=== PATIENT | female | born 1965 | race Caucasian/White ===

== ENCOUNTER → 2020-07-31 13:30 | Outpatient (BNVA) | payer OTHER, SELFPAY | PROVIDERS: Visit Provider Orthopaedic Surgery | DX: M65.4 Radial styloid tenosynovitis [de Quervain] (principal) | CPT/HCPCS: 99212 ==

== ENCOUNTER 2021-01-10 09:09 | Outpatient (REF) | payer OTHER, SELFPAY ==
[2021-01-10 11:19] LABS: MANUAL DIFF FLAG NO
[2021-01-10 11:22] LABS: Basophils Percent Auto 0.3 % (0-2); Eosinophils Absolute Auto 0.2 X10*3/uL (0.0-0.4); Hematocrit 36.7 % (37-47); Hemoglobin 11.3 g/dl (12.0-16.0); Imm Gran Abs Auto 0.02 X10*3/uL (0.00-0.03); Imm Gran Pct Auto 0.3 % (0.0-0.4); Lymphocytes Absolute Auto 1.8 X10*3/uL (1.2-4.9); Lymphocytes Percent Auto 27.5 % (20-40); Mean Corpuscular HGB Conc 30.8 g/dl (31.0-35.0); Mean Corpuscular Hemoglobin 27.9 pg (27.0-33.0); Mean Corpuscular Volume 90.6 fL (80-98); Mean Platelet Volume 10.9 fL (9.4-12.3); Monocytes Absolute Auto 0.6 X10*3/uL (0.1-1.2); Monocytes Percent Auto 8.6 % (2-11); Neutrophils Absolute Auto 3.9 X10*3/uL (2.0-8.3); Neutrophils Percent Auto 60.3 % (45-73); Platelet Count 315 X10*3/uL (160-400); Red Blood Count 4.05 X10*6/uL (4.20-5.50); Red Cell Distribution Width 13.9 % (11.0-16.0); White Blood Count 6.4 X10*3/uL (4.8-10.8)
[2021-01-10 12:25] LABS: Alanine Aminotransferase 15 U/L (0-31); Albumin Level 4.2 g/dL (3.5-5.0); Alkaline Phosphatase 114 U/L (39-117); Anion Gap 13 (12-20); Aspartate Amino Transferase 16 U/L (5-31); Bilirubin Total 0.4 mg/dL (0.0-1.0); Blood Urea Nitrogen 20 mg/dL (9-16); Calcium 9.7 mg/dL (8.4-10.2); Carbon Dioxide 29 mmol/L (22-29); Chloride 105 mmol/L (96-108); Cholesterol 183 mg/dL; Estimated Glomerular Filt Rate > 60; Glucose Fasting 111 mg/dL (60-99); HDL Cholesterol 46 mg/dL; LDL Cholesterol Calculated 78 mg/dl; Potassium 4.7 mmol/L (3.3-5.1); Sodium 142 mmol/L (135-145); Total Protein 7.3 g/dL (6.5-8.0); Triglycerides 299 mg/dL
== END 2021-01-10 09:10 | disposition home or self-care (01) ==
LOC: HO.LAB 09:09
PROVIDERS: Absent Provider Nurse Practitioner Family; PCP Nurse Practitioner Family; Visit Provider Physician Assistant
DX: K52.9 Noninfective gastroenteritis and colitis, unspecified (principal); K21.9 Gastro-esophageal reflux disease without esophagitis; Z87.19 Personal history of other diseases of the digestive system
CPT/HCPCS: 36415; 80053; 80061; 85025; Q3014

== ENCOUNTER → 2021-05-29 13:37 | Outpatient (BNVA) | payer OTHER, SELFPAY | PROVIDERS: PCP Internal Medicine; Referring Provider Internal Medicine; Visit Provider Physician Assistant ==

== ENCOUNTER → 2021-05-30 07:10 | Outpatient (BNVA) | payer OTHER, SELFPAY | PROVIDERS: PCP Internal Medicine; Visit Provider Surgery ==

== ENCOUNTER → 2021-06-04 09:16 | Outpatient (BNVA) | payer OTHER, SELFPAY | PROVIDERS: PCP Internal Medicine; Visit Provider Surgery | DX: Z13.89 Encounter for screening for other disorder (principal) | CPT/HCPCS: Q3014 ==

== ENCOUNTER 2021-06-18 11:29 | Outpatient (REF) | payer OTHER, SELFPAY ==
--- NOTE | ~2021-06-18 | XR_ITS ---
EXAMINATION: XR CHEST CLINICAL INFORMATION: Obesity COMPARISON: None TECHNIQUE: 2 views of the chest were obtained. FINDINGS: The cardiac and mediastinal contours are normal. The lungs are clear. There is no pleural effusion or pneumothorax. There are degenerative changes of the spine. XR/XR chest 2V IMPRESSION: No evidence for acute disease in the chest.
--- NOTE | 2021-06-18 12:09 | ECG_ITS ---
Test Reason : sob Blood Pressure : / mmHG Vent. Rate : 056 BPM Atrial Rate : 056 BPM P-R Int : 188 ms QRS Dur : 094 ms QT Int : 424 ms P-R-T Axes : 048 018 049 degrees QTc Int : 409 ms Sinus bradycardia Otherwise normal ECG No previous ECGs available Referred By: Vipul Boyce Electronically Signed By:MARIS BAUTISTA
[2021-06-18 12:17] LABS: MANUAL DIFF FLAG NO
[2021-06-18 12:27] LABS: Basophils Percent Auto 0.5 % (0-2); Eosinophils Absolute Auto 0.2 X10*3/uL (0.0-0.4); Eosinophils Percent Auto 4.2 % (0-4); Hematocrit 37.7 % (37-47); Hemoglobin 11.7 g/dl (12.0-16.0); Imm Gran Abs Auto 0.01 X10*3/uL (0.00-0.03); Imm Gran Pct Auto 0.2 % (0.0-0.4); Lymphocytes Absolute Auto 1.4 X10*3/uL (1.2-4.9); Lymphocytes Percent Auto 31.5 % (20-40); Mean Corpuscular Hemoglobin 27.8 pg (27.0-33.0); Mean Corpuscular Volume 89.5 fL (80-98); Mean Platelet Volume 11.1 fL (9.4-12.3); Monocytes Absolute Auto 0.3 X10*3/uL (0.1-1.2); Monocytes Percent Auto 7.2 % (2-11); Neutrophils Absolute Auto 2.4 X10*3/uL (2.0-8.3); Neutrophils Percent Auto 56.4 % (45-73); Platelet Count 317 X10*3/uL (160-400); Red Blood Count 4.21 X10*6/uL (4.20-5.50); Red Cell Distribution Width 13.8 % (11.0-16.0); White Blood Count 4.3 X10*3/uL (4.8-10.8)
[2021-06-18 13:04] LABS: Estimated Average Glucose 134 mg/dL; Hemoglobin A1c % 6.3 %
[2021-06-18 13:44] LABS: Vitamin B12 768 pg/mL (200-900)
[2021-06-18 15:08] LABS: Ferritin 21 ng/mL (10-250); TSH reflex Free T4 1.14 uIU/mL (0.32-4.0); Vitamin D 25-OH Total 44.2 ng/mL (>30)
[2021-06-18 15:16] LABS: Alanine Aminotransferase 16 U/L (0-31); Albumin Level 4.1 g/dL (3.5-5.0); Alkaline Phosphatase 94 U/L (39-117); Anion Gap 13 (12-20); Aspartate Amino Transferase 19 U/L (5-31); Bilirubin Total 0.3 mg/dL (0.0-1.0); Blood Urea Nitrogen 12 mg/dL (9-16); C Reactive Protein 0.22 mg/dL (< or = 0.50); Calcium 9.5 mg/dL (8.4-10.2); Carbon Dioxide 27 mmol/L (22-29); Chloride 108 mmol/L (96-108); Cholesterol 140 mg/dL; Estimated Glomerular Filt Rate > 60; Glucose Random 113 mg/dL (60-115); HDL Cholesterol 47 mg/dL; Iron 52 mcg/dL (30-160); LDL Cholesterol Calculated 70 mg/dl; Percent Iron Saturation 15 % (15-50); Potassium 4.5 mmol/L (3.3-5.1); Sodium 143 mmol/L (135-145); Total Iron Binding Capacity 338 mcg/dL (228-428); Total Protein 6.9 g/dL (6.5-8.0); Triglycerides 119 mg/dL; Unsaturated Iron Binding 286 ug/dL
[2021-06-19 18:17] LABS: Insulin Level Total 6.7 uIU/mL
[2021-06-19 18:27] LABS: Calcium (PTHI) 9.6 mg/dL (8.6-10.4); PTHI 34 pg/mL (14-64)
[2021-06-21 06:28] LABS: Zinc 74 mcg/dL (60-130)
[2021-06-22 12:16] LABS: Vitamin B1 16 nmol/L (8-30)
[2021-06-24 00:26] LABS: Vitamin A 74 mcg/dL (38-98)
== END 2021-06-18 11:30 | disposition home or self-care (01) ==
LOC: HO.LAB 11:29
PROVIDERS: PCP Internal Medicine; Visit Provider Surgery
DX: K21.9 Gastro-esophageal reflux disease without esophagitis (principal); E66.01 Morbid (severe) obesity due to excess calories; E11.9 Type 2 diabetes mellitus without complications; E78.5 Hyperlipidemia, unspecified; G47.30 Sleep apnea, unspecified
CPT/HCPCS: 36415; 71046; 80053; 80061; 82306; 82607; 82728; 82746; 83036; 83525; 83540; 83970; 84425; 84443; 84590; 84630; 85025; 86140; 93005

== ENCOUNTER 2021-06-28 14:31 | Outpatient (REF) | payer OTHER, SELFPAY ==
[2021-06-29 12:09] LABS: H Pylori Breath Test Negative (Negative)
== END 2021-06-28 14:32 | disposition home or self-care (01) ==
LOC: CF 14:31
PROVIDERS: Surgery; Visit Provider Physician Assistant
DX: Z11.0 Encounter for screening for intestinal infectious diseases (principal); K25.9 Gastric ulcer, unspecified as acute or chronic, without hemorrhage or perforation
CPT/HCPCS: 36415; 83013; 99211

== ENCOUNTER → 2021-06-29 11:14 | Outpatient (BNVA) | payer OTHER, SELFPAY | PROVIDERS: PCP Internal Medicine; Visit Provider Surgery | CPT/HCPCS: Q3014 ==

== ENCOUNTER → 2021-07-12 10:15 | Outpatient (BNVA) | payer OTHER, SELFPAY | PROVIDERS: PCP Internal Medicine; Referring Provider Internal Medicine; Visit Provider Dietitian, Registered | DX: E66.9 Obesity, unspecified (principal); Z68.39 Body mass index [BMI] 39.0-39.9, adult | CPT/HCPCS: 97802 ==

== ENCOUNTER 2021-07-25 08:07 | Outpatient (REF) | payer OTHER, SELFPAY ==
--- NOTE | ~2021-07-25 | FL_ITS ---
EXAMINATION: XR GI SERIES CLINICAL INFORMATION: Obesity. Preop. COMPARISON: None TECHNIQUE: Upper GI was performed using thin and thick barium and effervescent granules. FINDINGS: Esophageal motility is normal. There is a small sliding-type hiatal hernia and mild gastroesophageal reflux. The stomach and duodenum are normal-appearing. No fold thickening, mass, ulcer or stricture is seen. FLUOROSCOPY TIME: 1 minute DOSE AREA PRODUCT: 11 christensen per centimeter squared. 24 saved fluoroscopic images. FL/FL upper GI series IMPRESSION: Small sliding-type hiatal hernia and mild gastroesophageal reflux. Otherwise unremarkable exam.
--- NOTE | ~2021-07-25 | US_ITS ---
EXAMINATION: US COMPLETE ABDOMEN WITH LIVER ELASTOGRAPHY CLINICAL INFORMATION: Obesity COMPARISON: None. TECHNIQUE: Real-time imaging of the abdominal viscera. Noninvasive ultrasound liver fibrosis assessment is performed using Xochilt ElastPQ point quantification shear wave elastography (pSWE) with a C5-2 MHz transducer. Multiple elastography samples are obtained. FINDINGS: PANCREAS: The visualized pancreatic head and body are normal in appearance. The remainder of the pancreas is obscured from visualization by the overlying bowel gas. ABDOMINAL AORTA: The proximal and middle aortic segments are normal in caliber. The distal abdominal aorta is not well visualized due to bowel gas. INFERIOR VENA CAVA: Visualized portions are normal. LIVER: Liver echotexture is slightly increased suggestive of fatty infiltration. There is a hypoechoic area adjacent to the gallbladder suggestive of focal fatty sparing. There is a 1.4 x 0.8 x 1.5 cm hypoechoic lesion in the peripheral left lobe of the liver suggestive of a cyst. No other focal liver lesion. No biliary duct dilatation. The right lobe measures 17 cm in length. The left lobe measures 11 cm in length. Portal flow is normal/hepatopedal Shear wave liver elastography median stiffness is 1.2 m/s (reference: normal median stiffness is 1.3 m/s or less). IQR/median stiffness to assess sampling precision is 0.16 (reference: good quality data set is IQR/median stiffness of 0.15 or less). GALLBLADDER: Normal. The gallbladder is physiologically distended without evidence of stones, sludge, polyps, wall thickening or pericholecystic fluid. COMMON BILE DUCT: Normal in caliber measuring 0.3 cm in diameter. RIGHT KIDNEY: Normal. No hydronephrosis. No renal calculi or focal parenchymal lesions. The kidney measures 11 cm in maximum dimension. LEFT KIDNEY: Normal. No hydronephrosis. No renal calculi or focal parenchymal lesions. The kidney measures 11.5 cm in maximum dimension. SPLEEN: Normal. The spleen measures 10 cm in maximum dimension. FREE FLUID: None. US/US abdomen comp w elastography IMPRESSION: 1. Impression: Echogenic liver suggestive of fatty infiltration. Small cyst in the left lobe of the liver. Limited visualization of the pancreas and distal abdominal aorta. 2. Liver elastography: Adequate liver sampling. Normal liver stiffness. REFERENCE: Society of Radiologists in Ultrasound Liver Stiffness Thresholds (2019): LIVER STIFFNESS THRESHOLDS: *Liver Stiffness equal or less than 1.3 m/s: High probability of being normal. *Liver Stiffness less than 1.7 m/s: In the absence of other known clinical signs, rules out compensated advanced chronic liver disease. *Liver Stiffness 1.7-2.1 m/s: Suggestive of compensated advanced chronic liver disease but need further test for confirmation. *Liver Stiffness over 2.1 m/s: Rules in compensated advanced chronic liver disease. *Liver Stiffness over 2.4 m/s: Suggestive of clinically significant portal hypertension. QUALITY OF DATA SET: *IQR/Median value equal or less than 0.15 implies a quality data set. *IQR/Median value over 0.15 implies a poor quality data set. SIGNIFICANT CHANGE FROM PRIOR EXAM: Significant change if liver stiffness measurement is 10% or greater from prior exam. OTHER CONSIDERATIONS: The stage of liver fibrosis may be overestimated in the setting of acute hepatitis, liver inflammation, elevated liver function tests, hepatic vascular congestion, obstructive cholestasis, non-fasting state, and infiltrative diseases such as amyloidosis and lymphoma. In some patients with NAFLD, the liver stiffness thresholds for compensated advanced chronic liver disease may be lower. In causes other than viral hepatitis and NAFLD, liver stiffness thresholds are not well established.
== END 2021-07-25 08:08 | disposition home or self-care (01) ==
LOC: HO.US 08:07
PROVIDERS: PCP Internal Medicine; Visit Provider Surgery
DX: Z01.818 Encounter for other preprocedural examination (principal); K21.9 Gastro-esophageal reflux disease without esophagitis; E66.01 Morbid (severe) obesity due to excess calories; E11.9 Type 2 diabetes mellitus without complications; E78.5 Hyperlipidemia, unspecified; G47.30 Sleep apnea, unspecified
CPT/HCPCS: 74240; 76705; 76981

== ENCOUNTER → 2021-07-27 08:23 | Outpatient (BNVA) | payer OTHER, SELFPAY | PROVIDERS: PCP Internal Medicine; Referring Provider Surgery; Visit Provider Dietitian, Registered | DX: E66.9 Obesity, unspecified (principal); Z68.38 Body mass index [BMI] 38.0-38.9, adult | CPT/HCPCS: 97803 ==

== ENCOUNTER → 2021-08-01 08:07 | Outpatient (BNVA) | payer OTHER, SELFPAY | PROVIDERS: PCP Internal Medicine; Visit Provider Surgery | DX: E66.9 Obesity, unspecified (principal); Z68.39 Body mass index [BMI] 39.0-39.9, adult | CPT/HCPCS: Q3014 ==

== ENCOUNTER → 2021-08-29 08:00 | Outpatient (BNVA) | payer OTHER, SELFPAY | PROVIDERS: PCP Internal Medicine; Visit Provider Surgery | DX: E11.9 Type 2 diabetes mellitus without complications (principal); E78.00 Pure hypercholesterolemia, unspecified; E78.5 Hyperlipidemia, unspecified; E66.9 Obesity, unspecified; K21.9 Gastro-esophageal reflux disease without esophagitis | CPT/HCPCS: Q3014 ==

== ENCOUNTER → 2021-08-31 10:08 | Outpatient (BNVA) | payer OTHER, SELFPAY | PROVIDERS: PCP Internal Medicine; Referring Provider Internal Medicine; Visit Provider Physician Assistant ==

== ENCOUNTER 2021-09-06 14:00 | Inpatient (IN) | payer OTHER, SELFPAY ==
[2021-08-31 12:56] LABS: MANUAL DIFF FLAG NO
[2021-08-31 13:31] LABS: Basophils Percent Auto 0.5 % (0-2); Eosinophils Absolute Auto 0.1 X10*3/uL (0.0-0.4); Eosinophils Percent Auto 2.4 % (0-4); Hematocrit 39.5 % (37.0-47.0); Hemoglobin 12.3 g/dl (12.0-16.0); Lymphocytes Absolute Auto 1.7 X10*3/uL (1.2-4.9); Lymphocytes Percent Auto 31.3 % (20-40); Mean Corpuscular HGB Conc 31.1 g/dl (31.0-35.0); Mean Corpuscular Hemoglobin 27.6 pg (27.0-33.0); Mean Corpuscular Volume 88.8 fL (80.0-98.0); Mean Platelet Volume 10.8 fL (9.4-12.3); Monocytes Absolute Auto 0.4 X10*3/uL (0.1-1.2); Neutrophils Absolute Auto 3.2 x10*3/uL (2.0-8.3); Neutrophils Percent Auto 57.8 % (45-73); Platelet Count 365 X10*3/uL (160-400); Red Blood Count 4.45 X10*6/uL (4.20-5.50); White Blood Count 5.5 X10*3/uL (4.8-10.8)
[2021-08-31 13:35] LABS: INTERNATIONAL NORM RATIO 1.2 (0.9-1.1); Prothrombin Time 13.7 SEC (9.9-13.0)
[2021-08-31 13:38] LABS: Partial Thromboplastin Time 44.9 SEC (24.1-38.0)
[2021-08-31 14:00] LABS: Alanine Aminotransferase 12 U/L (0-31); Albumin Level 4.5 g/dL (3.5-5.0); Alkaline Phosphatase 92 U/L (39-117); Anion Gap 14 (12-20); Aspartate Amino Transferase 17 U/L (5-31); Bilirubin Total 0.5 mg/dL (0.0-1.0); Blood Urea Nitrogen 24 mg/dL (9-16); C Reactive Protein 0.37 mg/dL (< or = 0.50); Calcium 10.2 mg/dL (8.4-10.2); Carbon Dioxide 28 mmol/L (22-29); Chloride 107 mmol/L (96-108); Cholesterol 176 mg/dL; Estimated Glomerular Filt Rate > 60; Glucose Random 103 mg/dL (60-115); HDL Cholesterol 50 mg/dL; LDL Cholesterol Calculated 109 mg/dl; Potassium 4.6 mmol/L (3.3-5.1); Sodium 144 mmol/L (135-145); Total Protein 7.8 g/dL (6.5-8.0); Triglycerides 85 mg/dL
[2021-08-31 14:01] LABS: Estimated Average Glucose 131 mg/dL; Hemoglobin A1c % 6.2 %
[2021-08-31 14:23] LABS: Insulin 10 uU/mL (2-29); TSH reflex Free T4 0.74 uIU/mL (0.32-4.0)
--- NOTE | 2021-09-01 19:05 | MHC.SHP ---
Pre-Procedural Eval Section A Date of Service: 09/01/21 The patient is an INPATIENT: Yes The History & Physical has been completed within 30 days and I have reviewed it.: No Section B Chief Complaint: Obesity Relevant Family History (Specify if Yes): Yes Relevant Social History: None Present Medications: None Medical History: No relevant PMH History of Previous Operations: No relevant previous surgery Allergies: Allergies Allergy/AdvReac Type Severity Reaction Status Date / Time penicillin V Allergy Intermediate Hives Verified 08/29/21 12:58 Review of Systems Sugical H&P ROS: Negative: Constitution, Cardiovascular, Respiratory, Neurological, Psychiatric, Hem-Onc, Allergic/Immunologic, Gastrointestinal, Genitourinary, Musculoskeletal, Integumentary, Endocrine and Eyes/Ears/Nose/Throat Exam Surgical H&P Exam: Normal: HEENT, Normal: Heart, Normal: Lungs, Normal: Extremities, Normal: Abdomen, Normal: Skin and Normal: Neurological Plan Diagnosis/Plan: Unchanged I have reviewed the history and physical and performed a pertinent physical examination on my patient. No changes have occurred unless specified.
[2021-09-03 12:53] VITALS: BMI 37.6
--- NOTE | 2021-09-05 09:11 | HO.ANESPROP2 ---
Documented by User: Damaris Hernandez NP 09/05/21 09:13 HPI - Anesthesia Eval Consult details Narrative: 55yo F for Gastrectomy Sleeve, EGD, Poss Diaphragmatic Hernia, Poss Ventral Hernia, Poss open No blood products d/t worship [facility] Active Problems Active Problems: All Active Problems (Updated 09/03/21 @ 13:00 by Charlene Tapia, DANIEL) Change in bowel habit (Acute) Acid reflux (Acute) Obesity (Acute) BMI 39.0-39.9,adult (Acute) BMI 38.0-38.9,adult (Acute) Insomnia (Acute) Bipolar 1 disorder (Acute) Asthma (Acute) Hyperlipidemia (Acute) Sleep apnea with use of continuous positive airway pressure (CPAP) (Acute) Plantar fasciitis of right foot (Acute) Hypovitaminosis D (Acute) Pure hypercholesterolemia (Acute) Moderately severe recurrent major depression (Acute) Morbid obesity (Acute) Type 2 diabetes mellitus (Acute) All medications reviewed (Acute) Anxiety and depression (Acute) High cholesterol (Acute) Gastric ulcer (Acute) Carpal tunnel syndrome (Acute) De Quervain's disease (radial styloid tenosynovitis) (Acute) Past Medical History Medical History All medications reviewed Anxiety and depression Asthma Bipolar 1 disorder Carpal tunnel syndrome De Quervain's disease (radial styloid tenosynovitis) Gastric ulcer High cholesterol Hx of cardiac murmur Hx of head injury Hyperlipidemia Hypovitaminosis D Insomnia Migraines Moderately severe recurrent major depression Morbid obesity Patient is Taoism Plantar fasciitis of right foot Presence of dental bridge PTSD (post-traumatic stress disorder) Pure hypercholesterolemia Sleep apnea with use of continuous positive airway pressure (CPAP) Type 2 diabetes mellitus Family History Family History (Updated 05/16/21 @ 10:05 by INDY Mandel) Mother No problems noted. Father Alzheimers disease Diabetes Mother Alzheimers disease Osteoarthritis Rheumatoid arthritis Sister Mental disability Sister Cirrhosis Surgical History Surgical History History of appendectomy (~2013) Hx of tubal ligation Social History Social History (Updated 05/29/21 @ 13:06 by INDY Cr) Housing: House Are you a primary home care scheduler to a significant other at home: No Do you presently have visiting nurse or other home services: No Alcohol intake: never Patient Tobacco Use Status: Never used Tobacco e-Cigarette/Vaping Use: Never Used Second Hand Smoke Exposure: No service: No Current occupational status: unemployed Current occupation: right handed Meds Allergies Allergy/AdvReac Type Severity Reaction Status Date / Time penicillin V Allergy Intermediate Hives Verified 09/06/21 08:38 Home Medications Medication Instructions Recorded Confirmed Last Taken Type biotin 10,000 mcg-keratin 100 mg tab PO 07/31/20 08/29/21 Unknown History tablet (Biotin Plus Keratin) cholecalciferol (vitamin D3) 125 125 mcg PO DAILY 07/31/20 08/29/21 Unknown History mcg (5,000 unit) tablet (Vitamin D3) clonazepam 1 mg tablet 1 mg PO BID 07/31/20 09/03/21 Unknown History eszopiclone 3 mg tablet 3 mg PO BEDTIME 07/31/20 09/03/21 Unknown History hydroxyzine HCl 50 mg tablet 25 mg PO BEDTIME 07/31/20 09/03/21 Unknown History multivitamin-ferrous 1 tab PO DAILY 07/31/20 08/29/21 Unknown History fumarate-folic acid 18 mg-400 mcg tablet albuterol sulfate 90 mcg/actuation 2 puff INHALATION Q6H PRN 06/04/21 09/03/21 Unknown History aerosol inhaler cyclobenzaprine 5 mg tablet 5 mg PO TID PRN 06/04/21 08/29/21 Unknown History Exam Exam Date and Time: September 05, 2021 0911 Height,Weight and Vital Signs: Height 5 ft 2 in Weight 93.44 kg Pertinent Lab Results Pertinent Lab Results: Laboratory Tests 08/31/21 08/31/21 08/31/21 12:54 12:54 12:54 WBC 5.5 RBC 4.45 Hgb 12.3 Hct 39.5 MCV 88.8 MCH 27.6 MCHC 31.1 RDW 14.0 Plt Count 365 MPV 10.8 Immature Gran % (Auto) 0.0 Neut % (Auto) 57.8 Lymph % (Auto) 31.3 [place] % (Auto) 8.0 Eos % (Auto) 2.4 Baso % (Auto) 0.5 Lymph # (Auto) 1.7 [place] # (Auto) 0.4 Eos # (Auto) 0.1 Baso # (Auto) 0.0 Abs Immat Gran (auto) 0.00 Absolute Neuts (auto) 3.2 Absolute Nucleated RBC 0.000 Nucleated RBC % (auto) 0.0 PT 13.7 H INR 1.2 H APTT 44.9 H Sodium 144 Potassium 4.6 Chloride 107 Carbon Dioxide 28 Anion Gap 14 BUN 24 H Creatinine 0.90 Estim Creat Clear Calc TNP Estimated GFR > 60 Random Glucose 103 Estimat Average Glucose Hemoglobin A1c % Insulin Level 10 Calcium 10.2 D Total Bilirubin 0.5 AST 17 ALT 12 Alkaline Phosphatase 92 C-Reactive Protein 0.37 Total Protein 7.8 Albumin 4.5 Triglycerides 85 Cholesterol 176 D LDL Cholesterol, Calc 109 HDL Cholesterol 50 TSH 0.74 Blood Type Antibody Screen 08/31/21 08/31/21 12:54 12:55 WBC RBC Hgb Hct MCV MCH MCHC RDW Plt Count MPV Immature Gran % (Auto) Neut % (Auto) Lymph % (Auto) [place] % (Auto) Eos % (Auto) Baso % (Auto) Lymph # (Auto) [place] # (Auto) Eos # (Auto) Baso # (Auto) Abs Immat Gran (auto) Absolute Neuts (auto) Absolute Nucleated RBC Nucleated RBC % (auto) PT INR APTT Sodium Potassium Chloride Carbon Dioxide Anion Gap BUN Creatinine Estim Creat Clear Calc Estimated GFR Random Glucose Estimat Average Glucose 131 Hemoglobin A1c % 6.2 Insulin Level Calcium Total Bilirubin AST ALT Alkaline Phosphatase C-Reactive Protein Total Protein Albumin Triglycerides Cholesterol LDL Cholesterol, Calc HDL Cholesterol TSH Blood Type O Positive Antibody Screen NEGATIVE Narrative Narrative: EKG 05/2021 Vent. Rate : 056 BPM ? ? Atrial Rate : 056 BPM ?? P-R Int : 188 ms? QRS Dur : 094 ms ? ? QT Int : 424 ms ? ? ? P-R-T Axes : 048 018 049 degrees ?? QTc Int : 409 ms ? Sinus bradycardia Otherwise normal ECG No previous ECGs available Assessment and Plan Assessment Anesthesia Assessment: Chart Reviewed Documented by User: Pardeep Erazo 09/06/21 09:14 [facility] Past Medical History Medical History All medications reviewed Anxiety and depression Asthma Bipolar 1 disorder Carpal tunnel syndrome De Quervain's disease (radial styloid tenosynovitis) Gastric ulcer High cholesterol Hx of cardiac murmur Hx of head injury Hyperlipidemia Hypovitaminosis D Insomnia Migraines Moderately severe recurrent major depression Morbid obesity Patient is Taoism Plantar fasciitis of right foot Presence of dental bridge PTSD (post-traumatic stress disorder) Pure hypercholesterolemia Sleep apnea with use of continuous positive airway pressure (CPAP) Type 2 diabetes mellitus Functional capacity: independent ambulation (Greater than 4 mets . Excercises for about an hour. ) Family History Family History (Updated 05/16/21 @ 10:05 by INDY Mandel) Mother No problems noted. Father Alzheimers disease Diabetes Mother Alzheimers disease Osteoarthritis Rheumatoid arthritis Sister Mental disability Sister Cirrhosis Family history of problems with anesthesia: No Surgical History Surgical History History of appendectomy (~2013) Hx of tubal ligation History of Problems with Anesthesia: No Social History Social History (Updated 05/29/21 @ 13:06 by Mark Merchant Mary) Housing: House Are you a primary home care scheduler to a significant other at home: No Do you presently have visiting nurse or other home services: No Alcohol intake: never Patient Tobacco Use Status: Never used Tobacco e-Cigarette/Vaping Use: Never Used Second Hand Smoke Exposure: No service: No Current occupational status: unemployed Current occupation: right handed Meds Allergies Allergy/AdvReac Type Severity Reaction Status Date / Time penicillin V Allergy Intermediate Hives Verified 09/06/21 08:38 Home Medications Medication Instructions Recorded Confirmed Last Taken Type biotin 10,000 mcg-keratin 100 mg tab PO 07/31/20 08/29/21 Unknown History tablet (Biotin Plus Keratin) cholecalciferol (vitamin D3) 125 125 mcg PO DAILY 07/31/20 08/29/21 Unknown History mcg (5,000 unit) tablet (Vitamin D3) clonazepam 1 mg tablet 1 mg PO BID 07/31/20 09/03/21 Unknown History eszopiclone 3 mg tablet 3 mg PO BEDTIME 07/31/20 09/03/21 Unknown History hydroxyzine HCl 50 mg tablet 25 mg PO BEDTIME 07/31/20 09/03/21 Unknown History multivitamin-ferrous 1 tab PO DAILY 07/31/20 08/29/21 Unknown History fumarate-folic acid 18 mg-400 mcg tablet albuterol sulfate 90 mcg/actuation 2 puff INHALATION Q6H PRN 06/04/21 09/03/21 Unknown History aerosol inhaler cyclobenzaprine 5 mg tablet 5 mg PO TID PRN 06/04/21 08/29/21 Unknown History Exam Airway Mallampati Class: II TM Dist: >3cm Neck ROM: Full Partial: Lower Loose/Missing/Broken Teeth: Yes Heart: rrr Lungs: bl breath sounds Assessment and Plan Assessment Anesthesia Assessment: Anesthesia Plan Discussed Final Anesthetic Review Family History of Problems with Anesthesia: No History of Problems with Anesthesia: No NPO: Yes ASA Class: III Final Preanesthetic Review: Meds/Allgs Chart Reviewed Patient Risk: Intermediate Procedure Risk: Intermediate Anesthetic Plan Anesthetic Plan: GA Disposition: Standard PACU
[2021-09-06] VITALS (21 sets, daily range): BP systolic 126–158; BP diastolic 72–85; PULSE 69–81; RESP 12–24; TEMP 36–36.9; O2SAT 96–100
[2021-09-06 09:03] LABS: COVID-19 Test Negative (Negative)
[2021-09-06] MEDS: Lactated Ringers 1,000 ML 100 ML IVCONT ×2 (09:24→15:02)
[2021-09-06] MEDS: Lactated Ringers 1,000 ML 999 ML IV (09:26)
[2021-09-06 09:36] LABS: Glucose, Whole Blood 78 mg/dL (60-115)
--- NOTE | 2021-09-06 13:58 | P.BOP_ITS ---
Brief Operative Note Date of Service: 09/06/21 Pre-op diagnosis: Severe obesity with comorbidities (see below) Post-op diagnosis: same (& diaphragmatic hernia and abdominal adhesions and gastric polyps) Procedure: INITIAL PATIENT BMI ON PRESENTATION AT OUR OFFICE: 42 kg/m2 LAST BMI BEFORE SURGERY: 38.1 kg/m2 COMORBIDITIES: non-insulin dependent diabetes melitus, sleep apnea on CPAP, GERD, bipolar disorder, asthma, knee pain, diaphragmatic hernia, depression, anxiety, liver steatosis, insomnia The patient participated in an intensive weekly lifestyle ?intervention and exercise program during which the patient ?has lost between the initial office visit and the last preoperative visit 22.6lbs, or 9.84% of initial actual body weight. The patient met the BMI-criteria for bariatric surgery based on the BMI on initial presentation. The patient should not be penalized for achieving such weight loss because ?it is not sustainable long-term without surgical intervention and it was achieved in preparation for bariatric surgery ?under my direction and based on my published research ([email or web address] and? [email or web address]/[email or web address]/pdf ) ?that a 10% preoperative weight loss improves long-term weight loss after surgery and reduces perioperative complications.? Insurance carriers such as [facility] have endorsed my recommendations ?and have included in their policies criteria to include a 10% preoperative weight loss requirement. PROCEDURE: Esophago-gastroscopy with biopsies, laparoscopic repair of incarcerated diaphragmatic hernia, laparoscopic lysis of adhesions, laparoscopic sleeve gastrectomy and laparoscopic gastropexy INDICATIONS: This is a 55 year-old female who was electively scheduled for laparoscopic, possibly open sleeve gastrectomy. The risks and complications of the procedure were discussed with the patient in advance, particularly the possibility of ; pulmonary embolism; staple line leak; bleeding; GERD; cardiac, pulmonary, or renal complications; as well as long-term problems such as insufficient weight loss, vitamin deficiency, strictures, or ulcers. The patient understood all the risks, and was in agreement to proceed with surgery. DESCRIPTION OF PROCEDURE: After informed consent was obtained from the patient, the patient was given preoperative antibiotics, and was transferred to the operating room. After successful induction of general anesthesia, a Gonzáles catheter and pneumatic compressive devices were placed on both lower extremities. An upper endoscopy was performed next. The oropharynx and esophagus appeared to be within normal limits. There was a diaphragmatic hernia present of moderate size consistent with the findings of the preoperative upper GI. The stomach was entered. There were some polyps in mid-stomach. Those were biopsied and one fo them was sent fresh to Pathology department and the other on formalin. I spoke to Dr. Luna intraoperatively and the tissue sent appeared to be a hyperplastic gastric polyp. Then after all fluid and air were suctioned and the stomach was fully decompressed, the scope was withdrawn and secured in the mid esophagus. The patient was then prepped and draped in the usual sterile manner, and abdominal access was established at the right upper quadrant with the Mohini technique. A 12 mm blunt port was inserted, and the abdomen was insufflated with CO2 to a pressure of 15 mmHg. Under direct visualization, additional ports were placed, specifically two 5 mm Versi-step ports to the left upper quadrant, and a 5 mm Versi-Step port to the right upper quadrant. 1% lidocaine plain was used to infiltrate all port sites as well as all fascia defects. There were adhesions in the abdomen from previous open appendectomy involving the omentum and the anterior left abdominal wall. Those were lysed completely with the ultrasonic device. Following that, the patient was placed in a steep reverse Trendelenburg position. An additional 5 mm port was placed to the right flank for the Mediflex retractor that was used to retract the left lobe of the liver. The gastro-esophageal fat pad was opened with the ultrasonic device (Thunderbeat, Olympus) and the anterior esophagus and hiatus were exposed. The angle of His was opened with the ultrasonic device the fundus of the stomach from any diaphragmatic and splenic attachments. I then opened the gastrocolic ligament between the transverse colon and the greater curvature of the stomach with the ultrasonic device to enter the lesser sac and facilitate the ligation of the short gastric vessels. I started at a mid-point along the greater curvature and using the Thunderbeat, all short gastric vessels were divided all the way to the angle of His until the left sy was completely dissected at its entirety. I then divided the gastro-colic ligament distally to a distance of about 3-4 cm proximal to the esophagus. There was an obvious significant-sized hiatal hernia with part of the stomach incarcerated into the mediastinum (pictures were obtained). I continued dissecting along the hiatus toward the left sy and the angle of His. I fully mobilized the fat pad that was incarcerated in the hernia. I then continued by dissecting even further into the posterior retro-esophageal space all the way to the angle of His. I continued to mobilize the esophagus into the mediastinum circumferentially. Both vagal nerves were seen and preserved. At that point, I was able to have at least 3 to 5 cm of esophagus into the abdomen.? After I completely mobilized the esophagus from both the left and right sy and I had a good mobilization of the esophagus circumferentially, I closed the hernia defect with four interrupted #0 Surgidac sutures using the Endo Stitch device, two of which were placed posterior and two anterior to the esophagus. ? The stomach was then divided transversely with one Endo TEX-45 purple, one TEX- 60 purple, 2 TEX-45 orange and three TEX-60 articulating orange loads using the AEON stapler and loads. Every effort was made that the gastric sleeve had a tubular shape and an even caliber throughout. Once the sleeve resection was completed, the staple line of the gastric sleeve was reinforced with Hemoclips. The resected stomach was retrieved without difficulty from the Mohini port. A gastropexy was then performed in order to prevent postoperative GERD and partial gastric volvulus. Several interrupted 2.0 Surgidac sutures were placed between the sleeve's staple line and the previously divided greater omentum and gastro-colic ligament using the Endo-Stitch device. ?An upper endoscopy was performed. There was no narrowing at the GE junction. The scope was easily advanced all the way to the pylorus which was clearly visualized. There was no narrowing anywhere and the sleeve's caliber was even throughout. The sleeve's staple line was inspected and there was no evidence of ischemia, bleeding or dehiscence. At that point the gastroscope was withdrawn from the patient?s mouth while we were decompressing the bowel and the stomach from any remaining air. I looked into the lesser sac to see how the sleeve was situating and it was situating well. There was no bleeding from the staple line, spleen, or short gastric vessels. The Mediflex retractor was removed, and the undersurface of the liver was inspected and there was no bleeding. The patient was placed in supine position. I closed the fascial defect of the 12 mm port site with a figure of eight #1 Polysorb suture. Then 100 cc 0.25 % Marcaine plain with 10 mg of Dexamethasone were used to infiltrate the fascial closure as well as all skin incisions. At this point, the abdomen was deflated, all ports were removed under direct vision, and no bleeding was noted from any of the port sites. The skin incisions were irrigated with saline and were closed with 4-0 absorbable monofilament sutures. Steri-Strips and OpSites were used to cover all incisions. The patient was extubated and was transferred in stable condition to the recovery room for further care. I was present and performed all gunn parts of the procedure. Ms. Mott was the after school program assistant. There were no residents to assist with this case. Juan Luis Boyce MD, PhD, FACS Surgeon: Vipul Boyce MD Anesthesia: GETA, local and other (TAP block) Was an Income Auditor used for this Procedure?: Yes Income Auditor: Nabila Mott Estimated blood loss (mL): 10 IV fluids (mL): 3,000 Urine output (mL): 0 (No Gonzáles to record) Pathology: other (1) gastric biopsy, 2) stomach) Condition: stable Disposition: PACU
--- NOTE | 2021-09-06 14:07 | P.PNGS_ITS ---
Subjective Subjective Date of Service: 09/07/21 Interval history: Patient has mild incisional pain, but was able to ambulate and use the incentive spirometer. She is tolerating phase 1 bariatric diet Physical Exam Vital Signs: Vital Signs: Last Vital Signs Temp 98.5 F 09/06/21 13:56 Pulse 71 09/06/21 14:01 Resp 12 09/06/21 14:01 BP 135/79 09/06/21 14:01 Pulse Ox 100 09/06/21 14:01 BMI result Body Mass Index 37.6 GI: Inspection: Yes normal to inspection, Yes incision (clean, dry and intact) and Yes obesity Extrem: Right lower extremity: normal to inspection (no calf tenderness) Left lower extremity: normal to inspection (no calf tenderness) Objective Data Active Medications Albuterol Sulfate (Albuterol Sulfate (0.083%) 2.5 Mg/3 Ml Vial.Neb) 2.5 mg INHALE ONCE PRN PRN Reason: Shortness of Breath/Wheezing Albuterol Sulfate (Albuterol Sulfate (0.083%) 2.5 Mg/3 Ml Vial.Neb) 2.5 mg INHALE ONCE PRN PRN Reason: Wheezing Hydromorphone HCl (Hydromorphone Hcl 0.5 Mg/0.5 Ml Syringe) 0.25 mg IVPUSH Q5M PRN; Protocol PRN Reason: Pain, Severe (Pain Scale 7-10) Lactated Ringer's (Lr) 1,000 mls @ 100 mls/hr IVCONT .Q10H ANIYAH Last Admin: 09/06/21 09:24 Dose: 100 mls/hr Documented by: ISA Ondansetron HCl (Ondansetron Hcl 4 Mg/2 Ml Vial) 4 mg IVPUSH ONCE PRN PRN Reason: Nausea and Vomiting Labs CBC & Chem 7: 09/07/21 05:34 09/07/21 05:34 Labs: Laboratory Results - last 24 hr 09/06/21 09/06/21 08:40 09:03 POC Glucose 78 COVID-19 (FILOMENA) Negative COVID-19 Clin Com See Note Procedures Date of Service Date of Service: 09/07/21 Progress Note: A&P Assessment and plan (1) S/P laparoscopic sleeve gastrectomy: Status: Acute Assessment and Plan: s/p laparoscopic sleeve gastrectomy, lysis of adhesions repair of diaphragmatic hernia, and gastropexy Doing well Check am labs. If OK, will discharge home? (2) S/P repair of paraesophageal hernia: Status: Acute (3) Paraesophageal hernia: Status: Acute (4) Gastric polyps: Status: Acute (5) Intra-abdominal adhesions: Status: Acute (6) Obesity: Status: Acute (7) BMI 38.0-38.9,adult: Status: Acute (8) Acid reflux: Status: Acute (9) Insomnia: Status: Acute (10) Bipolar 1 disorder: Status: Acute (11) Asthma: Status: Acute (12) Hyperlipidemia: Status: Acute (13) Sleep apnea with use of continuous positive airway pressure (CPAP): Status: Acute (14) Type 2 diabetes mellitus: Status: Acute (15) Steatosis, liver: Status: Acute Fall Risk Details Current Medications: Current Medications Albuterol Sulfate (Albuterol Sulfate (0.083%) 2.5 Mg/3 Ml Vial.Neb) 2.5 mg INHALE ONCE PRN PRN Reason: Shortness of Breath/Wheezing Albuterol Sulfate (Albuterol Sulfate (0.083%) 2.5 Mg/3 Ml Vial.Neb) 2.5 mg INHA LE ONCE PRN PRN Reason: Wheezing Hydromorphone HCl (Hydromorphone Hcl 0.5 Mg/0.5 Ml Syringe) 0.25 mg IVPUSH Q5M PRN; Protocol PRN Reason: Pain, Severe (Pain Scale 7-10) Lactated Ringer's (Lr) 1,000 mls @ 100 mls/hr IVCONT .Q10H ANIYAH Last Admin: 09/06/21 09:24 Dose: 100 mls/hr Documented by: Ondansetron HCl (Ondansetron Hcl 4 Mg/2 Ml Vial) 4 mg IVPUSH ONCE PRN PRN Reason: Nausea and Vomiting Time Spent With Patient Time: Total time spent is greater than 50% in coordination of care (as documented) at patient's floor/unit and/or counseling patient: Time with patient: less than 15 minutes Quality Stroke Does the patient have a stroke diagnosis?: No VTE Prior VTE?: No VTE Risk Level:: Surgical - moderate VTE Device Contraindication: N/A - Device Ordered VTE Drug Contraindication: Treatment Not Indicated
--- NOTE | 2021-09-06 14:08 | P.DS_ITS ---
DS: Providers Provider Date of Service: 09/07/21 Primary care physician: Aniya Hillman MD DS: Summary Hospital Course Hospital Course: ADMITTING DIAGNOSIS: morbid obesity, DM, hyperlipidemia, [place] on CPAP, inspmnia, anxiety , depresseion, GERD, paraesophageal hernia DISCHARGE DIAGNOSIS: same, s/p laparoscopic sleeve gastrectomy and repair diaphragmatic hernia PAST SURGICAL HISTORY: appendectomy, BTL PROCEDURE: upper endoscopy, laparoscopic sleeve gastrectomy and repair of diaphragmatic hernia hernia, EGD with gastric biopsies DISCHARGE SUMMARY: History of Present Illness: The patient is a 55 year-old woman with a BMI of 41.9 kg/m2 and associated co- morbidities as described above. The patient had extensive work-up,lost 21.6 lbs preoperatively and was electively scheduled for laparoscopic, possible open sleeve gastrectomy and gastropexy. Risks and complications of the surgery were discussed with the patient in advance, particularly the possibility of , pulmonary embolism, anastomotic leak, bleeding, bowel injury, GERD, cardiac, renal or pulmonary complications. The patient understood all the risks and was in agreement with the surgical plan. Hospital Course: The patient underwent an uneventful laparoscopic sleeve gastrectomy with gastropexy and repair of diaphragmatic hernia on the day of admission. Postoperatively, the patient was transferred to the surgical floor. The patient received IV Acetaminophen and IV dilaudid for pain control. Patient was started on bariatric phase 1 diet POD #0. On postoperative day one, the patient was feeling well without nausea, vomiting, fevers, or tachycardia. The patient had some mild incisional pain and the abdomen was soft. On the morning of postoperative day one, the patient was continued on 1 ounce of water or ice every half hour. During the day, the patient did fairly well, having some incisional pain, but able to ambulate adequately and to tolerate liquids well. Since the patient is doing well, we decided that the patient was ready to be discharged. The patient was given instructions to follow-up with me next week and to call my office for any fever over 101, persistent abdominal pain, nausea, vomiting, GERD, symptoms of DVT such as calf tenderness, or leg swelling, or pulmonary embolism such as chest pain or shortness of breath. The patient was also instructed to drink 40-60 ounces of liquids per day using the 1-ounce cups. The patient had been given prescriptions for Tylenol for pain, Zofran prn for nausea, and pantoprazole and carafate previously. The patient was encouraged to ambulate and use the incentive spirometer. The patient was allowed to shower, but no baths, and encouraged to stay active at home. All of these instructions were given to the patient personally. All questions were answered and the patient understood all instructions, the instructions were also given to the patient in print. Time Spent with Patient Time attestation: Total time spent providing and/or coordinating discharge services: Discharge coordination time: Less than 30 minutes Quality: Stroke Does the patient have a stroke diagnosis?: No Physical Exam Vital Signs: Vital Signs: Last Vital Signs Temp 98.5 F 09/06/21 13:56 Pulse 69 09/06/21 14:06 Resp 16 09/06/21 14:06 BP 143/75 H 09/06/21 14:06 Pulse Ox 100 09/06/21 14:06 BMI result Body Mass Index 37.6 DS: Data Data Completed and Pending Pending studies at discharge: Pending at discharge 09/06/21 11:26 Surgical [PTH] Routine 09/06/21 13:12 Surgical [PTH] Routine Labs on day of discharge: Laboratory Results - last 24 hr 09/06/21 09/06/21 08:40 09:03 POC Glucose 78 COVID-19 (FILOMENA) Negative COVID-19 Clin Com See Note Discharge Plan Discharge Patient Disposition: Home, Self-Care Discharge Diagnosis: s/p sleeve gastrectomy and hiatal hernia repair Referrals: Aniya Diop MD [Primary Care Provider] - 1 Week Discharge Medications: Continued simvastatin 40 mg tablet 40 mg PO BEDTIME Qty: 90 RF: 0 pantoprazole 40 mg tablet,delayed release (DR/EC) 40 mg PO DAILY Qty: 90 RF: 0 (DME) FreeStyle Test Strip See Rx Instructions .Route Qty: 50 RF: 11 (DME) lancets [FreeStyle Lancets] 28 gauge misc See Rx Instructions .Route Qty: 100 RF: 11 albuterol sulfate 90 mcg/actuation HFA aerosol inhaler 2 puff inhalation Q6H PRN (Reason: Shortness Of Breath Or Wheezing) RF: 0 clonazepam 1 mg tablet 1 mg PO BID RF: 0 eszopiclone 3 mg tablet 3 mg PO BEDTIME RF: 0 sucralfate 100 mg/mL suspension 10 ml PO BID Qty: 400 RF: 2 ondansetron HCl [Zofran] 4 mg tablet 4 mg PO Q12H Qty: 20 RF: 0 Held hydroxyzine HCl 50 mg tablet 25 mg PO BEDTIME RF: 0 Hold Instructions: Resume on 09/10/21. Discontinued metformin 500 mg tablet 500 mg PO DAILY 90 Days Qty: 90 RF: 1 cyclobenzaprine 5 mg tablet 5 mg PO TID PRNRF: 0 Discharge Orders: Discharge Order (Routine); Ordered 09/07/21 Ordered By: Vipul Boyce Diet: other Activity on Discharge: No heavy lifting Stand Alone Forms: Patient Portal Discharge page Care Plan Goals: weight loss Health Concerns: morbid obesity Plan of Treatment: No tub baths, sex or returning to work until discussed at first post op appointment. No exercise, alcohol, tobacco or illegal drug use. Continue to use incentive spirometer hourly while awake. Walk in home for 5- 10 minutes every 2 hours during the first week. Continue phase 1 diet today and start phase 2 diet tomorrow morning. Follow all instructions in the bariatric handbook and call with any questions. 1. Please call your doctor or come back to the emergency room should any new symptoms arise. 2. You will receive a courtesy call from [facility] 24-48 hours after discharge. 3. Activity: abstain from alcohol, practice limited stair climbing, no bending, no driving, no exercise, no illicit substances, no lifting, no sex, no tub bath, no work. 4. Diet: continue as discussed with Dr. Boyce. 5. Dressing Change/Wound Care: Do not change or remove surgical dressings unless they are wet or soiled. 6. Call your doctor if: - Your temperature exceeds 101.5 F - You experience excessive pain or swelling - You have an unexpected reaction to medication - You have excessive bleeding - You experience continued vomiting/nausea - Your incision begins to separate - Your incision shows signs of infection such as increased redness, swelling, excessive pain, heat, or drainage (light blood or clear fluid is normal) 7. General instructions: No lifting greater than 5 lbs for the next 4 weeks[address] driving within 24 hours of taking narcotic pain medications. If you do not move your bowels in the next 2 days, please take milk of magnesia over the counter. Please follow the post op diet and do not advance your diet until you are seen in the office in about 2 weeks. Please walk around your home every hour or two to prevent blood clots from forming in your legs. You do not need to wake from sleeping to walk. Please sleep in a bed or couch to prevent kinking at the hips and knees. Please take your incentive spirometer (your lung histology aide) home with you and use it for the next few days to prevent pneumonias. You may shower, no hot tubs, baths or swimming pools. Please call the office with any questions or concerns such as increasing abdominal pain, fever, chills, shortness of breath, chest pain, leg pain or swelling, or redness or drainage from your incisions. Do not hesitate to contact the office with any questions at . The patient's medical history has been reviewed and they are considered low risk for post op DVT and therefore DVT prophylaxis is not considered necessary. Travel after surgery was reviewed. The patient has not disclosed any travel plans during the first 30 days after surgery and they have been advised that within the first 30 days after surgery any bus, plane, train or car travel over 2 hours in duration is contraindicated due to the possibility of developing blood clots from immobility. Any travel, needs to include periods of ambulation of 10 minutes in duration every 2 hours. The patient was instructed to discuss any plans for travel during this period with their bariatric surgeon. Assessment: stable, s/p sleeve gastrectomy
[2021-09-06] MEDS: HYDROmorphone HCl 0.5 MG/0.5 ML SYRINGE 0.25 MG IVPUSH ×4 (14:23→14:59)
[2021-09-06 14:30] LABS: Hematocrit 35.2 % (37.0-47.0); Hemoglobin 10.9 g/dl (12.0-16.0)
[2021-09-06] MEDS: Famotidine/PF 20 MG/2 ML VIAL IVPUSH ×2 (14:50→20:42)
[2021-09-06 14:51] LABS: Anion Gap 16 (12-20); Blood Urea Nitrogen 14 mg/dL (9-16); Carbon Dioxide 23 mmol/L (22-29); Chloride 106 mmol/L (96-108); Creatinine Clr Calc Pharmacy 76.8; Estimated Glomerular Filt Rate > 60; Glucose Random 123 mg/dL (60-115); Potassium 4.3 mmol/L (3.3-5.1); Sodium 141 mmol/L (135-145)
[2021-09-06 16:25] LABS: Glucose, Whole Blood 130 mg/dL (60-115)
[2021-09-06] MEDS: 0.9 % Sodium Chloride Flush 3 ML SYRINGE IVFLUSH ×2 (19:16→20:42)
[2021-09-06] MEDS: ondansetron HCL 4 MG/2 ML VIAL IVPUSH (19:17)
[2021-09-06 20:22] LABS: Glucose, Whole Blood 143 mg/dL (60-115)
[2021-09-06] MEDS: clonazePAM 1 MG TABLET PO (20:42)
[2021-09-07] MEDS: Lactated Ringers 1,000 ML 100 ML IVCONT ×2 (00:28→10:43)
[2021-09-07] MEDS: ondansetron HCL 4 MG/2 ML VIAL IVPUSH ×2 (02:50→10:59)
[2021-09-07 03:47] VITALS: BP 136/69; PULSE 73; RESP 18; TEMP 36.2; O2SAT 96
[2021-09-07 05:50] LABS: Hematocrit 36.2 % (37.0-47.0); Hemoglobin 11.1 g/dl (12.0-16.0); Imm Gran Abs Auto 0.03 X10*3/uL (0.00-0.03); Imm Gran Pct Auto 0.4 % (0.0-0.4); Lymphocytes Absolute Auto 0.7 X10*3/uL (1.2-4.9); Lymphocytes Percent Auto 9.1 % (20-40); MANUAL DIFF FLAG NO; Mean Corpuscular HGB Conc 30.7 g/dl (31.0-35.0); Mean Corpuscular Hemoglobin 27.2 pg (27.0-33.0); Mean Corpuscular Volume 88.7 fL (80.0-98.0); Mean Platelet Volume 11.1 fL (9.4-12.3); Monocytes Absolute Auto 0.5 X10*3/uL (0.1-1.2); Neutrophils Absolute Auto 6.5 x10*3/uL (2.0-8.3); Neutrophils Percent Auto 84.5 % (45-73); Platelet Count 328 X10*3/uL (160-400); Red Blood Count 4.08 X10*6/uL (4.20-5.50); Red Cell Distribution Width 13.9 % (11.0-16.0); White Blood Count 7.7 X10*3/uL (4.8-10.8)
[2021-09-07] MEDS: HYDROmorphone HCl 0.5 MG/0.5 ML SYRINGE 0.25 MG IVPUSH (05:51)
[2021-09-07 06:42] LABS: Anion Gap 16 (12-20); Blood Urea Nitrogen 9 mg/dL (9-16); Calcium 9.5 mg/dL (8.4-10.2); Carbon Dioxide 23 mmol/L (22-29); Chloride 107 mmol/L (96-108); Creatinine Clr Calc Pharmacy 80.5; Estimated Glomerular Filt Rate > 60; Glucose Random 114 mg/dL (60-115); Potassium 4.6 mmol/L (3.3-5.1); Sodium 141 mmol/L (135-145)
[2021-09-07 07:00] VITALS: BP 132/64; PULSE 72; RESP 18; TEMP 36.1; O2SAT 98
[2021-09-07 07:18] LABS: Glucose, Whole Blood 97 mg/dL (60-115)
[2021-09-07] MEDS: clonazePAM 1 MG TABLET PO (08:33)
[2021-09-07] MEDS: Famotidine/PF 20 MG/2 ML VIAL IVPUSH (08:34)
[2021-09-07 11:00] VITALS: BP 134/69; PULSE 64; RESP 18; TEMP 36.3; O2SAT 97
[2021-09-07 11:32] LABS: Glucose, Whole Blood 91 mg/dL (60-115)
--- NOTE | 2021-09-07 12:04 | MHC.CM.PN ---
NURSE ACCOUNTANT TAX NOTE ELECTRONIC MEDICAL RECORD REVIEWED ALONG WITH CASE DISCUSSED WITH STAFF NURSE , MET WITH PATIENT [place] [facility] [place] [facility] S/P BARIATRIC SURGOICAL PATIENT , ON 09/06/21 . SHE WILL BE DISCHARGED HOME TYAMARILYSY , NO SERVICES. PATIENT IS DIABLED SEC, TO MENTAL HEALTH DIAGNOSIS , SHE IS FOLLOWED BY THERAPIST AND PSYCH THROUGH [facility], SHE DOES NOT WORK , SHE IS INDEPENDENT WIN ALL ADLS AND MOBILIY WITH OUT ANY DEVICES , SHE HAS A CPAP MACHINE DROM RELIABLE . SHE HAS NO SOFTLINES SUPERVISOR OR VNA SERVICES IN THE HOME DISCHARGE PLAN HOME NO SERVICES PCP DR DAVID FRAZIER TRANSPORT[facility] FAMILY EDUCATED ABOUT THE IMPORTANCE OF HAVING A HCP , DECLINED TO COMPLETE ONE AT THIS TIME
--- NOTE | 2021-09-07 15:38 | HO.POSTANES ---
Post Anesthesia Evaluation Post Anesthesia Evaluation Vital Signs: Vital Signs Temp Pulse Resp BP Pulse Ox 09/07/21 11:00 97.4 F 64 18 134/69 97 09/07/21 07:00 97.0 F 72 18 132/64 98 09/07/21 03:47 97.1 F 73 18 136/69 96 Anesthesia: General Endotracheal-GETA Mental Status: Awake Pain Control: Satisfactory Nausea/Vomiting: None Hydration: Adequate Anesthesia-Related Issues: No Anes. Related Issues
== END 2021-09-07 15:15 | disposition home or self-care (01) | DRG 620 ==
PROVIDERS: Physician Assistant; Admitting Provider Surgery; PCP Internal Medicine; Visit Provider Surgery
PROC: 0DB64Z3 Excision of Stomach, Percutaneous Endoscopic Approach, Vertical (ICD-10-PCS; CPT 43845; principal; 2021-09-06 10:10)
DX: E66.01 Morbid (severe) obesity due to excess calories (principal); K44.0 Diaphragmatic hernia with obstruction, without gangrene; Z20.822 Contact with and (suspected) exposure to COVID-19; Z88.0 Allergy status to penicillin; Z68.38 Body mass index [BMI] 38.0-38.9, adult; E11.9 Type 2 diabetes mellitus without complications; G47.30 Sleep apnea, unspecified; Z99.89 Dependence on other enabling machines and devices; K66.0 Peritoneal adhesions (postprocedural) (postinfection); K31.7 Polyp of stomach and duodenum; F31.9 Bipolar disorder, unspecified; J45.909 Unspecified asthma, uncomplicated; M25.569 Pain in unspecified knee; K76.0 Fatty (change of) liver, not elsewhere classified; G47.00 Insomnia, unspecified; Z79.899 Other long term (current) drug therapy
CPT/HCPCS: 36415; 80048; 80053; 80061; 82947; 83036; 83525; 84443; 85014; 85018; 85025; 85610; 85730; 86140; 86850; 86900; 86901; 87635; 88305; 88307; 88331; 88342; 99024; A4649; J0131; J1100; J1170; J1956; J2250; J2370; J2405; J3010

== ENCOUNTER → 2021-09-14 07:30 | Outpatient (BNVA) | payer OTHER, SELFPAY | PROVIDERS: PCP Internal Medicine; Referring Provider Internal Medicine; Visit Provider Surgery | DX: E66.9 Obesity, unspecified (principal); Z68.31 Body mass index [BMI] 31.0-31.9, adult; Z98.84 Bariatric surgery status | CPT/HCPCS: 99212 ==

== ENCOUNTER → 2021-10-19 07:58 | Outpatient (BNVA) | payer OTHER, SELFPAY | PROVIDERS: PCP Internal Medicine; Visit Provider Surgery | DX: E66.9 Obesity, unspecified (principal); Z68.32 Body mass index [BMI] 32.0-32.9, adult | CPT/HCPCS: 99212 ==

== ENCOUNTER → 2021-10-29 08:04 | Outpatient (BNVA) | payer OTHER, SELFPAY | PROVIDERS: PCP Internal Medicine; Visit Provider Physician Assistant | DX: K59.00 Constipation, unspecified (principal); Z98.84 Bariatric surgery status; Z98.890 Other specified postprocedural states; Z87.19 Personal history of other diseases of the digestive system | CPT/HCPCS: 99212 ==

== ENCOUNTER 2021-11-23 | Outpatient (REF) | payer OTHER, SELFPAY | END 2021-11-23 00:01 | LOC: CF | PROVIDERS: PCP Internal Medicine; Visit Provider Surgery | DX: E66.01 Morbid (severe) obesity due to excess calories (principal); E11.9 Type 2 diabetes mellitus without complications; R13.10 Dysphagia, unspecified; Z68.31 Body mass index [BMI] 31.0-31.9, adult; Z98.84 Bariatric surgery status; Z87.19 Personal history of other diseases of the digestive system; Z88.1 Allergy status to other antibiotic agents; Z88.0 Allergy status to penicillin; Z79.899 Other long term (current) drug therapy | CPT/HCPCS: 99212 ==

== ENCOUNTER 2022-01-30 10:15 | Outpatient (REF) | payer OTHER, SELFPAY ==
[2022-01-30 10:26] LABS: MANUAL DIFF FLAG NO
[2022-01-30 10:51] LABS: Basophils Percent Auto 0.6 % (0-2); Eosinophils Absolute Auto 0.2 X10*3/uL (0.0-0.4); Eosinophils Percent Auto 3.8 % (0-4); Hematocrit 35.7 % (37.0-47.0); Hemoglobin 11.2 g/dl (12.0-16.0); Imm Gran Abs Auto 0.01 X10*3/uL (0.00-0.03); Imm Gran Pct Auto 0.2 % (0.0-0.4); Lymphocytes Absolute Auto 1.8 X10*3/uL (1.2-4.9); Lymphocytes Percent Auto 33.6 % (20-40); Mean Corpuscular HGB Conc 31.4 g/dl (31.0-35.0); Mean Corpuscular Hemoglobin 28.6 pg (27.0-33.0); Mean Corpuscular Volume 91.1 fL (80.0-98.0); Mean Platelet Volume 10.8 fL (9.4-12.3); Monocytes Absolute Auto 0.4 X10*3/uL (0.1-1.2); Monocytes Percent Auto 8.4 % (2-11); Neutrophils Absolute Auto 2.8 x10*3/uL (2.0-8.3); Neutrophils Percent Auto 53.4 % (45-73); Platelet Count 310 X10*3/uL (160-400); Red Blood Count 3.92 X10*6/uL (4.20-5.50); Red Cell Distribution Width 13.9 % (11.0-16.0); White Blood Count 5.2 X10*3/uL (4.8-10.8)
[2022-01-30 11:14] LABS: Creatinine Urine 137.39 mg/dL; Microalbum/Creatinine Ratio Ur 11.6 ug/mg cr
[2022-01-30 11:16] LABS: Alanine Aminotransferase 14 U/L (0-31); Albumin Level 4.1 g/dL (3.5-5.0); Alkaline Phosphatase 96 U/L (39-117); Anion Gap 11 (12-20); Aspartate Amino Transferase 20 U/L (5-31); Bilirubin Total 0.6 mg/dL (0.0-1.0); Blood Urea Nitrogen 14 mg/dL (9-16); Calcium 9.8 mg/dL (8.4-10.2); Carbon Dioxide 30 mmol/L (22-29); Chloride 105 mmol/L (96-108); Cholesterol 151 mg/dL; Estimated Glomerular Filt Rate > 60; Glucose Fasting 101 mg/dL (60-99); HDL Cholesterol 55 mg/dL; LDL Cholesterol Calculated 82 mg/dl; Potassium 4.4 mmol/L (3.3-5.1); Sodium 142 mmol/L (135-145); Total Protein 6.9 g/dL (6.5-8.0); Triglycerides 72 mg/dL
[2022-02-05 15:12] LABS: Vitamin D 25-OH, D2 <4 ng/mL; Vitamin D 25-OH, D3 34 ng/mL; Vitamin D 25-OH, Total 34 ng/mL (30-100)
== END 2022-01-30 10:16 | disposition home or self-care (01) ==
LOC: HO.LAB 10:15
PROVIDERS: PCP Internal Medicine; Visit Provider Internal Medicine
DX: E55.9 Vitamin D deficiency, unspecified (principal); D64.9 Anemia, unspecified; E11.9 Type 2 diabetes mellitus without complications; E78.5 Hyperlipidemia, unspecified
CPT/HCPCS: 36415; 80053; 80061; 82043; 82306; 85025

== ENCOUNTER → 2022-01-31 08:16 | Outpatient (BNVA) | payer OTHER, SELFPAY | PROVIDERS: PCP Internal Medicine; Visit Provider Physician Assistant | DX: Z13.89 Encounter for screening for other disorder (principal) ==

== ENCOUNTER 2023-03-05 10:25 | Outpatient (REF) | payer OTHER, SELFPAY ==
[2023-03-05 12:10] LABS: Alanine Aminotransferase 22 U/L (0-31); Albumin Level 4.1 g/dL (3.5-5.0); Alkaline Phosphatase 94 U/L (39-117); Anion Gap 9 (12-20); Aspartate Amino Transferase 25 U/L (5-31); Bilirubin Total 0.8 mg/dL (0.0-1.0); Blood Urea Nitrogen 17 mg/dL (9-16); Calcium 9.7 mg/dL (8.4-10.2); Carbon Dioxide 29 mmol/L (22-29); Chloride 109 mmol/L (96-108); Cholesterol 158 mg/dL; Estimated Glomerular Filt Rate > 60; Glucose Fasting 98 mg/dL (60-99); HDL Cholesterol 62 mg/dL; LDL Cholesterol Calculated 84 mg/dl; Potassium 4.3 mmol/L (3.3-5.1); Sodium 143 mmol/L (135-145); Total Protein 6.8 g/dL (6.5-8.0); Triglycerides 61 mg/dL
[2023-03-05 12:20] LABS: Creatinine Urine 150.71 mg/dL; Microalbum/Creatinine Ratio Ur 17.2 ug/mg cr
[2023-03-05 12:26] LABS: Vitamin D 25-OH Total 31.2 ng/mL (>30)
== END 2023-03-05 10:26 | disposition home or self-care (01) ==
LOC: HO.LAB 10:25
PROVIDERS: PCP Internal Medicine; Visit Provider Internal Medicine
DX: E11.9 Type 2 diabetes mellitus without complications (principal); E55.9 Vitamin D deficiency, unspecified; E78.5 Hyperlipidemia, unspecified
CPT/HCPCS: 36415; 80053; 80061; 82043; 82306

== ENCOUNTER 2023-07-04 14:03 | Outpatient (REF) | payer OTHER, SELFPAY | END 2023-07-04 14:04 | disposition home or self-care (01) | LOC: HO.LAB 14:03 | PROVIDERS: PCP Internal Medicine; Visit Provider Internal Medicine | DX: E78.5 Hyperlipidemia, unspecified (principal); E55.9 Vitamin D deficiency, unspecified; E11.9 Type 2 diabetes mellitus without complications | CPT/HCPCS: 36415; 80053; 80061; 82043; 82306; 82570 ==

== ENCOUNTER 2023-07-14 12:54 | Outpatient (AMB) | payer OTHER, SELFPAY ==
--- NOTE | 2023-07-14 13:00 | MHC.PC.OV ---
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 Required: No Accompanied by: Self / Same As Patient Allergies penicillin V Allergy (Intermediate, Verified 07/14/23 13:14) Hives Medication List - Last Reconciled 07/14/23 by Aniya Hillman MD atorvastatin 40 mg PO BEDTIME 90 days blood sugar diagnostic (FreeStyle Test strips) Use 1 test strip once a day clonazepam 1 mg PO BID cyclobenzaprine 10 mg PO BID PRN eszopiclone 3 mg PO BEDTIME fluoxetine 20 mg PO DAILY fluoxetine 0 mg PO hydroxyzine HCl 25 mg PO BEDTIME lactulose 10 grams (15 mL) PO BEDTIME PRN 90 days lancets (FreeStyle Lancets) USE 1 LANCET TO TEST BLOOD SUGAR ONCE DAILY metformin 500 mg PO DAILY 90 days pantoprazole 40 mg PO DAILY polyethylene glycol 3350 17 grams PO DAILY PRN 30 days prazosin 5 mg PO BEDTIME simethicone (Gas Relief (simethicone)) 250 mg (2 x 125 mg) PO BID PRN 30 days [STOOL SOFTENER 100MG CAPSULES 1 cap PO DAILY] Ventolin HFA 90 mcg/actuation (albuterol sulfate) 2 puffs PO Q6H PRN NS Tobacco use date assessed: 11/11/22 Dental Screening Dental Screen Date: 07/14/23 Did you have a dental visit in the last 12 months?: Yes Did you have a dental problem in the last 6 months where you did not have access to dental care?: No Was dental information given to patient?: Patient has dentist HPI HPI Comments History of Present Illness Details This is a 57-year-old female with moderate recurrent major depression and diabetes mellitus type 2 that comes for her physical exam. Depression has been stable with fluoxetine and this is follow by Psychiatry. A1c within goal. Last mammogram was 2022 and was normal. Last colonoscopy was at 49 years all as per patient was normal. Last Pap smear was at [facility] at the beginning of 2022 and was normal as per patient. No chest pain or shortness of breath. [facility] Medical History (Updated 07/14/23 @ 13:47 by Aniya Hillman MD) Moderate recurrent major depression Macromastia History of gastrectomy Steatosis, liver Presence of dental bridge Hx of head injury Migraines Hx of cardiac murmur Patient is Rastafari PTSD (post-traumatic stress disorder) Insomnia Bipolar 1 disorder Hyperlipidemia Sleep apnea with use of continuous positive airway pressure (CPAP) Plantar fasciitis of right foot Hypovitaminosis D Pure hypercholesterolemia Moderately severe recurrent major depression Morbid obesity Change in bowel habit All medications reviewed Anxiety and depression High cholesterol Gastric ulcer Carpal tunnel syndrome De Quervain's disease (radial styloid tenosynovitis) Asthma Type 2 diabetes mellitus Surgical History History of weight loss surgery Hx of tubal ligation History of appendectomy (~2013) Family History Mother Alzheimers disease Father Alzheimers disease Diabetes Mother Alzheimers disease Osteoarthritis Rheumatoid arthritis Sister Mental disability Sister Cirrhosis Social History Household Members: Spouse Housing: House Are you a primary skin care consultant to a significant other at home: No Do you presently have visiting nurse or other home services: No Alcohol intake: never Patient Tobacco Use Status: Never used Tobacco e-Cigarette/Vaping Use: Never Used Second Hand Smoke Exposure: No service: No Current occupational status: disabled Current occupation: right handed Cognitive needs: No Hearing needs: No Vision needs: No Questionnaire Thrive Questionnaire Date Thrive assessed: 11/11/22 OCTAVIO-7 AMB Questionnaire OCTAVIO-7 Date OCTAVIO - 7 assessed: 11/11/22 Source: Developed by Drs. Maynor Grady, Catherine Ricci, Srinivasan Sam and colleagues, with an educational lavell from [employer]. Review of Systems Const All systems reviewed & are unremarkable except as noted in HPI and below Eyes Reports no additional complaints, Denies change in vision and Denies other visual disturbances Card Denies chest pain at rest, Denies chest pain with activity, Denies edema, Denies irregular heart rhythm, Denies claudication, Denies dyspnea, Denies dyspnea on exertion, Denies orthopnea, Denies paroxysmal nocturnal dyspnea and Denies slow heart rate Resp Denies cough, Denies dyspnea and Denies dyspnea on exertion GI Denies abdominal pain, Denies change in bowel habits, Denies excessive flatus, Denies nausea and Denies vomiting Denies urinary incontinence, Denies urinary hesitancy and Denies urinary urgency Musc Denies abnormal gait, Denies atrophy, Denies deformity and Denies limited range of motion Skin/Breast Denies bleeding lesions, Denies changing lesions and Denies rash Neuro Denies abnormal gait and Denies lack of coordination Physical exam (Primary Care) Vital Signs: Last Vital Signs Pulse 58 07/14/23 13:04 BP 136/80 07/14/23 13:04 Pulse Ox 97 07/14/23 13:04 Oxygen Delivery Method Room Air 07/14/23 13:04 BMI result Body Mass Index 32.9 Tobacco/Smoking Status: Tobacco use Status Tobacco use date assessed 11/11/22 07/14/23 13:02 Patient Tobacco Use Status Never used Tobacco 07/14/23 13:02 e-Cigarette/Vaping Use Never Used 07/14/23 13:02 Thrive Assessment: Date of Thrive Assessment Date Thrive assessed 11/11/22 07/14/23 13:02 Const Orientation/consciousness: patient oriented x3 HENMT Head: Yes normal to inspection, Yes normocephalic and Yes atraumatic Ears: external ears normal Eyes General: appearance normal, both eyes and all related structures Eyelids: Yes eyelids normal Conjunctivae: conjunctivae normal Neck Neck: Yes normal visual inspection and Yes supple Resp Effort & Inspection: normal respiratory effort Auscultation: clear to auscultation bilaterally Cardio Jugular venous distension: no JVD Rate: regular rate Rhythm: regular rhythm Heart sounds: S1 normal heart sound present and S2 normal heart sound present GI Inspection: Yes normal to inspection Palpation (GI): Soft to palpation and nontender Auscultation: normal bowel sounds Skin General skin exam: no rashes or lesions noted Neuro General: patient oriented x3 and no focal motor deficits Extrem General: Yes full ROM Psych Appearance: grossly normal Office Procedures Flu Questionnaire Does the patient have a severe egg allergy?: No Results AMB Hemoglobin A1c AMB Hemoglobin A1c 6.4 % Last Edit by INDY Mandel on 07/14/23 13:13 Immunizations flu vacc [id number] 6mos up(PF) 60 mcg(15 mcgx4)/0.5 mL IM syringe Performing Provider: Aniya Hillman MD [place] [facility] [facility] Documented (not given) by: INDY Mandel on 07/14/23 13:06 Reason Not Given: Patient Refused Results Reviewed Results Reviewed: Laboratory Last Values Hgb A1c (Clinic) 6.4 % (4.0-6.0) H 07/14/23 13:00 Assessment and Plan Assessment & Plan (1) Physical exam: Code(s): Z00.00 - Encounter for general adult medical examination without abnormal findings Plan: Repeat in a year. (2) Moderate recurrent major depression: Code(s): F33.1 - Major depressive disorder, recurrent, moderate Plan: Continue fluoxetine. Follow-up with psychiatry. (3) Type 2 diabetes mellitus: Code(s): E11.9 - Type 2 diabetes mellitus without complications Qualifiers: Diabetes mellitus retirement insulin use: without retirement use Diabetes mellitus complication status: without complication Qualified Code(s): E11.9 - Type 2 diabetes mellitus without complications Plan: Continue metformin. A1c goal is equal or less than 7%. Orders: Orders AMB Hemoglobin A1c Today E11.9 - Type 2 diabetes mellitus without complications Influenza [id number] Immunization Today Z23 - Encounter for immunization IRON PROFILE 4 Months D64.9 - Anemia, unspecified Lipid Panel 4 Months E78.5 - Hyperlipidemia, unspecified Vitamin D 25-OH Total 4 Months E55.9 - Vitamin D deficiency, unspecified Complete Blood Count Auto Diff 4 Months D64.9 - Anemia, unspecified Microalbumin, Random (w Creat) 4 Months E11.9 - Type 2 diabetes mellitus without complications Comprehensive [place]. Panel Fast 4 Months E11.9 - Type 2 diabetes mellitus without complications CA echo transthoracic complete Today R01.1 - Cardiac murmur, unspecified Coding Level of Care Code Est Pt Prev Care 40-64y(58296) Diagnoses Physical exam Z00.00 Moderate recurrent major depression F33.1 Type 2 diabetes mellitus without complication, without long-term current use of insulin E11.9 Diabetes mellitus retirement insulin use: without dedicated intermodal truck driver use Diabetes mellitus complication status: without complication Time Spent (min) 32
[2023-07-14 13:04] VITALS: BP 136/80; PULSE 58; O2SAT 97; BMI 32.9
== END 2023-07-14 13:24 | disposition home or self-care (01) ==
PROVIDERS: Visit Provider Internal Medicine
DX: Z00.00 Encounter for general adult medical examination without abnormal findings (principal); F33.1 Major depressive disorder, recurrent, moderate; E11.9 Type 2 diabetes mellitus without complications
CPT/HCPCS: 83036; 99396

== ENCOUNTER → 2023-09-01 13:35 | Outpatient (REF) | payer OTHER, SELFPAY ==
--- NOTE | 2023-09-01 13:38 | CA_ITS ---
Transthoracic Echocardiogram Patient (Last, First, Middle): Katlin Bonilla, Gender: Female Date of : 1965 Age: 57 Procedure Date: 09/01/2023 Procedure Type: Transthoracic Echocardiogram Location: OP Height: 157.48 cm Weight: 79.38 kg BSA: 1.81 m2 Heart Rate: 50 bpm BP: 145 / 85 mmHg Net[employer] Administrator: ANGELY Referring MD: Aniya Hilmlan MD Symptoms: R01.1 - Cardiac murmur, unspecified Study Quality: Good ECG Rhythm: Bradycardia Conclusions: - The left ventricular systolic function is normal. The calculated ejection fraction is 61% by biplane method. - The basal inferior segment is hypokinetic. - There is mild aortic valve regurgitation. - There is mild dilatation of the ascending aorta measuring 3.90 cm. Findings Left Ventricle Normal left ventricular cavity size. There is mildly increased left ventricular wall thickness. The left ventricular systolic function is normal. The calculated ejection fraction is 61% by biplane method. There is no evidence of regional wall motion abnormalities. Diastolic function is normal for age. LV peak GLS -19.2%. Wall Motion Rest Echo Findings The basal inferior segment is hypokinetic. Right Ventricle Mildly increased right ventricular cavity size. There is normal right ventricular systolic function. Atria Both atria are normal in size. Aortic Valve There is a normal trileaflet aortic valve. There is no aortic valve stenosis. There is mild aortic valve regurgitation. Mitral Valve The mitral valve appears normal. There is no mitral valve regurgitation. There is no mitral valve stenosis. Pulmonic Valve The pulmonic valve is likely normal. Tricuspid Valve Normal tricuspid valve structure. There is mild tricuspid valve regurgitation. There is no evidence of pulmonary hypertension. Great Vessels There is mild dilatation of the ascending aorta measuring 3.90 cm. Venous The inferior vena cava is normal in size and collapses greater than 50% with inspiration. Pericardium/Pleural There is no evidence of pericardial effusion. Prior Study Comparison No prior study available for comparison. Measurements 2D Linear Measurements IVSd: 1.12 0.6-0.9/0.6-1.0 cm LVIDd: 4.16 3.9-5.3/4.2-5.9 cm LVIDd Index: 2.30 2.4-3.2/2.2-3.1 cm/m2 LVIDs: 3.12 2.0-3.6 cm LVPWd: 1.08 0.7-1.1 cm LA Diam: 3.50 2.7-3.8/3.0-4.0 cm LAIDs Index: 1.93 1.5-2.3 cm/m2 LV Mass: 192.68 67-162/88-224 g LV Mass Index: 106.45 43-95/49-115 g/m2 LVOT Diam: 1.80 3.0+(-)1.3 cm 2D Systolic Function EF 4C: 64.70 >55% EF 2C: 58.50 >55% EF BiP: 61.40 >55% Mitral Valve MV Pk E: 0.87 MV PK A: 0.84 MV Decel Time: 198.00 E/A: 1.00 E'Lateral: 9.79 E'Medial: 6.64 E/E' Med: 13.10 E/E' Lat: 8.90 PHT: 58.00 MVA PHT: 3.79 Decel [place]: 4.39 Aortic Valve AoV Pk Dom: 1.59 AoV Mn Dom: 1.12 AoV VTI: 0.39 AoV Pk Grad: 10.00 Aov Mn Grad: 6.00 PAYAL Cont.VTI: 1.71 AI Pk Dom: 4.63 AI [place]: 1.84 LVOT LVOT Pk Dom: 1.04 LVOT Mn Dom: 0.71 LVOT VTI: 0.26 LVOT Pk Grad: 4.00 LVOT Mn Grad: 2.00 LVOT Diam: 1.80 LVOT Area: 2.54 Diastolic Function MV Pk E: 0.87 MV Pk A: 0.84 E/A: 1.00 E'Medial: 6.64 E/E' Med: 13.10 E' Laterial: 9.79 E/E' Lat: 8.90 Right Ventricle TAPSE (mm): 22.20 TVS' Dom: 9.90 Tricuspid Valve TR Pk Dom: 1.95 TR Pk Grad: 15.00 RA Press: 3.00 RVSP: 18.00 Great Vessels Aorta Sinus of Valsalva: 3.80 2.0-3.5 cm Ao Asc: 3.90 2.1-3.4 cm Pulmonary Valve PV Pk Dom: 0.87 Peak PV Grad: 3.00 Updated in Other Vendor System with Status of Final Osvaldo Dick MD electronically signed on 09/02/2023 11:17:55 AM with status of Final
== END ==
LOC: HO.CARD 13:35
PROVIDERS: PCP Internal Medicine; Visit Provider Internal Medicine
DX: R01.1 Cardiac murmur, unspecified (principal)
CPT/HCPCS: 93306; 93356

== ENCOUNTER → 2023-09-01 13:38 | Outpatient (BNV) | payer OTHER, SELFPAY | PROVIDERS: PCP Internal Medicine; Visit Provider Internal Medicine | DX: I35.1 Nonrheumatic aortic (valve) insufficiency (principal); I36.1 Nonrheumatic tricuspid (valve) insufficiency | CPT/HCPCS: 93306 ==

== ENCOUNTER 2023-10-21 17:19 | Outpatient (AMB) | payer OTHER, SELFPAY ==
[2023-10-21 17:28] VITALS: BP 134/86; BMI 33.3
--- NOTE | 2023-10-21 17:28 | A.OFFPC_ITS ---
Vital Signs 10/21/23 17:28 Height 5 ft 2 in Weight 182 lb BMI 33.3 BP 134/86 Blood Pressure Location Lt brachial Position Sitting Intake Visit Reasons: breast Reduction Surgery On 10/30/23 Intake Note: Patient here for breast reduction surgery 10/30/23 Manager It Training Required: No Accompanied by: Self / Same As Patient Allergies penicillin V Allergy (Intermediate, Verified 10/21/23 17:42) Hives Medication List - Last Reconciled 10/21/23 by Aniya Hillman MD atorvastatin 40 mg PO BEDTIME 90 days blood sugar diagnostic (FreeStyle Test strips) Use 1 test strip once a day clonazepam 1 mg PO BID cyclobenzaprine 10 mg PO BID PRN eszopiclone 3 mg PO BEDTIME fluoxetine 20 mg PO DAILY fluoxetine 0 mg PO hydroxyzine HCl 25 mg PO BEDTIME lactulose 10 grams (15 mL) PO BEDTIME PRN 90 days lancets (FreeStyle Lancets) USE 1 LANCET TO TEST BLOOD SUGAR ONCE DAILY metformin 500 mg PO DAILY 90 days pantoprazole 40 mg PO DAILY polyethylene glycol 3350 17 grams PO DAILY PRN 30 days prazosin 5 mg PO BEDTIME simethicone (Gas Relief (simethicone)) 250 mg (2 x 125 mg) PO BID PRN 30 days [STOOL SOFTENER 100MG CAPSULES 1 cap PO DAILY] Ventolin HFA 90 mcg/actuation (albuterol sulfate) 2 puffs PO Q6H PRN NS Tobacco use date assessed: 10/21/23 Dental Screening Dental Screen Date: 10/21/23 Did you have a dental visit in the last 12 months?: Yes Did you have a dental problem in the last 6 months where you did not have access to dental care?: No Was dental information given to patient?: Patient has dentist HPI HPI Comments History of Present Illness Details This is a 57-year-old female with diabetes mellitus type 2, mild asthma, hyperlipidemia and moderate recurrent major depression that comes for preop evaluation for breast reduction surgery scheduled for 10/30/2023. A1c within goal. She use rescue inhaler once a month. Lipid panel will be order. Depression stable with SSRIs and is follow by Psychiatry. She did complain of upper back pain and bra causing a dent in both shoulders due to macromastia. Has 5-7 Mets of ADLs. Denies any chest pain or shortness of breath. Last mammogram was January 2023. Labs and EKG pending for medical clearance. [facility] Medical History (Updated 10/21/23 @ 17:54 by Aniya Hillman MD) Moderate recurrent major depression Macromastia History of gastrectomy Steatosis, liver Presence of dental bridge Hx of head injury Migraines Hx of cardiac murmur Patient is Orthodox PTSD (post-traumatic stress disorder) Insomnia Bipolar 1 disorder Hyperlipidemia Sleep apnea with use of continuous positive airway pressure (CPAP) Plantar fasciitis of right foot Hypovitaminosis D Pure hypercholesterolemia Moderately severe recurrent major depression Morbid obesity Change in bowel habit All medications reviewed Anxiety and depression High cholesterol Gastric ulcer Carpal tunnel syndrome De Quervain's disease (radial styloid tenosynovitis) Asthma Type 2 diabetes mellitus Surgical History History of weight loss surgery Hx of tubal ligation History of appendectomy (~2013) Family History Mother Alzheimers disease Father Alzheimers disease Diabetes Mother Alzheimers disease Osteoarthritis Rheumatoid arthritis Sister Mental disability Sister Cirrhosis Social History Household Members: Spouse Housing: House Are you a primary health care / medical job titles to a significant other at home: No Do you presently have visiting nurse or other home services: No Alcohol intake: never Patient Tobacco Use Status: Never used Tobacco e-Cigarette/Vaping Use: Never Used Second Hand Smoke Exposure: No service: No Current occupational status: disabled Current occupation: right handed Cognitive needs: No Hearing needs: No Vision needs: No Questionnaire PHQ-9 Over the last 2 weeks, how often have you been bothered by any of the following problems? 1. Little interest or pleasure in doing things: several days 2. Feeling down, depressed, or hopeless: several days 3. Trouble falling or staying asleep, or sleeping too much: nearly every day 4. Feeling tired or having little energy: nearly every day 5. Poor appetite or overeating: not at all 6. Feeling bad about yourself - or that you are a failure or have let yourself or your family down: several days 7. Trouble concentrating on things, such as reading the newspaper or watching television: several days 8. Moving or speaking so slowly that other people could have noticed. Or the opposite - being so fidgety or restless that you have been moving around a lot more than usual: several days 9. Thoughts that you would be better off or of hurting yourself in some way: not at all Total score: 11 Depression Screening Interpretation: Positive Depression Screening Follow-up: Existing condition and In treatment Depression Screening Done: Yes 17116 - PHQ-9 Billing: Yes Source: Developed by Drs. Maynor Grady, Srinivasan Young and colleagues, with an educational lavell from [employer]. Thrive Questionnaire Date Thrive assessed: 11/11/22 AUDIT C Alcohol Use Questionnaire (AUDIT-C) 1. How often do you have a drink containing alcohol?: Never Total Score: 0 OCTAVIO-7 AMB Questionnaire OCTAVIO-7 Date OCTAVIO - 7 assessed: 10/21/23 Feeling nervous, anxious, or on edge: 1 = Several days Not being able to stop or control worryin = Several days Worrying too much about different things: 3 = Nearly every day Trouble relaxin = Several days Being so restless that it is hard to sit still: 1 = Several days Becoming easily annoyed or irritable: 1 = Several days Feeling afraid as if something awful might happen: 1 = Several days Total OCTAVIO-7 score (0-4 normal; 5-9 mild; 10-14 moderate; 15-21 severe): 9 Source: Developed by Drs. Maynor Grady, Srinivasan Young and colleagues, with an educational lavell from [employer]. OCTAVIO-7 Assessment Billing OCTAVIO-7 Assessment Tool: OCTAVIO-7 Assessment 53648 Review of Systems Const All systems reviewed & are unremarkable except as noted in HPI and below Eyes Reports no additional complaints, Denies change in vision and Denies other visual disturbances Card Denies chest pain at rest, Denies chest pain with activity, Denies edema, Denies irregular heart rhythm, Denies claudication, Denies dyspnea, Denies dyspnea on exertion, Denies orthopnea, Denies paroxysmal nocturnal dyspnea and Denies slow heart rate Resp Denies cough, Denies dyspnea and Denies dyspnea on exertion GI Denies abdominal pain, Denies change in bowel habits, Denies excessive flatus, Denies nausea and Denies vomiting Denies urinary incontinence, Denies urinary hesitancy and Denies urinary urgency Musc Denies abnormal gait, Denies atrophy, Denies deformity and Denies limited range of motion Skin/Breast Denies bleeding lesions, Denies changing lesions and Denies rash Neuro Denies abnormal gait, Denies behavioral changes and Denies lack of coordination Psych Denies behavioral changes Physical exam (Primary Care) Vital Signs: Last Vital Signs BP 134/86 10/21/23 17:28 BMI result Body Mass Index 33.3 Tobacco/Smoking Status: Tobacco use Status Tobacco use date assessed 10/21/23 10/21/23 17:38 Patient Tobacco Use Status Never used Tobacco 10/21/23 17:38 e-Cigarette/Vaping Use Never Used 10/21/23 17:38 PHQ-9: PHQ-9 Score PHQ-9: Total score 11 10/21/23 17:38 Depression Screening Interpretation: Positive Depression Screening Follow-up: Existing condition and In treatment Thrive Assessment: Date of Thrive Assessment Date Thrive assessed 11/11/22 10/21/23 17:38 Eyes General: appearance normal, both eyes and all related structures Eyelids: Yes eyelids normal Conjunctivae: conjunctivae normal Neck Neck: Yes normal visual inspection and Yes supple Resp Effort & Inspection: normal respiratory effort Auscultation: clear to auscultation bilaterally Cardio Jugular venous distension: no JVD Rate: regular rate Rhythm: regular rhythm Heart sounds: S1 normal heart sound present and S2 normal heart sound present Extrem General: Yes full ROM Psych Appearance: grossly normal Results AMB Hemoglobin A1c AMB Hemoglobin A1c 6.2 % Last Edit by INDY Mandel on 10/21/23 17:4 0 Results Reviewed Results Reviewed: Laboratory Last Values Hgb A1c (Clinic) 6.2 % (4.0-6.0) H 10/21/23 17:39 Assessment and Plan Assessment & Plan (1) Pre-op evaluation: Code(s): Z01.818 - Encounter for other preprocedural examination Plan: Labs and EKG pending for medical clearance. (2) Moderate recurrent major depression: Code(s): F33.1 - Major depressive disorder, recurrent, moderate Plan: Continue SSRIs. Follow-up with psychiatry. (3) Type 2 diabetes mellitus: Code(s): E11.9 - Type 2 diabetes mellitus without complications Qualifiers: Diabetes mellitus supervisor intermediates insulin use: without care home use Diabetes mellitus complication status: without complication Qualified Code(s): E11.9 - Type 2 diabetes mellitus without complications Plan: Continue metformin. A1c goal is equal or less than 7%. (4) Hyperlipidemia: Code(s): E78.5 - Hyperlipidemia, unspecified Plan: Continue statins. Repeat lipid panel. LDL goal is less than 70. (5) Mild asthma: Code(s): J45.909 - Unspecified asthma, uncomplicated Plan: Use rescue inhaler as needed. Orders: Orders MM screening mammo BI Today Z01.818 - Encounter for other preprocedural examination, Z12.31 - Encounter for screening mammogram for malignant neoplasm of breast AMB Hemoglobin A1c Today E11.9 - Type 2 diabetes mellitus without complications ECG 12 lead EKG Today Z01.818 - Encounter for other preprocedural examination Lipid Panel Today E78.5 - Hyperlipidemia, unspecified Microalbumin, Random (w Creat) Today E11.9 - Type 2 diabetes mellitus without complications Complete Blood Count Auto Diff Today D64.9 - Anemia, unspecified, Z01.818 - Encounter for other preprocedural examination Comprehensive [place]. Panel Fast Today Z01.818 - Encounter for other preprocedural examination Coding Level of Care Code Est Pt Level 4 (60562) Diagnoses Pre-op evaluation Z01.818 Moderate recurrent major depression F33.1 Type 2 diabetes mellitus without complication, without long-term current use of insulin E11.9 Diabetes mellitus supervisor intermediates insulin use: without supervisor intermediates use Diabetes mellitus complication status: without complication Hyperlipidemia E78.5 Mild asthma J45.909 Additional Codes OCTAVIO-7 Assessment Billing - OCTAVIO-7 Assessment Tool: OCTAVIO-7 Assessment [id number] ([id number]) Time Spent (min) 22
== END 2023-10-21 17:49 | disposition home or self-care (01) ==
LOC: HO.HMGH 17:19
PROVIDERS: PCP Internal Medicine; Visit Provider Internal Medicine
DX: E11.69 Type 2 diabetes mellitus with other specified complication (principal); F33.1 Major depressive disorder, recurrent, moderate; E78.5 Hyperlipidemia, unspecified; J45.909 Unspecified asthma, uncomplicated; Z01.818 Encounter for other preprocedural examination
CPT/HCPCS: 83036; 99214

== ENCOUNTER → 2023-10-22 10:12 | Outpatient (REF) | payer OTHER, SELFPAY ==
--- NOTE | 2023-10-22 10:17 | ECG_ITS ---
Test Reason : PREOP Blood Pressure : / mmHG Vent. Rate : 066 BPM Atrial Rate : 066 BPM P-R Int : 176 ms QRS Dur : 096 ms QT Int : 390 ms P-R-T Axes : 055 038 068 degrees QTc Int : 408 ms Normal sinus rhythm Normal ECG When compared with ECG of 18-JUN-2021 12:16, No significant change was found Referred By: Aniya Hillman Electronically Signed By:Fermin Oliveros
[2023-10-22 11:05] LABS: Hematocrit 35.3 % (37.0-47.0); Hemoglobin 11.3 g/dl (12.0-16.0); Mean Corpuscular Hemoglobin 28.7 pg (27.0-33.0); Mean Corpuscular Volume 89.6 fL (80.0-98.0); Mean Platelet Volume 10.7 fL (9.4-12.3); Platelet Count 254 X10*3/uL (160-400); Red Blood Count 3.94 X10*6/uL (4.20-5.50); Red Cell Distribution Width 13.6 % (11.0-16.0); White Blood Count 3.6 X10*3/uL (4.8-10.8)
[2023-10-22 12:07] LABS: Basophils Percent Manual 1 % (0-2); Eosinophils Absolute Manual 0.1 X10*3/uL (0.0-0.4); Eosinophils Percent Manual 3 % (0-4); Lymphocytes Absolute Manual 0.6 X10*3/uL (1.2-4.9); Lymphocytes Percent Manual 18 % (20-40); Monocytes Absolute Manual 0.5 X10*3/uL (0.1-1.2); Monocytes Percent Manual 15 % (2-11); Neutrophils Percent Manual 63 % (45-73)
[2023-10-22 12:14] LABS: Platelet Estimate NORMAL (NORMAL); Platelet Morphology Comment NORMAL; RBC Morphology NORMAL
[2023-10-22 12:22] LABS: Alanine Aminotransferase 27 U/L (0-31); Albumin Level 4.1 g/dL (3.5-5.0); Alkaline Phosphatase 94 U/L (39-117); Anion Gap 11 (12-20); Aspartate Amino Transferase 28 U/L (5-31); Bilirubin Total 0.5 mg/dL (0.0-1.0); Blood Urea Nitrogen 12 mg/dL (9-16); Carbon Dioxide 29 mmol/L (22-29); Chloride 107 mmol/L (96-108); Cholesterol 138 mg/dL (<200); Estimated Glomerular Filt Rate > 60; Glucose Fasting 96 mg/dL (60-99); HDL Cholesterol 59 mg/dL (>40); Iron 48 mcg/dL (30-160); LDL Cholesterol Calculated 53 mg/dL (<100); Percent Iron Saturation 16 % (15-50); Potassium 3.6 mmol/L (3.3-5.1); Sodium 143 mmol/L (135-145); Total Iron Binding Capacity 292 mcg/dL (228-428); Triglycerides 134 mg/dL (<150); Unsaturated Iron Binding 244 ug/dL
[2023-10-22 12:37] LABS: Creatinine Urine 198.02 mg/dL; Microalbum/Creatinine Ratio Ur 23.7 ug/mg cr (<30)
[2023-10-22 12:37] LABS: Vitamin D 25-OH Total 28.8 ng/mL (>30)
[2023-10-22 14:51] LABS: Band Neutrophils Percent 0 % (3-5); Neutrophils Absolute Manual 2.3 X10*3/uL (2.0-8.3)
== END ==
LOC: HO.CARD 10:12
PROVIDERS: PCP Internal Medicine; Visit Provider Internal Medicine
DX: Z01.818 Encounter for other preprocedural examination (principal); E11.9 Type 2 diabetes mellitus without complications; E55.9 Vitamin D deficiency, unspecified; D64.9 Anemia, unspecified; E78.5 Hyperlipidemia, unspecified
CPT/HCPCS: 36415; 80053; 80061; 82043; 82306; 82570; 83540; 85007; 85025; 85027; 93005

== ENCOUNTER → 2023-10-22 10:17 | Outpatient (BNV) | payer OTHER, SELFPAY | PROVIDERS: PCP Internal Medicine; Visit Provider Internal Medicine Cardiovascular Disease | DX: Z01.818 Encounter for other preprocedural examination (principal) | CPT/HCPCS: 93010 ==

== ENCOUNTER 2023-11-17 13:13 | Outpatient (AMB) | payer OTHER, SELFPAY ==
[2023-11-17 13:24] VITALS: BP 132/86; BMI 32.7
--- NOTE | 2023-11-17 13:24 | MHC.PC.OV ---
Vital Signs 11/17/23 13:24 Height 5 ft 2 in Weight 179 lb BMI 32.7 BP 132/86 Blood Pressure Location Lt brachial Position Sitting Intake Visit Reasons: dm Intake Note: Patient here for a follow up DM Manufacturers Representative Required: No Accompanied by: Self / Same As Patient Allergies penicillin V Allergy (Intermediate, Verified 11/17/23 13:53) Hives Medication List - Last Reconciled 11/17/23 by Aniya Hillman MD atorvastatin 40 mg PO BEDTIME 90 days blood sugar diagnostic (FreeStyle Test strips) Use 1 test strip once a day clonazepam 1 mg PO BID cyclobenzaprine 10 mg PO BID PRN eszopiclone 3 mg PO BEDTIME fluoxetine 20 mg PO DAILY fluoxetine 0 mg PO hydroxyzine HCl 25 mg PO BEDTIME lactulose 10 grams (15 mL) PO BEDTIME PRN 90 days lancets (FreeStyle Lancets) USE 1 LANCET TO TEST BLOOD SUGAR ONCE DAILY metformin 500 mg PO DAILY 90 days pantoprazole 40 mg PO DAILY polyethylene glycol 3350 17 grams PO DAILY PRN 30 days prazosin 5 mg PO BEDTIME simethicone (Gas Relief (simethicone)) 250 mg (2 x 125 mg) PO BID PRN 30 days Ventolin HFA 90 mcg/actuation (albuterol sulfate) 2 puffs PO Q6H PRN NS Tobacco use date assessed: 10/21/23 Dental Screening Dental Screen Date: 11/17/23 Did you have a dental visit in the last 12 months?: Yes Did you have a dental problem in the last 6 months where you did not have access to dental care?: No Was dental information given to patient?: Patient has dentist HPI HPI Comments History of Present Illness Details This is a 57-year-old female with diabetes mellitus type 2, mild asthma, hyperlipidemia and moderate recurrent major depression that comes today for follow-up on her conditions. Last A1c was within goal. Last LDL was within goal. She use rescue inhaler less than once a month. On fluoxetine for her depression and has been stable. No chest pain or shortness of breath. [facility] Medical History (Updated 11/17/23 @ 14:22 by Aniya Hillman MD) Moderate recurrent major depression Macromastia History of gastrectomy Steatosis, liver Presence of dental bridge Hx of head injury Migraines Hx of cardiac murmur Patient is Mandaen PTSD (post-traumatic stress disorder) Insomnia Bipolar 1 disorder Hyperlipidemia Sleep apnea with use of continuous positive airway pressure (CPAP) Plantar fasciitis of right foot Hypovitaminosis D Pure hypercholesterolemia Moderately severe recurrent major depression Morbid obesity Change in bowel habit All medications reviewed Anxiety and depression High cholesterol Gastric ulcer Carpal tunnel syndrome De Quervain's disease (radial styloid tenosynovitis) Asthma Type 2 diabetes mellitus Surgical History (Updated 11/17/23 @ 13:56 by Aniya Hillman MD) Hx of breast reduction, elective History of weight loss surgery Hx of tubal ligation History of appendectomy (~2013) Family History Mother Alzheimers disease Father Alzheimers disease Diabetes Mother Alzheimers disease Osteoarthritis Rheumatoid arthritis Sister Mental disability Sister Cirrhosis Social History Household Members: Spouse Housing: House Are you a primary urgent care nurse practitioner to a significant other at home: No Do you presently have visiting nurse or other home services: No Alcohol intake: never Patient Tobacco Use Status: Never used Tobacco e-Cigarette/Vaping Use: Never Used Second Hand Smoke Exposure: No service: No Current occupational status: disabled Current occupation: right handed Cognitive needs: No Hearing needs: No Vision needs: No Questionnaire Thrive Questionnaire Date Thrive assessed: 11/11/22 OCTAVIO-7 AMB Questionnaire OCTAVIO-7 Date OCTAVIO - 7 assessed: 10/21/23 Source: Developed by Drs. Maynor Grady, Catherine Ricci, Srinivasan Sam and colleagues, with an educational lavell from [email or web address]. Review of Systems Const All systems reviewed & are unremarkable except as noted in HPI and below Eyes Reports no additional complaints, Denies change in vision and Denies other visual disturbances Card Denies chest pain at rest, Denies chest pain with activity, Denies edema, Denies irregular heart rhythm, Denies claudication, Denies dyspnea, Denies dyspnea on exertion, Denies orthopnea, Denies paroxysmal nocturnal dyspnea and Denies slow heart rate Resp Denies cough, Denies dyspnea and Denies dyspnea on exertion GI Denies abdominal pain, Denies change in bowel habits, Denies excessive flatus, Denies nausea and Denies vomiting Denies urinary incontinence, Denies urinary hesitancy and Denies urinary urgency Musc Denies abnormal gait, Denies atrophy, Denies deformity and Denies limited range of motion Skin/Breast Denies bleeding lesions, Denies changing lesions and Denies rash Neuro Denies abnormal gait, Denies behavioral changes and Denies lack of coordination Psych Denies behavioral changes Physical exam (Primary Care) Vital Signs: Last Vital Signs BP 132/86 11/17/23 13:24 BMI result Body Mass Index 32.7 Tobacco/Smoking Status: Tobacco use Status Tobacco use date assessed 10/21/23 11/17/23 13:31 Patient Tobacco Use Status Never used Tobacco 11/17/23 13:31 e-Cigarette/Vaping Use Never Used 11/17/23 13:31 Thrive Assessment: Date of Thrive Assessment Date Thrive assessed 11/11/22 11/17/23 13:31 Eyes General: appearance normal, both eyes and all related structures Eyelids: Yes eyelids normal Conjunctivae: conjunctivae normal Neck Neck: Yes normal visual inspection and Yes supple Resp Effort & Inspection: normal respiratory effort Auscultation: clear to auscultation bilaterally Cardio Jugular venous distension: no JVD Rate: regular rate Rhythm: regular rhythm Heart sounds: S1 normal heart sound present and S2 normal heart sound present Extrem General: Yes full ROM Assessment and Plan Assessment & Plan (1) Moderate recurrent major depression: Code(s): F33.1 - Major depressive disorder, recurrent, moderate Plan: Continue fluoxetine. (2) Type 2 diabetes mellitus: Code(s): E11.9 - Type 2 diabetes mellitus without complications Qualifiers: Diabetes mellitus penitentiary insulin use: without terminal manager use Diabetes mellitus complication status: without complication Qualified Code(s): E11.9 - Type 2 diabetes mellitus without complications Plan: Continue metformin. A1c goal is equal or less than 7%. (3) Hyperlipidemia: Code(s): E78.5 - Hyperlipidemia, unspecified Plan: Continue statins. LDL goal is less than 70. (4) Mild asthma: Code(s): J45.909 - Unspecified asthma, uncomplicated Plan: Use rescue inhaler as needed Medications: Refilled pantoprazole 40 mg PO DAILY 90 tabs 2RF metformin 500 mg PO DAILY 90 tabs 1RF 90 days Coding Level of Care Code Est Pt Level 4 (06438) Diagnoses Moderate recurrent major depression F33.1 Type 2 diabetes mellitus without complication, without long-term current use of insulin E11.9 Diabetes mellitus penitentiary insulin use: without penitentiary use Diabetes mellitus complication status: without complication Hyperlipidemia E78.5 Mild asthma J45.909 Time Spent (min) 25
== END 2023-11-17 14:00 | disposition home or self-care (01) ==
PROVIDERS: PCP Internal Medicine; Visit Provider Internal Medicine
DX: F33.1 Major depressive disorder, recurrent, moderate (principal); E11.9 Type 2 diabetes mellitus without complications; E78.5 Hyperlipidemia, unspecified; J45.909 Unspecified asthma, uncomplicated
CPT/HCPCS: 99214

== ENCOUNTER 2024-03-15 16:32 | Outpatient (AMB) | payer OTHER, SELFPAY ==
--- NOTE | 2024-03-15 16:39 | MHC.PC.OV ---
Vital Signs 03/15/24 16:40 Height 5 ft 2 in Weight 183 lb BMI 33.5 BP 132/78 Blood Pressure Location Lt brachial Position Sitting Pulse 61 Pulse Source Pulse Oximeter Pulse Oximetry (%) 99 Oxygen Delivery Method Room Air Intake Visit Reasons: 4 month f/u Silver Service Waiter Required: No Accompanied by: Self / Same As Patient Allergies penicillin V Allergy (Intermediate, Verified 03/15/24 16:53) Hives Medication List - Last Reconciled 03/15/24 by Aniya Hillman MD atorvastatin 40 mg PO BEDTIME 90 days blood sugar diagnostic (FreeStyle Test strips) Use 1 test strip once a day clonazepam 1 mg PO BID cyclobenzaprine 10 mg PO BID PRN eszopiclone 3 mg PO BEDTIME fluoxetine 20 mg PO DAILY fluoxetine 0 mg PO hydroxyzine HCl 25 mg PO BEDTIME lactulose 10 grams (15 mL) PO BEDTIME PRN 90 days lancets (FreeStyle Lancets) USE 1 LANCET TO TEST BLOOD SUGAR ONCE DAILY metformin 500 mg PO DAILY 90 days pantoprazole 40 mg PO DAILY polyethylene glycol 3350 17 grams PO DAILY PRN 30 days prazosin 5 mg PO BEDTIME simethicone (Gas Relief (simethicone)) 250 mg (2 x 125 mg) PO BID PRN 30 days Ventolin HFA 90 mcg/actuation (albuterol sulfate) 2 puffs PO Q6H PRN NS Tobacco use date assessed: 10/21/23 Dental Screening Dental Screen Date: 11/17/23 HPI HPI Comments History of Present Illness Details This is a 58-year-old female with diabetes mellitus type 2, hyperlipidemia, moderate recurrent major depression and constipation that comes today for follow-up on her conditions. A1c within goal. Lipid panel will be order and her LDL goal should be less than 70. Depression stable with SSRIs and this is follow by Psychiatry. Constipation still present with lactulose and was advised to do a high-fiber diet. No chest pain or shortness of breath. [facility] Medical History (Updated 03/15/24 @ 17:08 by Aniya Hillman MD) Moderate recurrent major depression Macromastia History of gastrectomy Steatosis, liver Presence of dental bridge Hx of head injury Migraines Hx of cardiac murmur Patient is Jewish PTSD (post-traumatic stress disorder) Insomnia Bipolar 1 disorder Hyperlipidemia Sleep apnea with use of continuous positive airway pressure (CPAP) Plantar fasciitis of right foot Hypovitaminosis D Pure hypercholesterolemia Moderately severe recurrent major depression Morbid obesity Change in bowel habit All medications reviewed Anxiety and depression High cholesterol Gastric ulcer Carpal tunnel syndrome De Quervain's disease (radial styloid tenosynovitis) Asthma Type 2 diabetes mellitus Surgical History Hx of breast reduction, elective History of weight loss surgery Hx of tubal ligation History of appendectomy (~2013) Family History Mother Alzheimers disease Father Alzheimers disease Diabetes Mother Alzheimers disease Osteoarthritis Rheumatoid arthritis Sister Mental disability Sister Cirrhosis Social History Household Members: Spouse Housing: House Are you a primary primary care nurse practitioner to a significant other at home: No Do you presently have visiting nurse or other home services: No Alcohol intake: never Patient Tobacco Use Status: Never used Tobacco e-Cigarette/Vaping Use: Never Used Second Hand Smoke Exposure: No service: No Current occupational status: disabled Current occupation: right handed Cognitive needs: No Hearing needs: No Vision needs: No Questionnaire PHQ-9 Over the last 2 weeks, how often have you been bothered by any of the following problems? 1. Little interest or pleasure in doing things: several days 2. Feeling down, depressed, or hopeless: several days 3. Trouble falling or staying asleep, or sleeping too much: nearly every day 4. Feeling tired or having little energy: nearly every day 5. Poor appetite or overeating: not at all 6. Feeling bad about yourself - or that you are a failure or have let yourself or your family down: several days 7. Trouble concentrating on things, such as reading the newspaper or watching television: several days 8. Moving or speaking so slowly that other people could have noticed. Or the opposite - being so fidgety or restless that you have been moving around a lot more than usual: several days 9. Thoughts that you would be better off or of hurting yourself in some way: not at all Total score: 11 Depression Screening Interpretation: Positive Depression Screening Follow-up: Existing condition, In treatment, Community Mental Health Worker F/U and Follow-up Visit Requested Depression Screening Done: Yes 33744 - PHQ-9 Billing: Yes Source: Developed by Drs. Maynor Grady, Catherine Ricci, Srinivasan Sam and colleagues, with an educational lavell from [employer]. Thrive Questionnaire Date Thrive assessed: 03/15/24 I am a: Patient What is your living situation today?: I have a steady place to live Within the past 12 months, did the food you bought not last and you didn't have the money to get more?: Never true Within the past 12 months, did you worry whether your food would run out before you got money to buy more?: Never true Do you have trouble paying for medicines?: No Do you have trouble getting transportation to medical appointments?: No Do you have trouble paying your heating and electricity bill?: No Do you have trouble taking care of your child, family member or friend?: No Do you have trouble with day-to-day activities such as bathing, preparing meals, shopping, managing finances, etc.?: No Are you currently unemployed and looking for a job?: No Are you interested in more education?: No Please select the resources that you would like help with: None Currently or been in a relationship where the following occur: no concerns reported THRIVE Score: 0 AUDIT C Alcohol Use Questionnaire (AUDIT-C) 1. How often do you have a drink containing alcohol?: Never 3. How often do you have six or more drinks on one occasion?: Never Total Score: 0 OCTAVIO-7 AMB Questionnaire OCTAVIO-7 Date OCTAVIO - 7 assessed: 10/21/23 Source: Developed by Drs. Maynor Grady, Catherine Ricci, Srinivasan Sam and colleagues, with an educational lavell from [employer]. Review of Systems Const All systems reviewed & are unremarkable except as noted in HPI and below Card Denies chest pain at rest, Denies chest pain with activity, Denies edema, Denies irregular heart rhythm, Denies claudication, Denies dyspnea, Denies dyspnea on exertion, Denies orthopnea, Denies paroxysmal nocturnal dyspnea and Denies slow heart rate Resp Denies cough, Denies dyspnea and Denies dyspnea on exertion GI Denies abdominal pain, Denies change in bowel habits, Denies excessive flatus, Denies nausea and Denies vomiting Physical exam (Primary Care) Vital Signs: Last Vital Signs Pulse 61 03/15/24 16:40 BP 132/78 03/15/24 16:40 Pulse Ox 99 03/15/24 16:40 Oxygen Delivery Method Room Air 03/15/24 16:40 BMI result Body Mass Index 33.5 Tobacco/Smoking Status: Tobacco use Status Tobacco use date assessed 10/21/23 03/15/24 16:45 Patient Tobacco Use Status Never used Tobacco 03/15/24 16:45 e-Cigarette/Vaping Use Never Used 03/15/24 16:45 PHQ-9: PHQ-9 Score PHQ-9: Total score 11 03/15/24 16:47 Depression Screening Interpretation: Positive Depression Screening Follow-up: Existing condition, In treatment, Community Mental Health Worker F/U and Follow-up Visit Requested Thrive Assessment: Date of Thrive Assessment Date Thrive assessed 03/15/24 03/15/24 16:45 Currently or been in a relationship where the following occur: no concerns reported Resp Effort & Inspection: normal respiratory effort Auscultation: clear to auscultation bilaterally Cardio Jugular venous distension: no JVD Rate: regular rate Rhythm: regular rhythm Heart sounds: S1 normal heart sound present and S2 normal heart sound present Extrem General: Yes full ROM Results AMB Hemoglobin A1c AMB Hemoglobin A1c 5.9 % Last Edit by INDY Yañez on 03/15/24 16:48 Results Reviewed Results Reviewed: Laboratory Last Values Hgb A1c (Clinic) 5.9 % (4.0-6.0) 03/15/24 16:06 Assessment and Plan Assessment & Plan (1) Moderate recurrent major depression: Code(s): F33.1 - Major depressive disorder, recurrent, moderate Plan: Continue fluoxetine. Follow-up with psychiatry. (2) Constipation: Code(s): K59.00 - Constipation, unspecified Qualifiers: Constipation type: chronic idiopathic constipation Qualified Code(s): K59.04 - Chronic idiopathic constipation Plan: Continue lactulose as needed. Start high-fiber diet. (3) Type 2 diabetes mellitus: Code(s): E11.9 - Type 2 diabetes mellitus without complications Qualifiers: Diabetes mellitus salvage determiner insulin use: without salvage determiner use Diabetes mellitus complication status: without complication Qualified Code(s): E11.9 - Type 2 diabetes mellitus without complications Plan: Continue metformin. A1c goal is equal or less than 7%. (4) Hyperlipidemia: Code(s): E78.5 - Hyperlipidemia, unspecified Plan: Continue statins. Repeat lipid panel. LDL goal is less than 70. Orders: Orders Lipid Panel Today E78.5 - Hyperlipidemia, unspecified Microalbumin, Random (w Creat) Today E11.9 - Type 2 diabetes mellitus without complications Complete Blood Count Auto Diff Today D64.9 - Anemia, unspecified IRON PROFILE Today D64.9 - Anemia, unspecified Vitamin D 25-OH Total Today E55.9 - Vitamin D deficiency, unspecified Comprehensive [place]. Panel Fast Today E11.9 - Type 2 diabetes mellitus without complications AMB Hemoglobin A1c Today E11.9 - Type 2 diabetes mellitus without complications Coding Level of Care Code Est Pt Level 4 (26258) Diagnoses Moderate recurrent major depression F33.1 Chronic idiopathic constipation K59.04 Constipation type: chronic idiopathic constipation Type 2 diabetes mellitus without complication, without long-term current use of insulin E11.9 Diabetes mellitus mcfp insulin use: without mcfp use Diabetes mellitus complication status: without complication Hyperlipidemia E78.5 Time Spent (min) 23
[2024-03-15 16:40] VITALS: BP 132/78; PULSE 61; O2SAT 99; BMI 33.5
== END 2024-03-15 17:02 | disposition home or self-care (01) ==
PROVIDERS: PCP Internal Medicine; Visit Provider Internal Medicine
DX: F33.1 Major depressive disorder, recurrent, moderate (principal); K59.04 Chronic idiopathic constipation; E11.9 Type 2 diabetes mellitus without complications; E78.5 Hyperlipidemia, unspecified
CPT/HCPCS: 83036; 99214

== ENCOUNTER 2024-03-24 09:36 | Outpatient (REF) | payer OTHER, SELFPAY ==
[2024-03-24 09:53] LABS: MANUAL DIFF FLAG NO
[2024-03-24 10:20] LABS: Basophils Percent Auto 0.7 % (0-2); Eosinophils Absolute Auto 0.2 X10*3/uL (0.0-0.4); Eosinophils Percent Auto 5.4 % (0-4); Hematocrit 36.4 % (37.0-47.0); Hemoglobin 11.4 g/dl (12.0-16.0); Imm Gran Abs Auto 0.01 X10*3/uL (0.00-0.03); Imm Gran Pct Auto 0.2 % (0.0-0.4); Lymphocytes Absolute Auto 1.3 X10*3/uL (1.2-4.9); Lymphocytes Percent Auto 31.1 % (20-40); Mean Corpuscular HGB Conc 31.3 g/dl (31.0-35.0); Mean Corpuscular Volume 89.4 fL (80.0-98.0); Mean Platelet Volume 10.4 fL (9.4-12.3); Monocytes Absolute Auto 0.4 X10*3/uL (0.1-1.2); Monocytes Percent Auto 9.8 % (2-11); Neutrophils Absolute Auto 2.3 x10*3/uL (2.0-8.3); Neutrophils Percent Auto 52.8 % (45-73); Platelet Count 299 X10*3/uL (160-400); Red Blood Count 4.07 X10*6/uL (4.20-5.50); Red Cell Distribution Width 14.2 % (11.0-16.0); White Blood Count 4.3 X10*3/uL (4.8-10.8)
[2024-03-24 10:43] LABS: Creatinine Urine 101.24 mg/dL; Microalbum/Creatinine Ratio Ur 18.7 ug/mg cr (<30)
[2024-03-24 10:52] LABS: Alanine Aminotransferase 25 U/L (0-31); Albumin Level 4.2 g/dL (3.5-5.0); Alkaline Phosphatase 86 U/L (39-117); Anion Gap 8 (12-20); Aspartate Amino Transferase 26 U/L (5-31); Bilirubin Total 0.5 mg/dL (0.0-1.0); Blood Urea Nitrogen 15 mg/dL (9-16); Calcium 9.2 mg/dL (8.4-10.2); Carbon Dioxide 30 mmol/L (22-29); Chloride 108 mmol/L (96-108); Cholesterol 152 mg/dL (<200); Estimated Glomerular Filt Rate > 60; Glucose Fasting 100 mg/dL (60-99); HDL Cholesterol 68 mg/dL (>40); Iron 49 mcg/dL (30-160); LDL Cholesterol Calculated 69 mg/dL (<100); Percent Iron Saturation 15 % (15-50); Sodium 142 mmol/L (135-145); Total Iron Binding Capacity 324 mcg/dL (228-428); Total Protein 7.2 g/dL (6.5-8.0); Triglycerides 77 mg/dL (<150); Unsaturated Iron Binding 275 ug/dL
[2024-03-24 11:10] LABS: Vitamin D 25-OH Total 29.6 ng/mL (>30)
== END 2024-03-24 09:37 | disposition home or self-care (01) ==
LOC: HO.LAB 09:36
PROVIDERS: PCP Internal Medicine; Visit Provider Internal Medicine
DX: E11.9 Type 2 diabetes mellitus without complications (principal); E78.5 Hyperlipidemia, unspecified; D64.9 Anemia, unspecified; E55.9 Vitamin D deficiency, unspecified
CPT/HCPCS: 36415; 80053; 80061; 82043; 82306; 82570; 83540; 85025

== ENCOUNTER 2024-06-23 09:39 | Outpatient (AMB) | payer OTHER, SELFPAY ==
--- NOTE | 2024-06-23 09:30 | A.OFFVIS_ITS ---
VS Expanded 06/23/24 09:39 Height 5 ft 2 in Weight 179 lb BMI 32.7 Intake Visit Reasons: TV PO LSG 09/06/2021 Asphalt Roller Operator Required: Yes Asphalt Roller Operator Name: Ameena [id number] Information Interpreted: clinical only Allergies penicillin V Allergy (Intermediate, Verified 03/15/24 16:53) Hives Medication List - Last Reconciled 06/23/24 by SANDI Carbone atorvastatin 40 mg PO BEDTIME 90 days blood sugar diagnostic (FreeStyle Test strips) Use 1 test strip once a day cetirizine (All Day Allergy (cetirizine)) 10 mg PO DAILY PRN 90 days clonazepam 1 mg PO BID cyclobenzaprine 10 mg PO BID PRN eszopiclone 3 mg PO BEDTIME fluoxetine 20 mg PO DAILY fluoxetine 0 mg PO lactulose 10 grams (15 mL) PO BEDTIME PRN 90 days lancets (FreeStyle Lancets) USE 1 LANCET TO TEST BLOOD SUGAR ONCE DAILY metformin 500 mg PO DAILY 90 days pantoprazole 40 mg PO DAILY polyethylene glycol 3350 17 grams PO DAILY PRN 30 days prazosin 5 mg PO BEDTIME simethicone (Gas Relief (simethicone)) 250 mg (2 x 125 mg) PO BID PRN 30 days Ventolin HFA 90 mcg/actuation (albuterol sulfate) 2 puffs PO Q6H PRN NS HPI Comments Details: This?is a?58?yo female who is s/p LSG 09/06/2021. Weight at last visit on 11/23/2021 was 173 pounds with a BMI of 31.6, weight today is 179 pounds, representing a 6 pound weight gain with a BMI today of .? No complaints of nausea, emesis, abdominal pain or reflux, or constipation. Present meal plan includes: I hardly ever eat , not following a plan Exercise routine includes: nothing recently, her older son in March and has been feeling depressed [facility] Medical History (Updated 03/15/24 @ 17:08 by Aniya Hillman MD) Moderate recurrent major depression Macromastia History of gastrectomy Steatosis, liver Presence of dental bridge Hx of head injury Migraines Hx of cardiac murmur Patient is Sabian[place] PTSD (post-traumatic stress disorder) Insomnia Bipolar 1 disorder Hyperlipidemia Sleep apnea with use of continuous positive airway pressure (CPAP) Plantar fasciitis of right foot Hypovitaminosis D Pure hypercholesterolemia Moderately severe recurrent major depression Morbid obesity Change in bowel habit All medications reviewed Anxiety and depression High cholesterol Gastric ulcer Carpal tunnel syndrome De Quervain's disease (radial styloid tenosynovitis) Asthma Type 2 diabetes mellitus Surgical History Hx of breast reduction, elective History of weight loss surgery Hx of tubal ligation History of appendectomy (~2013) Family History Mother Alzheimers disease Father Alzheimers disease Diabetes Mother Alzheimers disease Osteoarthritis Rheumatoid arthritis Sister Mental disability Sister Cirrhosis Social History Household Members: Spouse Housing: House Are you a primary emergency care tech to a significant other at home: No Do you presently have visiting nurse or other home services: No Alcohol intake: never Patient Tobacco Use Status: Never used Tobacco e-Cigarette/Vaping Use: Never Used Second Hand Smoke Exposure: No service: No Current occupational status: disabled Current occupation: right handed Cognitive needs: No Hearing needs: No Vision needs: No Telehealth Telehealth Telehealth Platform: Telephone Location of provider rendering services: other Location of patient: address on file Patient Identification confirmed using: Name, : Yes Telehealth method: voice only Patient verbally consented to treatment: Yes Patient verbally consented to billing insurance company: Yes Patient informed of any privacy concerns related to visit: Yes Minutes spent on Phone/Video with Pt.: 18 Assessment & Plan Assessment & Plan (1) S/P laparoscopic sleeve gastrectomy: Code(s): Z98.84 - Bariatric surgery status Category: Surgical (2) Obesity: Code(s): E66.9 - Obesity, unspecified Category: Medical Plan New meal plan for pt- 1 Celebrate Rebuild shake with 2 scoops 1 Celebrate Rebuild shake with 1 scoop 1 Pure Protein bar 1 meal 6f/6f Encouraged her to resume walking for exercise or use stepping pad in basement. Had many labs done recently, will order vitamin levels. RTC 6-8 weeks. Texted meal plan to pt and encouraged her to reach out between appts. Sent photos of Rebuild and Pure products. I spent a total of 30 minutes reviewing/updating records, examining the patient and counseling the patient on weight management as detailed above. Orders: Orders Vitamin B12 and Folate Today Z98.84 - Bariatric surgery status Zinc Today Z98.84 - Bariatric surgery status Vitamin A Today Z98.84 - Bariatric surgery status Vitamin B1 Today Z98.84 - Bariatric surgery status
[2024-06-23 09:39] VITALS: BMI 32.7
== END 2024-06-23 10:03 | disposition home or self-care (01) ==
LOC: HO.HBS 09:39
PROVIDERS: PCP Internal Medicine; Visit Provider Physician Assistant Surgical
DX: E66.9 Obesity, unspecified (principal); Z68.32 Body mass index [BMI] 32.0-32.9, adult; Z90.3 Acquired absence of stomach [part of]; Z98.84 Bariatric surgery status
CPT/HCPCS: 98967

== ENCOUNTER → 2024-06-23 09:39 | Outpatient (BNVA) | payer OTHER, SELFPAY | PROVIDERS: PCP Internal Medicine; Visit Provider Physician Assistant Surgical ==

== ENCOUNTER 2024-08-02 15:20 | Outpatient (AMB) | payer OTHER, SELFPAY ==
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
[2024-08-02 15:42] VITALS: BMI 33.3
== END 2024-08-02 16:15 | disposition home or self-care (01) ==
LOC: HO.HMCH 15:21
PROVIDERS: PCP Internal Medicine; Visit Provider Internal Medicine
DX: Z00.00 Encounter for general adult medical examination without abnormal findings (principal); F33.1 Major depressive disorder, recurrent, moderate; E11.9 Type 2 diabetes mellitus without complications; R10.9 Unspecified abdominal pain

== ENCOUNTER → 2024-08-02 15:20 | Outpatient (BNVA) | payer OTHER, SELFPAY | PROVIDERS: PCP Internal Medicine; Visit Provider Internal Medicine | DX: Z00.01 Encounter for general adult medical examination with abnormal findings (principal); Z23 Encounter for immunization; F33.1 Major depressive disorder, recurrent, moderate; E11.9 Type 2 diabetes mellitus without complications; R10.9 Unspecified abdominal pain | CPT/HCPCS: 90471; 90656; 96127; 99212; 99396 ==

== ENCOUNTER 2024-08-18 09:32 | Outpatient (REF) | payer OTHER, SELFPAY | END 2024-08-18 09:33 | disposition home or self-care (01) | LOC: HO.US 09:32 | PROVIDERS: PCP Internal Medicine; Visit Provider Internal Medicine | DX: R10.9 Unspecified abdominal pain (principal) | CPT/HCPCS: 76700; 76981 ==

== ENCOUNTER → 2024-08-18 09:35 | Outpatient (BNV) | payer OTHER, SELFPAY | PROVIDERS: PCP Internal Medicine; Visit Provider Radiology Diagnostic Radiology | DX: R10.9 Unspecified abdominal pain (principal) | CPT/HCPCS: 76700; 76981 ==

== ENCOUNTER 2024-08-30 12:48 | Outpatient (AMB) | payer OTHER, SELFPAY ==
--- NOTE | 2024-08-30 12:52 | A.OFFVIS_ITS ---
VS Expanded 08/30/24 13:15 BP 154/74 H Blood Pressure Location Rt brachial Blood Pressure Position Sitting Pulse 72 Pulse Source Pulse Oximeter Temp 97.8 F Temperature Source Temporal Artery Scan Pulse Oximetry 97 Oxygen Delivery Method Room Air Height 5 ft 6 in Weight 179 lb 6.4 oz BMI 29.0 Body Fat % 37.6 Body Fat Mass 67.4 Fat Free Mass 111.8 Visceral Fat Rating 10.0 Body Water % 44.2 Body Water Mass 79.2 Muscle Mass/Score 106.0 Basal Metabolic Rate/Score 1,521 Intake Visit Reasons: (OV) PO LSG 09/06/21 Tools Programmer Required: Yes Tools Programmer Name: Veena Mendiola [id number] Allergies penicillin V Allergy (Intermediate, Verified 08/30/24 13:09) Hives Medication List - Last Reconciled 08/30/24 by SANDI Carbone atorvastatin 40 mg PO BEDTIME 90 days blood sugar diagnostic (FreeStyle Test strips) Use 1 test strip once a day cetirizine (All Day Allergy (cetirizine)) 10 mg PO DAILY PRN 90 days clonazepam 1 mg PO BID cyclobenzaprine 10 mg PO BID PRN eszopiclone 3 mg PO BEDTIME fluoxetine 20 mg PO DAILY fluoxetine 0 mg PO hydroxyzine HCl 25 mg PO DAILY lactulose 10 grams (15 mL) PO BEDTIME PRN 90 days lancets (Ultra-Care Lancets) USE 1 LANCET TO TEST BLOOD SUGAR ONCE DAILY metformin 500 mg PO DAILY 90 days pantoprazole 40 mg PO DAILY polyethylene glycol 3350 17 grams PO DAILY PRN 30 days prazosin 5 mg PO BEDTIME simethicone (Gas Relief (simethicone)) 250 mg (2 x 125 mg) PO BID PRN 30 days sumatriptan succinate 25 mg PO Q2-4H PRN 30 days Ventolin HFA 90 mcg/actuation (albuterol sulfate) 2 puffs PO Q6H PRN NS HPI Comments Details: This?is a?58?yo female who is s/p LSG 09/06/2021. Presents for 3 year post op visit. Weight at last visit on 06/23/2024 was 179 pounds with a BMI of 32.7, weight today is 179.4 pounds, representing a 0.4 pound weight gain with a BMI today of 32.8.? PCP ordered liver elastography for pt's complaints of abdominal pain. She had liver elastography, but pt reports her pain is actually left sided. Has her gallbladder still, had appendix removed. Pt reports pain is unpredictable in timing, not particularly related to eating/drinking/movement as far as she can tell. Pain may last an hour, she presses hard on the area which brings some relief. No N/V. Nonbloody stools. Last colonoscopy was a while ago but pt reports her PCP says she is not due for another yet. With further questioning pt reports constipation, no BM for 4-5 days. Takes lactulose and Miralax. Pt reports not eating much due to depression regarding son's passing. Present meal plan includes: 1 Celebrate Rebuild shake with 2 scoops 1 Celebrate Rebuild shake with 1 scoop 1 Pure Protein bar 1 meal 6f/6f pt reports adequate hydration Exercise routine includes: nothing consistent since depressed after son's passing has a walking pad in basement Have you been diagnosed with reflux (GERD)? yes, pantoprazole PRN Score 0-5: 0=no symptoms, 1=noticeable but not bothersome (slight or occasional), 2=noticeable, bothersome but not daily, 3=bothersome and daily, 4=affects daily activities, 5=incapacitating, unable to do daily activities How bad is the heartburn: 0 Heartburn when lying down: 0 Heartburn when standing up: 0 Heartburn after meals: 0 Does heartburn change your diet: 0 Does heartburn wake you up from sleep: 0 Do you have difficulty swallowin Do you have pain with swallowin If you take medication for reflux, does this affect your daily life: 0 Total score: 0 PFSH Medical History Moderate recurrent major depression Macromastia History of gastrectomy Steatosis, liver Presence of dental bridge Hx of head injury Migraines Hx of cardiac murmur Patient is Muslim PTSD (post-traumatic stress disorder) Insomnia Bipolar 1 disorder Hyperlipidemia Sleep apnea with use of continuous positive airway pressure (CPAP) Plantar fasciitis of right foot Hypovitaminosis D Pure hypercholesterolemia Moderately severe recurrent major depression Morbid obesity Change in bowel habit All medications reviewed Anxiety and depression High cholesterol Gastric ulcer Carpal tunnel syndrome De Quervain's disease (radial styloid tenosynovitis) Asthma Type 2 diabetes mellitus Surgical History Hx of breast reduction, elective History of weight loss surgery Hx of tubal ligation History of appendectomy (~2013) Family History Mother Alzheimers disease Father Alzheimers disease Diabetes Parkinson disease Mother Alzheimers disease Osteoarthritis Rheumatoid arthritis Sister Mental disability Sister Cirrhosis Son Cirrhosis, Onset Age: 43 Substance use disorder Social History Household Members: Spouse Housing: House Are you a primary urgent care physician assistant to a significant other at home: No Do you presently have visiting nurse or other home services: No Alcohol intake: never Patient Tobacco Use Status: Never used Tobacco e-Cigarette/Vaping Use: Never Used Second Hand Smoke Exposure: No service: No Current occupational status: disabled Current occupation: right handed Cognitive needs: No Hearing needs: No Vision needs: No Assessment & Plan Assessment & Plan (1) S/P laparoscopic sleeve gastrectomy: Code(s): Z98.84 - Bariatric surgery status Category: Surgical (2) Obesity: Code(s): E66.9 - Obesity, unspecified Category: Medical (3) Abdominal pain: Code(s): R10.9 - Unspecified abdominal pain Category: Medical Plan I think her left sided abdominal pain is due to constipation. Start senna and fiber gummies. Continue Miralax also. We discussed the importance of a high protein meal plan and exercise for weight loss. Her weight has remained stagnant. She knows she has to put the work in to see progress. Wrote plan for pt again and gave her my phone # to communicate between visits with any questions. RTC 3 months. I spent a total of 30 minutes reviewing/updating records, examining the patient and counseling the patient on weight management as detailed above. Medications: New inulin (Fiber Gummies) 2 grams PO DAILY 90 tabs 3RF sennosides (Senokot Extra Strength) 17.2 mg PO BID PRN 90 tabs 2RF constipation
[2024-08-30 13:15] VITALS: BP 154/74; PULSE 72; TEMP 36.6; O2SAT 97; BMI 29.0
== END 2024-08-30 13:40 | disposition home or self-care (01) ==
PROVIDERS: PCP Internal Medicine; Visit Provider Physician Assistant Surgical
DX: R10.9 Unspecified abdominal pain (principal); E66.3 Overweight; Z68.29 Body mass index [BMI] 29.0-29.9, adult; Z98.84 Bariatric surgery status
CPT/HCPCS: 99214; G2211

== ENCOUNTER → 2024-08-30 12:48 | Outpatient (BNVA) | payer OTHER, SELFPAY | PROVIDERS: PCP Internal Medicine; Visit Provider Physician Assistant Surgical | DX: E66.9 Obesity, unspecified (principal); R10.9 Unspecified abdominal pain; Z68.29 Body mass index [BMI] 29.0-29.9, adult; Z90.3 Acquired absence of stomach [part of] | CPT/HCPCS: 99212 ==

== ENCOUNTER 2024-12-15 15:26 | Outpatient (AMB) | payer OTHER, SELFPAY ==
--- NOTE | 2024-12-15 15:31 | A.OFFPC_ITS ---
Vital Signs 12/15/24 15:34 Height 5 ft 6 in Weight 190 lb BMI 30.7 BP 128/82 Blood Pressure Location Lt brachial Position Sitting Intake Visit Reasons: dm Intake Note: Patient here for a follow up DM Software Reverse Engineer Required: Yes Software Reverse Engineer Language: Automotive Service Consultant Name: Aniya Hillman MD Information Interpreted: non-clinical & clinical Accompanied by: Self / Same As Patient Allergies penicillin V Allergy (Intermediate, Verified 12/15/24 15:48) Hives Medication List - Last Reconciled 12/15/24 by Aniya Hillman MD atorvastatin 40 mg PO BEDTIME 90 days blood sugar diagnostic (FreeStyle Test strips) Use 1 test strip once a day cetirizine (All Day Allergy (cetirizine)) 10 mg PO DAILY PRN 90 days clonazepam 1 mg PO BID cyclobenzaprine 10 mg PO BID PRN eszopiclone 3 mg PO BEDTIME fluoxetine 20 mg PO DAILY fluoxetine 0 mg PO hydroxyzine HCl 25 mg PO DAILY inulin (Fiber Gummies) 2 grams PO DAILY lactulose 10 grams (15 mL) PO BEDTIME PRN 90 days lancets (Ultra-Care Lancets) USE 1 LANCET TO TEST BLOOD SUGAR ONCE DAILY metformin 500 mg PO DAILY 90 days pantoprazole 40 mg PO DAILY polyethylene glycol 3350 17 grams PO DAILY PRN 30 days prazosin 5 mg PO BEDTIME sennosides (Senokot Extra Strength) 17.2 mg PO BID PRN simethicone (Gas Relief (simethicone)) 250 mg (2 x 125 mg) PO BID PRN 30 days sumatriptan succinate 25 mg PO Q2-4H PRN 30 days Ventolin HFA 90 mcg/actuation (albuterol sulfate) 2 puffs PO Q6H PRN NS walker (Ultra-Light Rollator misc) As directed Tobacco use date assessed: 12/15/24 Dental Screening Dental Screen Date: 12/15/24 Did you have a dental visit in the last 12 months?: No Did you have a dental problem in the last 6 months where you did not have access to dental care?: No Was dental information given to patient?: Patient has dentist HPI HPI Comments History of Present Illness Details The patient is a 59-year-old female presenting for a follow-up regarding diabetes management, hyperlipidemia, and other chronic conditions. The patient's Hemoglobin A1c is currently at 6.3%, indicating satisfactory glycemic control. She is on atorvastatin for hyperlipidemia, and past lab results have shown an LDL of 69 mg/dL. Although her vitamin D level is slightly low at 29.6 ng/mL, she is clinically asymptomatic. The patient has been experiencing chronic thoracic pain, initially starting after her son's passing on March 24, 2024, which correlates with her reported increased stress levels. The pain is described as severe at times, radiating, and often debilitating, with some improvement on certain days. The pain may worsen with constipation, as she notes severe discomfort when experiencing bowel irregularities. Constipation is self-managed with lactulose and MiraLax as needed. Also complains of thoracic spine pain that happens occasionally and will be referred to pain management. Her psychiatric concerns include depression, anxiety, and insomnia, managed with fluoxetine, clonazepam, eszopiclone, and hydroxyzine, with ongoing psychiatric follow-up. These conditions reportedly exacerbated by personal stressors. [facility] Medical History (Updated 12/15/24 @ 16:03 by Aniya Hillman MD) Moderate recurrent major depression Macromastia History of gastrectomy Steatosis, liver Presence of dental bridge Hx of head injury Migraines Hx of cardiac murmur Patient is [employer] PTSD (post-traumatic stress disorder) Insomnia Bipolar 1 disorder Hyperlipidemia Sleep apnea with use of continuous positive airway pressure (CPAP) Plantar fasciitis of right foot Hypovitaminosis D Pure hypercholesterolemia Moderately severe recurrent major depression Morbid obesity Change in bowel habit All medications reviewed Anxiety and depression High cholesterol Gastric ulcer Carpal tunnel syndrome De Quervain's disease (radial styloid tenosynovitis) Asthma Type 2 diabetes mellitus Surgical History Hx of breast reduction, elective History of weight loss surgery Hx of tubal ligation History of appendectomy (~2013) Family History Mother Alzheimers disease Father Alzheimers disease Diabetes Parkinson disease Mother Alzheimers disease Osteoarthritis Rheumatoid arthritis Sister Mental disability Sister Cirrhosis Son Cirrhosis, Onset Age: 43 Substance use disorder Social History Household Members: Spouse Housing: House Are you a primary family day carer to a significant other at home: No Do you presently have visiting nurse or other home services: No Alcohol intake: never Patient Tobacco Use Status: Never used Tobacco e-Cigarette/Vaping Use: Never Used Second Hand Smoke Exposure: No service: No Current occupational status: disabled Current occupation: right handed Cognitive needs: No Hearing needs: No Vision needs: No Questionnaire PHQ-9 Over the last 2 weeks, how often have you been bothered by any of the following problems? 1. Little interest or pleasure in doing things: several days 2. Feeling down, depressed, or hopeless: more than half the days 3. Trouble falling or staying asleep, or sleeping too much: nearly every day 4. Feeling tired or having little energy: nearly every day 5. Poor appetite or overeating: not at all 6. Feeling bad about yourself - or that you are a failure or have let yourself or your family down: more than half the days 7. Trouble concentrating on things, such as reading the newspaper or watching television: several days 8. Moving or speaking so slowly that other people could have noticed. Or the opposite - being so fidgety or restless that you have been moving around a lot more than usual: several days 9. Thoughts that you would be better off or of hurting yourself in some way: not at all Total score: 13 Depression Screening Interpretation: Positive Depression Screening Follow-up: Existing condition, In treatment, Community Mental Health Worker F/U and Follow- up Visit Requested Depression Screening Done: Yes 27151 - PHQ-9 Billing: Yes Source: Developed by Drs. Maynor Grady, Catherine Ricci, Srinivasan Sam and colleagues, with an educational lavell from [employer]. Thrive Questionnaire Date Thrive assessed: 12/15/24 I am a: Patient What is your living situation today?: I have a steady place to live Within the past 12 months, did the food you bought not last and you didn't have the money to get more?: Sometimes True Within the past 12 months, did you worry whether your food would run out before you got money to buy more?: Sometimes True Do you have trouble paying for medicines?: No Do you have trouble getting transportation to medical appointments?: Yes Do you have trouble paying your heating and electricity bill?: Yes Do you have trouble taking care of your child, family member or friend?: Yes Do you have trouble with day-to-day activities such as bathing, preparing meals, shopping, managing finances, etc.?: I choose not to answer this question Are you currently unemployed and looking for a job?: No Are you interested in more education?: No Please select the resources that you would like help with: None Currently or been in a relationship where the following occur: No concerns reported THRIVE Score: 4 AUDIT C Alcohol Use Questionnaire (AUDIT-C) 1. How often do you have a drink containing alcohol?: Never Total Score: 0 Score Reviewed/Action Taken: No OCTAVIO-7 AMB Questionnaire OCTAVIO-7 Date OCTAVIO - 7 assessed: 12/15/24 Feeling nervous, anxious, or on edge: 3 = Nearly every day Not being able to stop or control worryin = Several days Worrying too much about different things: 3 = Nearly every day Trouble relaxin = Several days Being so restless that it is hard to sit still: 1 = Several days Becoming easily annoyed or irritable: 3 = Nearly every day Feeling afraid as if something awful might happen: 2 = More than half the days Total OCTAVIO-7 score (0-4 normal; 5-9 mild; 10-14 moderate; 15-21 severe): 14 Source: Developed by Drs. Maynor Grady, Catherine Ricci, Srinivasan Sam and colleagues, with an educational lavell from [employer]. OCTAVIO-7 Assessment Billing OCTAVIO-7 Assessment Tool: OCTAVIO-7 Assessment 11348 Review of Systems Const All systems reviewed & are unremarkable except as noted in HPI and below Card Denies chest pain at rest, Denies chest pain with activity, Denies edema, Denies irregular heart rhythm, Denies claudication, Denies orthopnea, Denies paroxysmal nocturnal dyspnea and Denies slow heart rate Physical exam (Primary Care) Vital Signs: Last Vital Signs BP 128/82 12/15/24 15:34 BMI result Body Mass Index 30.7 BMI Assessment/Plan discussion: High BMI High, discussed plan: lifestyle, weight reduction, dietary and physical activity Tobacco/Smoking Status: Tobacco use Status Tobacco use date assessed 12/15/24 12/15/24 15:40 Patient Tobacco Use Status Never used Tobacco 12/15/24 15:32 e-Cigarette/Vaping Use Never Used 12/15/24 15:32 PHQ-9: PHQ-9 Score PHQ-9: Total score 13 12/15/24 15:40 Depression Screening Interpretation: Positive Depression Screening Follow-up: Existing condition, In treatment, Community Mental Health Worker F/U and Follow- up Visit Requested Thrive Assessment: Date of Thrive Assessment Date Thrive assessed 12/15/24 12/15/24 15:32 Currently or been in a relationship where the following occur: No concerns repo rted Resp Effort & Inspection: normal respiratory effort Auscultation: clear to auscultation bilaterally Cardio Jugular venous distension: no JVD Rate: regular rate Rhythm: regular rhythm Heart sounds: S1 normal heart sound present and S2 normal heart sound present Extrem General: Yes full ROM Results AMB Hemoglobin A1c AMB Hemoglobin A1c 6.3 % Last Edit by INDY Mandel on 12/15/24 15:4 1 Results Reviewed Results Reviewed: Laboratory Last Values Hgb A1c (Clinic) 6.3 % (4.0-6.0) H 12/15/24 15:31 Coding Level of Care Code Est Pt Level 4 (95809) Complex EM visit Add On G2211 Diagnoses Moderate recurrent major depression F33.1 Thoracic spine pain M54.6 Chronic idiopathic constipation K59.04 Constipation type: chronic idiopathic constipation Hyperlipidemia E78.5 Insomnia G47.00 OCTAVIO (generalized anxiety disorder) F41.1 Type 2 diabetes mellitus without complication, without long-term current use of insulin E11.9 Diabetes mellitus terminal makeup operator insulin use: without terminal makeup operator use Diabetes mellitus complication status: without complication Additional Codes PHQ-9 - 75396 - PHQ-9 Billing: Yes ([id number]) OCTAVIO-7 Assessment Billing - OCTAVIO-7 Assessment Tool: OCTAVIO-7 Assessment 81844 ( [id number]) Time Spent (min) 22 Assessment & Plan Assessment & Plan (1) Moderate recurrent major depression: Code(s): F33.1 - Major depressive disorder, recurrent, moderate Category: Medical (2) Thoracic spine pain: Code(s): M54.6 - Pain in thoracic spine Category: Medical (3) Constipation: Code(s): K59.00 - Constipation, unspecified Category: Medical Qualifiers: Constipation type: chronic idiopathic constipation Qualified Code(s): K59.04 - Chronic idiopathic constipation (4) Hyperlipidemia: Code(s): E78.5 - Hyperlipidemia, unspecified Category: Medical (5) Insomnia: Code(s): G47.00 - Insomnia, unspecified Category: Medical (6) OCTAVIO (generalized anxiety disorder): Code(s): F41.1 - Generalized anxiety disorder Category: Medical (7) Type 2 diabetes mellitus: Code(s): E11.9 - Type 2 diabetes mellitus without complications Category: Medical Qualifiers: Diabetes mellitus mcfp insulin use: without terminal makeup operator use Diabetes mellitus complication status: without complication Qualified Code(s): E11.9 - Type 2 diabetes mellitus without complications Plan Continuation of current medication regimen for diabetes and hyperlipidemia is advised due to successful management demonstrated by laboratory results. Psychiatric care for depression and anxiety remains crucial, involving evaluation and management of her stress-triggered thoracic pain. Imaging will be pursued to investigate thoracic pain. Dietary adjustments recommended to address constipation. Patient was informed and verbally consented to the use of an ambient scribe for clinic note documentation during this visit. I advised imaging studies for the thoracic pain, considering her recent psychological stress may exacerbate musculoskeletal discomfort. We discussed constipation management via increased dietary fiber and use of lactulose or MiraLax as necessary. We also talked about the importance of maintaining regular follow-up to handle psychiatric concerns. Acknowledged her vitamin D level and opted to observe. Orders: Orders AMB Hemoglobin A1c Today E11.9 - Type 2 diabetes mellitus without complications XR thoracic spine 2V Today M54.6 - Pain in thoracic spine Referrals Pain Management Referral M54.6 - Pain in thoracic spine Patient Instructions: - Continue medications as prescribed for diabetes, hyperlipidemia, and psychiatric management. - Follow dietary recommendations to manage constipation; use laxatives as needed. - Continue psychiatric follow-up. - Report any new or worsening symptoms immediately. - Return for routine follow-up and when imaging results are available.
[2024-12-15 15:34] VITALS: BP 128/82; BMI 30.7
--- OUTSIDE RECORDS SUMMARY | 2024-12-15 17:25 | XMS_ITS | Clinical Summary ---
Author Organization [facility] Address [address] [place] [address] Phone Care Team Providers Care Patient Services Specialist Name Role Phone Aniya Hillman MD Primary Care Provider [phone] Encounters Date Type Department Care Team Description 11/15/2024 9:04 AM EST - 11/15/2024 11:59 PM EST Hospital [facility] [address] [id number] Encounter for screening mammogram for malignant neoplasm of breast Discharge Disposition: Home or Self Care from Last 3 Months Surgical History Surgery Date Site/Laterality Comments APPENDECTOMY PROCEDURE: LAPAROSCOPIC APPENDECTOMY APPENDECTOMY PROCEDURE: HISTORICAL APPENDECTOMY TUBAL LIGATION PROCEDURE: HISTORICAL TUBAL LIGATION DE BREAST REDUCTION Bilateral 2023 Medical History Medical History Date Comments PUD (peptic ulcer disease) DX:PU D (peptic ulcer disease) DM (diabetes mellitus) ([facility]) DX:DM (diabetes mellitus) ([facility]) Hyperlipidemia DX:Hyperlipidemi a HTN (hypertension) DX:HTN (hyper tension) Depression DX:Depression [place] (obstructive sleep apnea) DX :[place] (obstructive sleep apnea) Family History Medical History Relation Name Comments Alzheimer's disease Father Depression Father Parkinson's Disease Father Alzheimer's disease Mother Diabetes Mother Hyperlipidemia Mother Relation Name Status Comments Father Mother Social History Tobacco Use Types Packs/Day Years Used Date Smoking Tobacco: Never Smokeless Tobacco: Never Alcohol Use Standard Drinks/Week Comments No 0 (1 standard drink = 0.6 oz pur e alcohol) Comments No Sex and Gender Information Value Date Recorded Sex Assigned at Female 11/08/2024 1:39 PM EST Legal Sex Female 10:21 AM EST Gender Identity Female 11/08/2024 1:39 PM EST Sexual Orientation Not on file Obstetrics History Para Term AB IAB SAB Ectopic Multiple Livin g Live Births 2 Last Filed Vital Signs Vital Sign Reading Time Taken Comments Blood Pressure - - Pulse - - Temperature - - Respiratory Rate - - Oxygen Saturation - - Inhaled Oxygen Concentration - - Weight 83 kg (183 lb) 11/15/2024 9:10 AM EST Height 157.5 cm (5' 2 ) 11/15/2024 9:10 AM EST Body Mass Index 33.47 11/15/2024 9:10 AM EST Plan of Treatment Health Maintenance Due Date Last Done Comments Diabetes: Annual GFR (Glomerular Filtration Rate) 1964 Diabetes: Annual Foot Exam 1974 Diabetes: Annual Retina Eye Exam 1974 Hepatitis B Vaccines (1 of 3 - 19+ 3-dose series) 12/11/1983 Cervical Cancer Screening: Pap Smear 1985 Zoster Vaccines (1 of 2) 2014 Pneumococcal Vaccine: 50+ Years (2 of 2 - PCV) 06/28/2017 06/28/2016 DTaP,Tdap,and Td Vaccines (2 - Td or Tdap) 06/26/2019 06/26/2009 Cholesterol Screening (Lipid Panel) 08/27/2022 Colorectal Cancer Screening: Colonoscopy 08/27/2022 Depression Screening 08/27/2022 HIV Screening 08/27/2022 Hepatitis C Screening 08/27/2022 Medicare Annual Wellness Visit 08/27/2022 Social Influencers of Health Screening 08/27/2022 Diabetes: Annual Urine Albumin-Creatinine Ratio (uACR) 09/13/2022 Diabetes: Blood Sugar Control Test (HGBA1C) 09/13/2022 Hypertension/CHF/CAD Annual BMP Blood Test 09/13/2022 COVID-19 Vaccine ( season) 2024 Breast Cancer Screening 11/15/2026 11/15/19, 01/31/2023, 01/28/2022, Additional history exists RSV Immunization Patients 60+ Years Old (1 - 1-dose 75+ series) 12/11/2039 Pneumococcal Vaccine: Pediatrics (0 to 5 Years) and At-Risk Patients (6 to 64 Years) Aged Out 06/28/2016 No longer eligible based on patient's age to complete this topic Influenza Vaccine Completed 08/02/2024 HIB Vaccines Aged Out No longer eligi ble based on patient's age to complete this topic HPV Vaccines Aged Out No longer eligi ble based on patient's age to complete this topic Hepatitis A Vaccines Aged Out No long er eligible based on patient's age to complete this topic IPV Vaccines Aged Out No longer eligi ble based on patient's age to complete this topic MMR Vaccines Aged Out No longer eligi ble based on patient's age to complete this topic Meningococcal ACWY Vaccine Aged Out N o longer eligible based on patient's age to complete this topic Meningococcal B Vacine Aged Out No lo nger eligible based on patient's age to complete this topic RSV Immunization Patients Under 20 months Aged Out No longer eligible based on patient's age to complete this topic Varicella Vaccines Aged Out No longer eligible based on patient's age to complete this topic Procedures Procedure Name Priority Date/Time Associated Diagnosis Comments MG MAMMO DIGITAL SCREENING W RUTH ANN BILAT Routine 11/15/2024 9:18 AM EST Encounter for screening mammogram for malignant neoplasm of breast from Last 3 Months Results * MG Mammo Digital Screening w Ruth Ann bilat (11/15/2024 9:18 AM EST) Anatomical Region Laterality Modality Breast Bilateral Mammography 11/15/2024 10:1 4 AM EST Impressions 11/15/2024 10:15 AM EST 1. No mammographic evidence of malignancy is seen. 2. Interim reduction mammoplasty. A negative mammogram in the presence of a clinically suspicious palpable abnormality does not preclude the possibility of malignancy or alter the indications for biopsy. BI-RADS CATEGORY: 2 - BENIGN RECOMMENDATION: Screening bilateral mammogram is recommended in 1 year. Mammo Location: [facility], [address] [place] [address], [address], . -------- FINAL REPORT -------- Dictated By: Echo Bradley Dictated Date: 11/15/2024 10:14 ET Assigned Physician: Echo Bradley Reviewed and Electronically Signed By: Echo Bradley Signed Date: 11/15/2024 10:15 ET Workstation ID: [id number] Transcribed By: Self Edit Transcribed Date: 11/15/2024 10:14 ET Narrative 11/15/2024 10:15 AM EST HISTORY: Screening. Reduction mammoplasty in 2023. COMPARISON: 01/31/23, 01/28/22, 01/24/21 ?? TECHNIQUE: Bilateral digital breast tomosynthesis was performed in the CC and MLO projections. Computer aided detection with [employer] AI 3D 3.1 was employed. BREAST DENSITY: B - There are scattered areas of fibroglandular density. FINDINGS: Reduction mammoplasty sequelae are new from the previous study. No suspicious masses, grouped microcalcifications, or areas of architectural distortion are seen. The skin and vascularity are unremarkable. Procedure Note Echo Bradley MD - 11/15/2024 HISTORY: Screening. Reduction mammoplasty in 2023. COMPARISON: 01/31/23, 01/28/22, 01/24/21 TECHNIQUE: Bilateral digital breast tomosynthesis was performed in the CCand MLO projections. Computer aided detection with [employer] AI 3D 3.1was employed. BREAST DENSITY: B - There are scattered areas of fibroglandular density. FINDINGS: Reduction mammoplasty sequelae are new from the previous study. No suspicious masses, grouped microcalcifications, or areas ofarchitectural distortion are seen. The skin and vascularity areunremarkable. IMPRESSION: 1. No mammographic evidence of malignancy is seen. 2. Interim reduction mammoplasty. A negative mammogram in the presence of a clinically suspicious palpableabnormality does not preclude the possibility of malignancy or alter theindications for biopsy. BI-RADS CATEGORY: 2 - BENIGN RECOMMENDATION: Screening bilateral mammogram is recommended in 1 year. Mammo Location: [facility], [address] [place] [address], [id number], . -------- FINAL REPORT -------- Dictated By: Echo Bradley Dictated Date: 11/15/2024 10:14 ET Assigned Physician: Echo Bradley Reviewed and Electronically Signed By: Echo Bradley Signed Date: 11/15/2024 10:15 ET Workstation ID: [id number] Transcribed By: Self Edit Transcribed Date: 11/15/2024 10:14 ET Aniya Hillman MD IMG BI PROCEDURES Final Result from Last 3 Months Insurance [employer] [facility] [address] [address] Member Subscriber Plan / Payer (Ef fective 2018-Present) Name:Katlin Bonilla Relation to Subscriber:Self Name:Katlin Bonilla Payer ID:[id number] Group ID:[id number] Type:Not on file Address: [address] [place] [id number] Care Teams Patient Services Specialist Relationship Specialty Start Date End Date Aniya Hillman MD [address] [place] [address] , [address] [facility] Phys[facility] D/B/A: [facility] SHONA Worrell PCP - General Internal Medicine 11/08/24
--- OUTSIDE RECORDS SUMMARY | 2024-12-15 17:25 | XMS_ITS | Encounter Summary ---
Author Organization [facility] Address [address] [place] [address] Care Team Providers Care Metallurgical Engineer Name Role Phone Aniya Hillman MD Primary Care Provider [phone] Reason for Referral * Imaging (Routine) - Pending Review Specialty Diagnoses / Procedures Referred By Billy morataya Referred To Contact Radiology Diagnoses Encounter for screening mammogram for malignant neoplasm of breast Procedures MG Mammo Digital Screening w Aniya Puga MD [address] [place] [address] , [address] [facility] D/B/A: [facility] [place], [place] Phone: tel: fax: [facility] Referral ID Status Reason Start Date Expiration Date V isits Requested Visits Authorized [id number] Pending Review 11/08/2024 11/08/2025 1 1 Reason for Visit * Imaging (Routine) - Pending Review Specialty Diagnoses / Procedures Referred By Billy morataya Referred To Contact Radiology Diagnoses Encounter for screening mammogram for malignant neoplasm of breast Procedures MG Mammo Digital Screening w Aniya Puga MD [address] [place] [address] , [address] [facility] D/B/A: [facility] [place], [place] Phone: tel: fax: [facility] Referral ID Status Reason Start Date Expiration Date V isits Requested Visits Authorized [id number] Pending Review 11/08/2024 11/08/2025 1 1 Encounter Details Date Type Department Care Team (Latest Contact Info) Description 11/15/2024 9:04 AM EST - 11/15/2024 11:59 PM EST [facility] [address] [address] Encounter for screening mammogram for malignant neoplasm of breast Discharge Disposition: Home or Self Care Social History Tobacco Use Types Packs/Day Years [...] PM EST Sexual Orientation Not on file documented as of this encounter Last Filed Vital Signs Vital Sign Reading Time Taken Comments Blood Pressure - - Pulse - - Temperature - - Respiratory Rate - - Oxygen Saturation - - Inhaled Oxygen Concentration - - Weight 83 kg (183 lb) 11/15/2024 9:10 AM EST Height 157.5 cm (5' 2 ) 11/15/2024 9:10 AM EST Body Mass Index 33.47 11/15/2024 9:10 AM EST documented in this encounter Discharge Disposition Disposition Code Departure Means Destination Home or Self Care documented in this encounter Plan of Treatment Not on file documented as of this encounter Procedures Procedure Name Priority Date/Time Associated Diagnosis Comments MG MAMMO DIGITAL SCREENING W RUTH ANN BILAT Routine 11/15/2024 9:18 AM EST Encounter for screening mammogram for malignant neoplasm of breast documented in this encounter Results * MG Mammo Digital Screening w [...] year. Mammo Location: [facility], [address] [place] [address], [address], . -------- FINAL REPORT -------- Dictated By: Echo Bradley Dictated Date: 11/15/2024 10:14 ET Assigned Physician: Echo Bradley Reviewed and Electronically Signed By: Echo Bradley Signed Date: 11/15/2024 10:15 ET Workstation ID: [id number] Transcribed By: Self Edit Transcribed Date: 11/15/2024 10:14 ET Narrative 11/15/2024 10:15 AM EST HISTORY: Screening. Reduction mammoplasty in 2023. COMPARISON: 01/31/23, 01/28/22, 01/24/21 ?? TECHNIQUE: Bilateral digital breast tomosynthesis was performed in the CC and MLO projections. Computer aided detection with [employer] AI 3D 3.1 was employed. BREAST DENSITY: [...] CCand MLO projections. Computer aided detection with [employer] AI 3D 3.1was employed. BREAST DENSITY: B [...] year. Mammo Location: [facility], [address] [place] [address], [address], . -------- FINAL REPORT -------- Dictated By: Echo Bradley Dictated Date: 11/15/2024 10:14 ET Assigned Physician: Echo Bradley Reviewed and Electronically Signed By: Echo Bradley Signed Date: 11/15/2024 10:15 ET Workstation ID: [id number] Transcribed By: Self Edit Transcribed Date: 11/15/2024 10:14 ET us Aniya Hillman MD IMG BI PROCEDURES Final Result documented in this encounter Visit Diagnoses Diagnosis Encounter for screening mammogram for malignant neoplasm of breast documented in this encounter Care Teams Metallurgical Engineer Relationship Specialty Start Date End Date Aniya Hillman MD [address] [place] [address] , [address] [facility] D/B/A: [facility] SHONA Worrell PCP - General Internal Medicine 11/08/24 documented as of this encounter
== END 2024-12-15 15:59 | disposition home or self-care (01) ==
LOC: HO.HMCH 15:27
PROVIDERS: PCP Internal Medicine; Visit Provider Internal Medicine
DX: E11.9 Type 2 diabetes mellitus without complications (principal); F33.1 Major depressive disorder, recurrent, moderate; M54.6 Pain in thoracic spine; K59.04 Chronic idiopathic constipation; E78.5 Hyperlipidemia, unspecified; G47.00 Insomnia, unspecified; F41.1 Generalized anxiety disorder

== ENCOUNTER → 2024-12-15 15:26 | Outpatient (BNVA) | payer OTHER, SELFPAY | PROVIDERS: PCP Internal Medicine; Visit Provider Internal Medicine | DX: F33.1 Major depressive disorder, recurrent, moderate (principal); M54.6 Pain in thoracic spine; K59.04 Chronic idiopathic constipation; E78.5 Hyperlipidemia, unspecified; G47.00 Insomnia, unspecified; F41.1 Generalized anxiety disorder; E11.9 Type 2 diabetes mellitus without complications | CPT/HCPCS: 83036; 96127; 99212 ==

== ENCOUNTER 2025-01-03 13:27 | Outpatient (AMB) | payer OTHER, SELFPAY ==
--- NOTE | 2025-01-03 13:29 | A.OFFVIS_ITS ---
Vital Signs 01/03/25 13:34 Height 5 ft 2 in Weight 193 lb 6 oz BMI 35.4 BP 144/81 H Blood Pressure Location Rt brachial Position Sitting Pulse 60 Pulse Source Pulse Oximeter Pulse Oximetry (%) 99 Oxygen Delivery Method Room Air Intake Visit Reasons: Pain in thoracic spine Intake Note: Pain today 3/10 Carpenters Helper Required: No Accompanied by: Self / Same As Patient Allergies penicillin V Allergy (Intermediate, Verified 12/15/24 15:48) Hives HPI HPI Pain in thoracic spine: Details: The patient is a 59-year-old female presenting with mid and low back pain. Her primary complaint is localized pain between the shoulder blades, which has been present for approximately six weeks. The pain flares up intermittently, reaching severe levels occasionally, although she reports her current pain level as mild at 3/10. No inciting injury was noted. She historically has had increased pain linked to stress following her son's last year, at which time she was receiving medications for pain relief and psychiatric support. She has undergone bariatric surgery in 2019 and breast reduction surgery in 2023, noting initial pain relief following these surgical interventions. Patient also reports inte rmittent bilateral shoulder pain, worse on the right which increases with lifting or carrying activities. She manages type 2 diabetes with an A1c level controlled at 6.3. The patient has not engaged in prior physical therapy or interventional pain management strategies but uses a walker during severe pain episodes. Previously, she has not responded well to treatments such as Tylenol, ibuprofen, or cyclobenzaprine. Denies previous spine or joint injections or surgery. - Onset and Timing: Present for one and a half months, chronic pain in neck and lower back. - Quality and Character: Intermittent, shooting, jumping, aching, pulling, squeezing, occasionally feeling frozen in shoulders. - Location: Mid back, between shoulder blades, extending to neck and shoulders. - Exacerbating Factors: Walking, lifting, sleeping, prolonged sitting or standing. - Relieving Factors: None reported that are significant. - Interference: Limited mobility, disturbed sleep. - Affect: Increased stress levels reported; anxiety and depression managed by Psychiatry. - Analgesia: Current pain level at 3/10; occasional exacerbation to 10/10. Medications include Tylenol, Ibuprofen (rarely), and cyclobenzaprine, which have been ineffective. - Adverse Effects: Cyclobenzaprine causes drowsiness, does not effectively relieve pain. - Activities of Daily Living: Pain affects walking and sleep, requiring a walker for severe pain management. - Aberrant Drug Related Behaviors: None reported. 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 PTSD (post-traumatic stress disorder) Insomnia Bipolar 1 disorder Hyperlipidemia Sleep apnea with use of continuous positive airway pressure (CPAP) Plantar fasciitis of right foot Hypovitaminosis D Pure hypercholesterolemia Moderately severe recurrent major depression Morbid obesity Change in bowel habit All medications reviewed Anxiety and depression High cholesterol Gastric ulcer Carpal tunnel syndrome De Quervain's disease (radial styloid tenosynovitis) Asthma Type 2 diabetes mellitus Surgical History Hx of breast reduction, elective History of weight loss surgery Hx of tubal ligation History of appendectomy (~2013) Family History Mother Alzheimers disease Father Alzheimers disease Diabetes Parkinson disease Mother Alzheimers disease Osteoarthritis Rheumatoid arthritis Sister Mental disability Sister Cirrhosis Son Cirrhosis, Onset Age: 43 Substance use disorder Social History Household Members: Spouse Housing: House Are you a primary care trainer to a significant other at home: No Do you presently have visiting nurse or other home services: No Alcohol intake: never Patient Tobacco Use Status: Never used Tobacco e-Cigarette/Vaping Use: Never Used Second Hand Smoke Exposure: No service: No Current occupational status: disabled Current occupation: right handed Cognitive needs: No Hearing needs: No Vision needs: No Review of Systems Const Details: - Cardiovascular: Denies chest pain. - Respiratory: Denies shortness of breath. - Musculoskeletal: Reports back pain, intermittent shoulder pain, right worse than left. - Neurological: Denied weakness or numbness, weakness, bladder or bowel dysfunction or saddle anesthesia. - Psychiatric: Reports anxiety, depression. Sees Psychiatrist in [place]. All systems reviewed & are unremarkable except as noted in HPI and below Physical Exam Vital Signs: Last Vital Signs Pulse 60 01/03/25 13:34 BP 144/81 H 01/03/25 13:34 Pulse Ox 99 01/03/25 13:34 Oxygen Delivery Method Room Air 01/03/25 13:34 BMI result Body Mass Index 35.4 General: Appears afebrile. Alert and oriented. Mood and affect appropriate. Follows and participates in conversation appropriately. Respiratory effort is unlabored. No cough. Able to transition from sit to stand unassisted. Ambulates with bilaterally normal heel strike and toe off. General: Yes no CVA tenderness Back/Spine/Pelvis Other: Lumbar flexion is intact and does not reproduce pain, lumbar extension reproduces mild to moderate pain. Positive facet loading bilaterally. The patient has 5/5 strength in her upper and lower extremities. Patient ambulates with normal, non-antalgic gait and rises from a seated position with mild difficulty. DTR reflexes are 1+ intact, bilaterally. Back: no CVA tenderness Cervical Spine: cervical ROM normal, cervical muscular tenderness and No Cervical spine tenderness Thoracic/Lumbar Spine: thoracic and lumbar spine normal to inspection, No Thoracic/lumbar spine scar(s), Lasegue's sign negative, straight leg raise negative bilaterally, pain with thoraco-lumbar ROM, paraspinal muscle tenderness, thoraco-lumbar ROM limited, No thoracic spinal tenderness and lumbar spinal tenderness at L4 and at L5 Sacroiliac joints: bilaterally nontender Extrem General: Yes capillary refill normal, Yes no clubbing, cyanosis or edema and Yes no calf tenderness Right upper extremity: shoulder/upper arm (Limited ROM with overhead reaches due to pain.) Details: normal to inspection and tenderness Location: of the A-C joint and over the subacromial bursa; no swelling, no ecchymosis, no crepitus and no unusual warmth Left upper extremity: shoulder/upper arm Details: inspection abnormal and normal ROM; no tenderness, no swelling, no crepitus and no unsual warmth Results Reviewed Results Reviewed: No imaging reports are available for review. Assessment & Plan Assessment & Plan (1) Chronic low back pain: Code(s): M54.50 - Low back pain, unspecified; G89.29 - Other chronic pain Category: Medical (2) Right shoulder pain: Code(s): M25.511 - Pain in right shoulder Category: Medical (3) Mid back pain: Code(s): M54.9 - Dorsalgia, unspecified Category: Medical (4) Chronic low back pain: Code(s): M54.50 - Low back pain, unspecified; G89.29 - Other chronic pain Category: Medical (5) Right shoulder pain: Code(s): M25.511 - Pain in right shoulder Category: Medical (6) Mid back pain: Code(s): M54.9 - Dorsalgia, unspecified Category: Medical Plan I will coordinate physical therapy locally to address musculoskeletal contributions to her mid back pain, while advising x-rays of her right shoulder and back. She will avoid NSAIDs due to her bariatric surgery history and mild benefit with previous use. Supplemental use of heat therapy and extra-strength Tylenol will be advised for analgesia. I will follow up after imaging completion to determine if interventional procedures are necessary. Patient will continue to work with her Psychiatric care provider to optimize her management of anxiety and depression. Monitoring of glycemic control will continue, with most recent A1C=6.3. All questions and concerns have been answered and patient agreed with the plan. Follow up for xrays/after PT and sooner as needed. Patient was informed and verbally consented to the use of an ambient scribe for clinic note documentation during this visit. Orders: Orders XR lumbar spine 4V min Today G89.29 - Other chronic pain, M54.50 - Low back pain, unspecified XR thoracic spine 2V Today M54.9 - Dorsalgia, unspecified XR shoulder RT min 2V Today M25.511 - Pain in right shoulder PT Evaluation and Treatment Today G89.29 - Other chronic pain, M25.511 - Pain in right shoulder, M54.50 - Low back pain, unspecified, M54.9 - Dorsalgia, unspecified Medications: New acetaminophen ER (Tylenol Arthritis Pain) 1,300 mg (2 x 650 mg) PO Q12H 30 days PRN 120 tabs 1RF pain G89.29 - Other chronic pain, M25.511 - Pain in right shoulder, M54.50 - Low back pain, unspecified, M54.9 - Dorsalgia, unspecified Patient Instructions: During the visit, we discussed the presence of chronic mid back pain and treatment options. I explained potential benefits and drawbacks of physical therapy to address posture and muscle conditioning. The option of interventional pain management was introduced if conservative therapies proved ineffective beyond physical rehabilitation. Imaging studies of the shoulder and back are planned to assess degree of degenerative changes and arthritis. She expressed understanding and agreement with the intended course of management, valuing a stepwise approach beginning with conservative strategies. Coordination with Psychiatric services to manage anxiety and depression symptoms was encouraged; I assured understanding of NSAID limitations post bariatric surgery. - Begin physical therapy and establish independence with home exercise program. - Complete x-rays of the right shoulder and the back as scheduled. - Use heat application and extra-strength Tylenol as needed for pain relief. - Avoid NSAIDs due to bariatric surgery history. - Monitor blood sugar levels as per diabetic care guidelines. - Follow up with Psychiatrist for ongoing management of anxiety and depression. - Await contact from [facility] regarding physical therapy scheduling. Coding Level of Care Code New Pt Level 4 (39817) Diagnoses Chronic low back pain M54.50; G89.29 Right shoulder pain M25.511 Mid back pain M54.9
[2025-01-03 13:34] VITALS: BP 144/81; PULSE 60; O2SAT 99; BMI 35.4
--- OUTSIDE RECORDS SUMMARY | 2025-01-03 16:00 | XMS_ITS | Clinical Summary ---
Author Organization [facility] Address [address] [place] [address] Phone Care Team Providers Care Systems Architecture Analyst Name Role Phone Aniya Hillman MD Primary Care Provider [phone] Encounters Date Type Department Care Team Description 11/15/2024 9:04 AM EST - 11/15/2024 11:59 PM EST [facility] [address] [address] Encounter for screening mammogram for malignant neoplasm of breast Discharge Disposition: Home or Self Care from Last 3 Months Surgical History Surgery Date Site/Laterality Comments APPENDECTOMY PROCEDURE: LAPAROSCOPIC APPENDECTOMY APPENDECTOMY PROCEDURE: HISTORICAL APPENDECTOMY TUBAL LIGATION PROCEDURE: HISTORICAL TUBAL LIGATION IA BREAST REDUCTION Bilateral 2023 Medical History Medical History Date Comments PUD (peptic ulcer disease) DX:PU D (peptic ulcer disease) DM (diabetes mellitus) ([facility]/HCC) DX:DM (diabetes mellitus) ([facility]) Hyperlipidemia DX:Hyperlipidemi a HTN (hypertension) DX:HTN [...] 1974 Diabetes: Annual Retina Eye Exam 1974 Cervical Cancer Screening: Pap Smear 1985 Zoster [...] Annual BMP Blood Test 09/13/2022 COVID-19 Vaccine (2023- season) 2024 Breast Cancer Screening 11/15/2026 11/15/19 25, 01/31/2023, 01/28/2022, Additional history exists RSV Immunization Adult Patients (1 - 1-dose 75+ series) 12/11/2039 Pneumococcal [...] patient's age to complete this topic Hepatitis B Vaccines Aged Out No long er eligible [...] age to complete this topic Meningococcal B Vaccine Aged Out No l onger eligible based on patient's age to complete [...] year. [facility]amm[facility] Location: [facility] , [address] [place] [address], [address], . -------- FINAL REPORT -------- Dictated By: Echo Bradlye Dictated Date: 11/15/2024 10:14 ET Assigned Physician: Echo Bradley Reviewed and Electronically Signed By: Echo Bradley Signed Date: 11/15/2024 10:15 ET Workstation ID: [id number] Transcribed By: Self Edit Transcribed Date: 11/15/2024 10:14 ET Narrative 11/15/2024 10:15 AM EST HISTORY: Screening. Reduction mammoplasty in 2023. COMPARISON: 01/31/23, 01/28/22, 01/24/21 ?? TECHNIQUE: Bilateral digital breast tomosynthesis was performed in the CC and MLO projections. Computer aided detection with [employer] AI 3D 3.1 was employed. BREAST DENSITY: [...] CCand MLO projections. Computer aided detection with [employer] AI 3D 3.1was employed. BREAST DENSITY: B [...] year. Mammo Location: [facility] , [address] [place] [address], [address], . -------- FINAL REPORT -------- Dictated By: Echo Bradley Dictated Date: 11/15/2024 10:14 ET Assigned Physician: Echo Bradley Reviewed and Electronically Signed By: Echo Bradley Signed Date: 11/15/2024 10:15 ET Workstation ID: [id number] Transcribed By: Self Edit Transcribed Date: 11/15/2024 10:14 ET us Aniya Hillman MD IMG BI PROCEDURES Final Result from Last 3 Months Insurance [facility] [employer] OPT[employer] Member Subscriber Plan / Payer (Ef fective 2024-Present) Name:Katlin Bonilla Relation to Subscriber:Self Name:Katlin Bonilla Payer ID:[id number] Group ID:[id number] Type:Not on file Address: [facility] [address] [address] Care Teams Systems Architecture Analyst Relationship Specialty Start Date End Date Aniya Hillman MD [address] [facility] , [address] [facility] D/B/A: [facility] SHONA Worrell PCP - General Internal Medicine 11/08/24
== END 2025-01-03 14:09 | disposition home or self-care (01) ==
LOC: HO.PMC 13:28
PROVIDERS: PCP Internal Medicine; Referring Provider Internal Medicine; Visit Provider Nurse Practitioner Family
DX: M54.50 Low back pain, unspecified (principal); G89.29 Other chronic pain; M25.511 Pain in right shoulder; M54.9 Dorsalgia, unspecified
CPT/HCPCS: 99204

== ENCOUNTER → 2025-01-03 13:27 | Outpatient (BNVA) | payer OTHER, SELFPAY | PROVIDERS: PCP Internal Medicine; Referring Provider Internal Medicine; Visit Provider Nurse Practitioner Family | DX: M54.50 Low back pain, unspecified (principal); M25.511 Pain in right shoulder; G89.29 Other chronic pain | CPT/HCPCS: 99202 ==

== ENCOUNTER 2025-01-18 10:10 | Outpatient (REF) | payer OTHER, SELFPAY ==
--- NOTE | ~2025-01-18 | XR_ITS ---
EXAMINATION: XR SHOULDER, RIGHT CLINICAL INFORMATION: M25.511 - Pain in right shoulder COMPARISON: None available. TECHNIQUE: AP external rotation, Grashey, scapular Y, and axillary views of the right shoulder. FINDINGS: Sclerosis and subchondral cyst formation along the articular surface of the acromioclavicular joint. The glenohumeral joint is intact without malalignment. Multilevel thoracic spondylosis. XR/XR shoulder RT min 2V IMPRESSION: Degenerative changes, acromioclavicular joint. Electronically signed by: Akbar Sheehan MD 01/19/2025 09:23 AM EDT
--- NOTE | ~2025-01-18 | XR_ITS ---
EXAMINATION: XR THORACIC SPINE CLINICAL INFORMATION: M54.9 - Dorsalgia, unspecified COMPARISON: None available. TECHNIQUE: 3 views of the thoracic spine were obtained. FINDINGS: Level marginal osteophyte formation and endplate sclerosis and decreased intervertebral disc height throughout the thoracic spine. S-shaped curvature. No acute cortical disruption or gross malalignment. No lytic or blastic lesions. Multiple vascular clips in the epigastric left upper quadrant abdomen region. Marginal osteophyte formation and endplate sclerosis with decreased intervertebral disc height at C5-6 and C6-7 levels. XR/XR thoracic spine 2V IMPRESSION: Multilevel spondylosis, cervical thoracic spine. No acute fracture or listhesis. Electronically signed by: Akbar Sheehan MD 01/19/2025 09:22 AM EDT
--- NOTE | ~2025-01-18 | XR_ITS ---
EXAMINATION: X-RAY LUMBAR SPINE 4 VIEWS. CLINICAL INFORMATION: Low back pain, unspecified. TECHNIQUE: AP oblique and lateral views lumbar spine. COMPARISON: None FINDINGS: Endplate sclerosis at L4-5 and L5-S1. No acute cortical disruption or malalignment. No lytic or blastic lesions. Vascular clips and sutures in the epigastric left upper quadrant abdomen region. XR/XR lumbar spine 4V min IMPRESSION: No acute fracture or listhesis. Electronically signed by: Akbar Sheehan MD 01/19/2025 09:25 AM EDT
[2025-01-18 10:25] LABS: MANUAL DIFF FLAG NO
[2025-01-18 11:19] LABS: Basophils Percent Auto 0.6 % (0-2); Eosinophils Absolute Auto 0.2 X10*3/uL (0.0-0.4); Eosinophils Percent Auto 6.3 % (0-4); Hematocrit 35.1 % (37.0-47.0); Hemoglobin 11.2 g/dl (12.0-16.0); Lymphocytes Absolute Auto 1.2 X10*3/uL (1.2-4.9); Lymphocytes Percent Auto 34.9 % (20-40); Mean Corpuscular HGB Conc 31.9 g/dl (31.0-35.0); Mean Corpuscular Hemoglobin 27.9 pg (27.0-33.0); Mean Corpuscular Volume 87.3 fL (80.0-98.0); Mean Platelet Volume 10.7 fL (9.4-12.3); Monocytes Absolute Auto 0.4 X10*3/uL (0.1-1.2); Monocytes Percent Auto 11.7 % (2-11); Neutrophils Absolute Auto 1.5 x10*3/uL (2.0-8.3); Neutrophils Percent Auto 46.5 % (45-73); Platelet Count 302 X10*3/uL (160-400); Red Blood Count 4.02 X10*6/uL (4.20-5.50); Red Cell Distribution Width 14.5 % (11.0-16.0); White Blood Count 3.3 X10*3/uL (4.8-10.8)
--- OUTSIDE RECORDS SUMMARY | 2025-01-18 11:38 | XMS_ITS | Clinical Summary ---
Author Organization [facility] Address [address] [place] [address] Phone Care Team Providers Care Bid Manager Name Role Phone Aniya Hillman MD Primary Care Provider [phone] Encounters Date Type Department Care Team Description 11/15/2024 9:04 AM EST - 11/15/2024 11:59 PM EST [facility] [address] [address] Encounter for screening mammogram for malignant neoplasm of breast Discharge Disposition: Home or Self Care from Last 3 Months Surgical History Surgery Date Site/Laterality Comments APPENDECTOMY PROCEDURE: LAPAROSCOPIC APPENDECTOMY APPENDECTOMY PROCEDURE: HISTORICAL APPENDECTOMY TUBAL LIGATION PROCEDURE: HISTORICAL TUBAL LIGATION AL BREAST REDUCTION Bilateral 2023 Medical History Medical History Date Comments PUD (peptic ulcer disease) DX:PU D (peptic ulcer disease) DM (diabetes mellitus) (CMS/ HCC V24, CMS/HCC V28) DX:DM (diabetes mellitus) ([facility]) Hyperlipidemia DX:Hyperlipidemi a HTN (hypertension) DX:HTN (hyper [...] year. Mammo Location: [facility], [address] [place] [address], [address], . -------- FINAL REPORT -------- Dictated By: Echo Bradley Dictated Date: 11/15/2024 10:14 ET Assigned Physician: Echo Bradley Reviewed and Electronically Signed By: Echo Bradley Signed Date: 11/15/2024 10:15 ET Workstation ID: [id number] Transcribed By: Self Edit Transcribed Date: 11/15/2024 10:14 ET Narrative 11/15/2024 10:15 AM EST HISTORY: Screening. Reduction mammoplasty in 2023. COMPARISON: 01/31/23, 01/28/22, 01/24/21 ?? TECHNIQUE: Bilateral digital breast tomosynthesis was performed in the CC and MLO projections. Computer aided detection with [employer] AI 3D 3.1 was employed. BREAST DENSITY: [...] CCand MLO projections. Computer aided detection with [employer] AI 3D 3.1was employed. BREAST DENSITY: B [...] year. Mammo Location: [facility], [address] [place] [address], [address], . -------- FINAL REPORT -------- Dictated By: Echo Bradley Dictated Date: 11/15/2024 10:14 ET Assigned Physician: Echo Bradley Reviewed and Electronically Signed By: Echo Bradley Signed Date: 11/15/2024 10:15 ET Workstation ID: [id number] Transcribed By: Self Edit Transcribed Date: 11/15/2024 10:14 ET us Aniya Hillman MD IMG BI PROCEDURES Final Result from Last 3 Months Insurance [facility] OPTIONS Member Subscriber Plan / Payer (Ef fective 2024-Present) Name:Katlin Bonilla Relation to Subscriber:Self Name:Katlin Bonilla Payer ID:[id number] Group ID:[id number] Type:Not on file Address: [address] [address] Care Teams Bid Manager Relationship Specialty Start Date End Date Aniya Hillman MD [address] [facility] , [address] [facility] D/B/A: [facility] SHONA Worrell PCP - General Internal Medicine 11/08/24
[2025-01-18 12:13] LABS: Alanine Aminotransferase 28 U/L (0-31); Albumin Level 4.1 g/dL (3.5-5.0); Alkaline Phosphatase 103 U/L (39-117); Anion Gap 10 (12-20); Aspartate Amino Transferase 32 U/L (5-31); Bilirubin Total 0.6 mg/dL (0.0-1.0); Blood Urea Nitrogen 17 mg/dL (9-16); Carbon Dioxide 30 mmol/L (22-29); Chloride 108 mmol/L (96-108); Cholesterol 147 mg/dL (<200); Estimated Glomerular Filt Rate > 60; Glucose Fasting 95 mg/dL (60-99); HDL Cholesterol 68 mg/dL (>40); LDL Cholesterol Calculated 70 mg/dL (<100); Potassium 3.8 mmol/L (3.3-5.1); Sodium 144 mmol/L (135-145); Total Protein 6.9 g/dL (6.5-8.0); Triglycerides 48 mg/dL (<150)
[2025-01-18 12:27] LABS: Creatinine Urine 120.84 mg/dL; Microalbum/Creatinine Ratio Ur 13.2 ug/mg cr (<30)
== END 2025-01-18 10:11 | disposition home or self-care (01) ==
LOC: HO.LAB 10:10
PROVIDERS: Absent Provider Nurse Practitioner Family; PCP Internal Medicine; Visit Provider Internal Medicine
DX: M54.50 Low back pain, unspecified (principal); G89.29 Other chronic pain; M25.511 Pain in right shoulder; M54.9 Dorsalgia, unspecified; Z00.00 Encounter for general adult medical examination without abnormal findings; R80.9 Proteinuria, unspecified; E78.5 Hyperlipidemia, unspecified; D64.9 Anemia, unspecified
CPT/HCPCS: 36415; 72070; 72110; 73030; 80053; 80061; 82043; 82570; 85025

== ENCOUNTER → 2025-01-18 10:29 | Outpatient (BNV) | payer OTHER, SELFPAY | PROVIDERS: Absent Provider Nurse Practitioner Family; PCP Internal Medicine; Visit Provider Radiology Diagnostic Radiology | DX: M51.360 Other intervertebral disc degeneration, lumbar region with discogenic back pain only (principal); M47.893 Other spondylosis, cervicothoracic region; M19.011 Primary osteoarthritis, right shoulder | CPT/HCPCS: 72070; 72110; 73030 ==

== ENCOUNTER 2025-01-24 11:07 | Outpatient (AMB) | payer OTHER, SELFPAY ==
--- NOTE | 2025-01-24 11:10 | A.OFFVIS_ITS ---
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 The primary complaint today involves the left sided neck and right shoulder with a pain intensity of 3/10. This discomfort is aggravated by head and neck movements, particularly when looking down. She reports increased pain in right shoulder with overhead reaching activities. Physical therapy has been employed to manage symptoms, yielding temporary and good relief; however, pain recurs once sessions cease. She is actively undergoing therapy at [facility], attending sessions twice a week. The patient experiences joint stiffness commonly upon waking, with a concern for limited mobility in the hands and other joints due to her arthritis. While the therapy has been beneficial, she is evaluating the potential effectiveness of more interventional measures, including injections for longer-term relief. Denies any recent cough, cold, infection, fever or other significant changes in medical history since last office visit. Denies any changes to medications, medical history or recent hospitalizations. - Affect: The patient finds the temporary nature of relief from therapy frustrating. - Analgesia: Current pain level at 3/10; goals for future interventions are to maintain the low pain level for extended periods. - Adverse Effects: None from current management but concern about potential effects of steroid injections. - Activities of Daily Living: Pain limits movement, though therapy helps improve function temporarily. - Aberrant Drug Related Behaviors: None reported or discussed. PRIOR: The patient is a 59-year-old female presenting with mid and low back pain. Her primary complaint is localized pain between the shoulder blades, which has been present for approximately six weeks. The pain flares up intermittently, reaching severe levels occasionally, although she reports her current pain level as mild at 3/10. No inciting injury was noted. She historically has had increased pain linked to stress following her son's last year, at which time she was receiving medications for pain relief and psychiatric support. She has undergone bariatric surgery in 2019 and breast reduction surgery in 2023, noting initial pain relief following these surgical interventions. Patient also reports intermi ttent bilateral shoulder pain, worse on the right which increases with lifting or carrying activities. She manages type 2 diabetes with an A1c level controlled at 6.3. The patient has not engaged in prior physical therapy or interventional pain management strategies but uses a walker during severe pain episodes. Previously, she has not responded well to treatments such as Tylenol, ibuprofen, or cyclobenzaprine. Denies previous spine or joint injections or surgery. - Onset and Timing: Present for one and a half months, chronic pain in neck and lower back. - Quality and Character: Intermittent, shooting, jumping, aching, pulling, squeezing, occasionally feeling frozen in shoulders. - Location: Mid back, between shoulder blades, extending to neck and shoulders. - Exacerbating Factors: Walking, lifting, sleeping, prolonged sitting or standing. - Relieving Factors: None reported that are significant. - Interference: Limited mobility, disturbed sleep. - Affect: Increased stress levels reported; anxiety and depression managed by Psychiatry. - Analgesia: Current pain level at 3/10; occasional exacerbation to 10/10. Medications include Tylenol, Ibuprofen (rarely), and cyclobenzaprine, which have been ineffective. - Adverse Effects: Cyclobenzaprine causes drowsiness, does not effectively relieve pain. - Activities of Daily Living: Pain affects walking and sleep, requiring a walker for severe pain management. - Aberrant Drug Related Behaviors: None reported. [facility] Medical History Moderate recurrent major depression Macromastia History of gastrectomy Steatosis, liver Presence of dental bridge Hx of head injury Migraines Hx of cardiac murmur Patient is Christian PTSD (post-traumatic stress disorder) Insomnia Bipolar 1 disorder Hyperlipidemia Sleep apnea with use of continuous positive airway pressure (CPAP) Plantar fasciitis of right foot Hypovitaminosis D Pure hypercholesterolemia Moderately severe recurrent major depression Morbid obesity Change in bowel habit All medications reviewed Anxiety and depression High cholesterol Gastric ulcer Carpal tunnel syndrome De Quervain's disease (radial styloid tenosynovitis) Asthma Type 2 diabetes mellitus Surgical History Hx of breast reduction, elective History of weight loss surgery Hx of tubal ligation History of appendectomy (~2013) Family History Mother Alzheimers disease Father Alzheimers disease Diabetes Parkinson disease Mother Alzheimers disease Osteoarthritis Rheumatoid arthritis Sister Mental disability Sister Cirrhosis Son Cirrhosis, Onset Age: 43 Substance use disorder Social History Household Members: Spouse Housing: House Are you a primary health care marketing manager to a significant other at home: No Do you presently have visiting nurse or other home services: No Alcohol intake: never Patient Tobacco Use Status: Never used Tobacco e-Cigarette/Vaping Use: Never Used Second Hand Smoke Exposure: No service: No Current occupational status: disabled Current occupation: right handed Cognitive needs: No Hearing needs: No Vision needs: No Review of Systems Const Details: - Musculoskeletal: Reports pain in left neck and shoulder; suggests morning stiffness and reduced hand movements. - Neurological: Denies any new focal neurological deficits related to the described pain. All systems reviewed & are unremarkable except as noted in HPI and below Physical Exam Vital Signs: Last Vital Signs Pulse 64 01/24/25 11:13 BP 146/85 H 01/24/25 11:13 Pulse Ox 99 01/24/25 11:13 Oxygen Delivery Method Room Air 01/24/25 11:13 BMI result Body Mass Index 34.6 General: Appears afebrile. No acute distress. Alert and oriented. Mood and affect appropriate. Follows and participates in conversation appropriately. Respiratory effort is unlabored. No cough. Able to transition from sit to stand unassisted. Ambulates with bilaterally normal heel strike and toe off. Neck Neck: Yes normal visual inspection, Yes no lymphadenopathy, Yes supple, No anterior neck swelling, Yes no JVD, No prominent supraclavicular fat pad and Yes prominent dorsocervical fat pad General: Yes no CVA tenderness Back/Spine/Pelvis Other: Lumbar flexion is intact and does not reproduce pain, lumbar extension reproduces mild to moderate pain. Positive facet loading bilaterally. The patient has 5/5 strength in her upper and lower extremities. Patient ambulates with normal, non-antalgic gait and rises from a seated position with mild difficulty. DTR reflexes are 1+ intact, bilaterally. Back: no CVA tenderness Cervical Spine: No Lhermitte's sign positive, cervical muscular tenderness, pain with cervical ROM, No Cervical spine scars present, cervical spasm, No Cervical spine tenderness and No step off deformity Thoracic/Lumbar Spine: thoracic and lumbar spine normal to inspection, No Thoracic/lumbar spine scar(s), Lasegue's sign negative, straight leg raise negative bilaterally, pain with thoraco-lumbar ROM, paraspinal muscle tenderness, thoraco-lumbar ROM limited, No thoracic spinal tenderness and lumbar spinal tenderness at L4 and at L5 Sacroiliac joints: bilaterally nontender Extrem General: Yes capillary refill normal, Yes no clubbing, cyanosis or edema and Yes no calf tenderness Right upper extremity: shoulder/upper arm (Limited ROM with overhead reaches due to pain.) Details: normal to inspection and tenderness Location: of the A-C joint and over the subacromial bursa; no swelling, no ecchymosis, no crepitus and no unusual warmth Left upper extremity: shoulder/upper arm Details: inspection abnormal and normal ROM; no tenderness, no swelling, no crepitus and no unsual warmth Results Reviewed Results Reviewed: XR THORACIC SPINE 01/18/25 CLINICAL INFORMATION: M54.9 - Dorsalgia, unspecified FINDINGS: Level marginal osteophyte formation and endplate sclerosis and decreased intervertebral disc height throughout the thoracic spine. S-shaped curvature. No acute cortical disruption or gross malalignment. No lytic or blastic lesions. Multiple vascular clips in the epigastric left upper quadrant abdomen region. Marginal osteophyte formation and endplate sclerosis with decreased intervertebral disc height at C5-6 and C6-7 levels. IMPRESSION: Multilevel spondylosis, cervical thoracic spine. No acute fracture or listhesis. X-RAY LUMBAR SPINE 4 VIEWS 01/18/25 COMPARISON: None FINDINGS: Endplate sclerosis at L4-5 and L5-S1. No acute cortical disruption or malalignment. No lytic or blastic lesions. Vascular clips and sutures in the epigastric left upper quadrant abdomen region. IMPRESSION: No acute fracture or listhesis. XR SHOULDER, RIGHT 01/18/25 CLINICAL INFORMATION: M25.511 - Pain in right shoulder FINDINGS: Sclerosis and subchondral cyst formation along the articular surface of the acromioclavicular joint. The glenohumeral joint is intact without malalignment. Multilevel thoracic spondylosis. IMPRESSION: Degenerative changes, acromioclavicular joint. Assessment & Plan Assessment & Plan (1) Thoracic spine pain: Code(s): M54.6 - Pain in thoracic spine Category: Medical (2) Chronic low back pain: Code(s): M54.50 - Low back pain, unspecified; G89.29 - Other chronic pain Category: Medical (3) Right shoulder pain: Code(s): M25.511 - Pain in right shoulder Category: Medical (4) Mid back pain: Code(s): M54.9 - Dorsalgia, unspecified Category: Medical (5) Cervical spondylosis: Code(s): M47.812 - Spondylosis without myelopathy or radiculopathy, cervical region Category: Medical Plan I advised ongoing participation in physical therapy for management of the patient's cervical spondylosis, lumbar spondylosis, and shoulder arthritis, as it provides temporary relief and functional enhancement. Should symptom relief prove inadequate, steroid injections, performed with imaging guidance to reduce risks and improve precision, may be considered for about 3 months or slightly extended pain alleviation. Potential side effects and benefits were communicated effectively. I proposed lifestyle adjustments, emphasizing nutrition, weight optimization, good posture, and hydration. The patient will continue the current physical therapy at [facility] course while considering intervention should symptoms aggravate. Patient was informed and verbally consented to the use of an ambient scribe for clinic note documentation during this visit. Patient Instructions: I engaged the patient in a detailed discussion concerning her chronic pain management strategies. We explored the use of cervical and lumbar approaches with physical therapy as conservative management, yielding temporary symptom relief. Considering the advanced degeneration exhibited in diagnostic imaging, I introduced the concept of utilizing shoulder steroid injections to achieve symptomatic pain relief and function improvement. Risks associated with steroid use, including potential increases in blood sugar and blood pressure, were adequately reviewed. The patient expressed understanding regarding the potential benefits and limitations of such injections, including their repeatable nature for sustained effect. We also discussed diagnostic cervical medial branch blocks for potential RFA vs Sprint PNS trials for a more sustained pain relief for chronic neck pain, as well as shoulder pain. Encouragement was given for lifestyle modifications. We concluded with mutual agreement to continue current therapies and assess future interventions as the need arises. - Continue physical therapy sessions at [facility] as scheduled. - Maintain good posture, adequate hydration, and well balanced diet. - Consider aquatic exercise if possible. Encouraged daily physical activity. - Monitor pain levels and engage in home exercises recommended by your therapist. - Pay attention to morning stiffness; gentle exercises can alleviate symptoms. - If symptoms persist or worsen, consider consultation for potential steroid injections. Coding Level of Care Code Est Pt Level 4 (75650) Complex EM visit Add On G2211 Diagnoses Thoracic spine pain M54.6 Chronic low back pain M54.50; G89.29 Right shoulder pain M25.511 Mid back pain M54.9 Cervical spondylosis M47.812
[2025-01-24 11:13] VITALS: BP 146/85; PULSE 64; O2SAT 99; BMI 34.6
--- OUTSIDE RECORDS SUMMARY | 2025-01-24 13:24 | XMS_ITS | Clinical Summary ---
Author Organization [facility] Address [address] [place] [address] Phone Care Team Providers Care Telephonic Nurse Case Manager Name Role Phone Aniya Hillman MD Primary Care Provider [phone] Encounters Date Type Department Care Team Description 11/15/2024 9:04 AM EST - 11/15/2024 11:59 PM EST Hospital [facility] [address] [address] Encounter for screening mammogram for malignant neoplasm of breast Discharge Disposition: Home or Self Care from Last 3 Months Surgical History Surgery Date Site/Laterality Comments APPENDECTOMY PROCEDURE: LAPAROSCOPIC APPENDECTOMY APPENDECTOMY PROCEDURE: HISTORICAL APPENDECTOMY TUBAL LIGATION PROCEDURE: HISTORICAL TUBAL LIGATION [place] BREAST REDUCTION Bilateral 2023 Medical History Medical [...] year. Mammo Location: [facility] at [facility], [address] [place] [address], [address], . -------- FINAL REPORT -------- Dictated By: Echo Bradley Dictated Date: 11/15/2024 10:14 ET Assigned Physician: Echo Bradley Reviewed and Electronically Signed By: Echo Bradley Signed Date: 11/15/2024 10:15 ET Workstation ID: [id number] Transcribed By: Self Edit Transcribed Date: 11/15/2024 10:14 ET Narrative 11/15/2024 10:15 AM EST HISTORY: Screening. Reduction mammoplasty in 2023. COMPARISON: 01/31/23, 01/28/22, 01/24/21 ?? TECHNIQUE: Bilateral digital breast tomosynthesis was performed in the CC and MLO projections. Computer aided detection with [employer] AI 3D 3.1 was employed. BREAST DENSITY: [...] MLO projections. Computer aided detection with iCAD WebNotes AI 3D 3.1was employed. BREAST DENSITY: B [...] year. Mammo Location: [facility], [address] [place] [address], [address], . -------- FINAL REPORT -------- Dictated By: Echo Bradley Dictated Date: 11/15/2024 10:14 ET Assigned Physician: Echo Bradley Reviewed and Electronically Signed By: Echo Bradley Signed Date: 11/15/2024 10:15 ET Workstation ID: [id number] Transcribed By: Self Edit Transcribed Date: 11/15/2024 10:14 ET us Aniya Hillman MD IMG BI PROCEDURES Final Result from Last 3 Months Insurance [facility] [employer] Member Subscriber Plan / Payer (Ef fective 2024-Present) Name:Katlin Bonilla Relation to Subscriber:Self Name:Katlin Bonilla Payer ID:[id number] Group ID:[id number] Type:Not on file Address: [address] [address] Care Teams Telephonic Nurse Case Manager Relationship Specialty Start Date End Date Aniya Hillman MD [address] [facility] , [address] [facility] Physician Associ D/B/A: [facility] SHONA Worrell PCP - General Internal Medicine 11/08/24
== END 2025-01-24 11:54 | disposition home or self-care (01) ==
LOC: HO.PMC 11:08
PROVIDERS: PCP Internal Medicine; Visit Provider Nurse Practitioner Family
DX: M54.6 Pain in thoracic spine (principal); M54.50 Low back pain, unspecified; G89.29 Other chronic pain; M25.511 Pain in right shoulder; M54.9 Dorsalgia, unspecified; M47.812 Spondylosis without myelopathy or radiculopathy, cervical region
CPT/HCPCS: 99214; G2211

== ENCOUNTER → 2025-01-24 11:07 | Outpatient (BNVA) | payer OTHER, SELFPAY | PROVIDERS: PCP Internal Medicine; Visit Provider Nurse Practitioner Family | DX: M47.812 Spondylosis without myelopathy or radiculopathy, cervical region (principal); M25.511 Pain in right shoulder; M54.6 Pain in thoracic spine; M54.50 Low back pain, unspecified; G89.29 Other chronic pain | CPT/HCPCS: 99212 ==

== ENCOUNTER 2025-02-22 12:15 | Outpatient (REF) | payer OTHER, SELFPAY ==
[2025-02-22 15:42] LABS: Vitamin D 25-OH Total 32.7 ng/mL (>30)
[2025-02-22 15:54] LABS: Vitamin B12 886 pg/mL (200-900)
[2025-02-25 05:03] LABS: Zinc 58 mcg/dL (60-130)
[2025-02-25 15:48] LABS: Vitamin A 54 mcg/dL (38-98)
[2025-02-26 01:13] LABS: Vitamin B1 26 nmol/L (8-30)
== END 2025-02-22 12:16 | disposition home or self-care (01) ==
LOC: HO.LAB 12:15
PROVIDERS: PCP Internal Medicine; Visit Provider Physician Assistant Surgical
DX: Z98.84 Bariatric surgery status (principal); E66.9 Obesity, unspecified; R10.9 Unspecified abdominal pain
CPT/HCPCS: 36415; 82306; 82607; 82746; 84425; 84590; 84630; 99212

== ENCOUNTER 2025-02-22 12:15 | Outpatient (AMB) | payer OTHER, SELFPAY ==
--- OUTSIDE RECORDS SUMMARY | 2025-02-22 12:31 | XMS_ITS | Clinical Summary ---
Author Organization [facility] Address [address] [place] [address] Phone Care Team Providers Care Grader Patrol Name Role Phone Aniya Hillman MD Primary Care Provider [phone] Surgical History Surgery Date Site/Laterality Comments APPENDECTOMY PROCEDURE: LAPAROSCOPIC APPENDECTOMY APPENDECTOMY PROCEDURE: HISTORICAL APPENDECTOMY TUBAL LIGATION PROCEDURE: HISTORICAL TUBAL LIGATION [place] BREAST REDUCTION Bilateral 2023 Medical History Medical [...] ( season) 2024 Breast Cancer Screening 11/15/2026 11/15/19 [...] neoplasm of breast from Last 3 Months or Most Recently Relevant to Health Maintenance Results * MG Mammo Digital Screening w [...] year. Mammo Location: [facility], [address] [place] [address], [facility], . -------- FINAL REPORT -------- Dictated By: Echo Bradley Dictated Date: 11/15/2024 10:14 ET Assigned Physician: Echo Bradley Reviewed and Electronically Signed By: Echo Bradley Signed Date: 11/15/2024 10:15 ET Workstation ID: [id number] Transcribed By: Self Edit Transcribed Date: 11/15/2024 10:14 ET Narrative 11/15/2024 10:15 AM EST HISTORY: Screening. Reduction mammoplasty in 2023. COMPARISON: 01/31/23, 01/28/22, 01/24/21 ?? TECHNIQUE: Bilateral digital breast tomosynthesis was performed in the CC and MLO projections. Computer aided detection with [employer] AI 3D 3.1 was employed. BREAST DENSITY: [...] CCand MLO projections. Computer aided detection with Soft MachinesD ProFound AI 3D 3.1was employed. BREAST DENSITY: B [...] year. Mammo Location: [facility], [address] [place] [address], [address], . -------- FINAL REPORT -------- Dictated By: Echo Bradley Dictated Date: 11/15/2024 10:14 ET Assigned Physician: Echo Bradley Reviewed and Electronically Signed By: Echo Bradley Signed Date: 11/15/2024 10:15 ET Workstation ID: [id number] Transcribed By: Self Edit Transcribed Date: 11/15/2024 10:14 ET us Aniya Hillman MD IMG BI PROCEDURES Final Result from Last 3 Months or Most Recently Relevant to Health Maintenance Insurance [facility] [employer] OPT[employer] Member Subscriber Plan / Payer (Ef fective 2024-Present) Name:Katlin Bonilla Relation to Subscriber:Self Name:Katlin Bonilla Payer ID:[id number] Group ID:[id number] Type:Not on file Address: [place] [address] [address] [place] [address] Care Teams Grader Patrol Relationship Specialty Start Date End Date Aniya Hillman MD [address] [place] [address] , [address] Physician Associ D/B/A: [facility] SHONA Worrell PCP - General Internal Medicine 11/08/24
--- NOTE | 2025-02-22 12:33 | MHC.OFFVISWM ---
VS Expanded 02/22/25 12:38 BP 149/73 H Blood Pressure Location Rt brachial Blood Pressure Position Sitting Pulse 59 Pulse Source Pulse Oximeter Temp 96.4 F L Temperature Source Temporal Artery Scan Pulse Oximetry 96 Oxygen Delivery Method Room Air Height 5 ft 2 in Weight 189 lb 3.2 oz BMI 34.6 Body Fat % 38.0 Body Fat Mass 71.8 Fat Free Mass 117.2 Visceral Fat Rating 11.0 Body Water % 43.9 Body Water Mass 3.2 Muscle Mass/Score 111.4 Basal Metabolic Rate/Score 1,595 Intake Visit Reasons: (OV) PO LSG 09/06/21 Solder Sprayer Required: Yes Solder Sprayer Name: Nolan [id number] Information Interpreted: clinical only Allergies penicillin V Allergy (Intermediate, Verified 02/22/25 12:36) Hives Medication List - Last Reconciled 02/22/25 by SANDI Carbone acetaminophen ER (Tylenol Arthritis Pain) 1,300 mg (2 x 650 mg) PO Q12H PRN 30 days atorvastatin 40 mg PO BEDTIME 90 days blood sugar diagnostic (FreeStyle Test strips) Use 1 test strip once a day cetirizine (All Day Allergy (cetirizine)) 10 mg PO DAILY PRN 90 days clonazepam 1 mg PO BID cyclobenzaprine 10 mg PO BID PRN eszopiclone 3 mg PO BEDTIME fluoxetine 20 mg PO DAILY fluoxetine 0 mg PO hydroxyzine HCl 25 mg PO DAILY inulin (Fiber Gummies) 2 grams PO DAILY lactulose 10 grams (15 mL) PO BEDTIME PRN 90 days lancets (Ultra-Care Lancets) USE 1 LANCET TO TEST BLOOD SUGAR ONCE DAILY metformin 500 mg PO DAILY 90 days pantoprazole 40 mg PO DAILY polyethylene glycol 3350 17 grams PO DAILY PRN 30 days prazosin 5 mg PO BEDTIME sennosides (Senokot Extra Strength) 17.2 mg PO BID PRN simethicone (Gas Relief (simethicone)) 250 mg (2 x 125 mg) PO BID PRN 30 days sumatriptan succinate 25 mg PO Q2-4H PRN 30 days Ventolin HFA 90 mcg/actuation (albuterol sulfate) 2 puffs PO Q6H PRN NS walker (Ultra-Light Rollator misc) As directed HPI Comments Details: This?is a?59?yo F who is s/p LSG 09/06/2021. Weight gain of 9.8lbs since last OV 6mo ago. Regarding abdominal pain noted at previous visit, pt reports it is a bit better. She is still struggling with constipation, takes several medications for this. Managed by her PCP. Notes anxiety and depression which is making it hard on her weight management. Her son last year. Has not been taking the protein bar. Reports she has been eating garbage . Adds some fruit into shakes- pineapple or strawberries. She has a community therapist. Present meal plan includes: 1 Celebrate Rebuild shake with 2 scoops 1 Celebrate Rebuild shake with 1 scoop 1 Pure Protein bar 1 meal 6f/6f pt reports adequate hydration Exercise routine includes: has a walking pad in basement, likes to walk outside Pt reports some issues of excess skin of abdomen. She is experiencing rashes which are itchy. Was given a topical cream by PCP. She has to shower more frequently and clean the area often to try to prevent rashes. Has to wear compressive garment to hold excess skin in place and prevent movement. It is hard to find clothing that fits appropriately or comfortably. [facility] Medical History Moderate recurrent major depression Macromastia History of gastrectomy Steatosis, liver Presence of dental bridge Hx of head injury Migraines Hx of cardiac murmur Patient is Mu-ism PTSD (post-traumatic stress disorder) Insomnia Bipolar 1 disorder Hyperlipidemia Sleep apnea with use of continuous positive airway pressure (CPAP) Plantar fasciitis of right foot Hypovitaminosis D Pure hypercholesterolemia Moderately severe recurrent major depression Morbid obesity Change in bowel habit All medications reviewed Anxiety and depression High cholesterol Gastric ulcer Carpal tunnel syndrome De Quervain's disease (radial styloid tenosynovitis) Asthma Type 2 diabetes mellitus Surgical History Hx of breast reduction, elective History of weight loss surgery Hx of tubal ligation History of appendectomy (~2013) Family History Mother Alzheimers disease Father Alzheimers disease Diabetes Parkinson disease Mother Alzheimers disease Osteoarthritis Rheumatoid arthritis Sister Mental disability Sister Cirrhosis Son Cirrhosis, Onset Age: 43 Substance use disorder Social History (Updated 02/22/25 @ 12:37 by Lilli Beaver CMA) Household Members: Spouse Housing: House Are you a primary medicare contact specialist to a significant other at home: No Do you presently have visiting nurse or other home services: No Alcohol intake: current Alcohol intake frequency: holidays/special occasions only Patient Tobacco Use Status: Never used Tobacco e-Cigarette/Vaping Use: Never Used Second Hand Smoke Exposure: No service: No Current occupational status: disabled Current occupation: right handed Cognitive needs: No Hearing needs: No Vision needs: No Physical Exam Vital Signs: BMI result Body Mass Index 34.6 Assessment & Plan Assessment & Plan (1) S/P laparoscopic sleeve gastrectomy: Code(s): Z98.84 - Bariatric surgery status Category: Surgical (2) Obesity: Code(s): E66.9 - Obesity, unspecified Category: Medical Plan Offered pt to restart a structured meal plan. She likes the shakes. 2 shake per day with 2 scoops, plus one meal with protein or vegetables. Gave healthy foods handout. Having issues of excess skin of abdomen resulting in itchy rashes, treating topically. Gave pt my phone # and encouraged her to reach out with any questions between appts. RTC 3mo. Orders: Orders Zinc Today Z98.84 - Bariatric surgery status Vitamin D 25-OH Total Today Z98.84 - Bariatric surgery status Vitamin A Today Z98.84 - Bariatric surgery status Vitamin B12 and Folate Today Z98.84 - Bariatric surgery status Vitamin B1 Today Z98.84 - Bariatric surgery status
[2025-02-22 12:38] VITALS: BP 149/73; PULSE 59; TEMP 35.8; O2SAT 96; BMI 34.6
== END 2025-02-22 13:13 | disposition home or self-care (01) ==
LOC: HO.HBS 12:15
PROVIDERS: PCP Internal Medicine; Visit Provider Physician Assistant Surgical
DX: E66.9 Obesity, unspecified (principal); Z68.34 Body mass index [BMI] 34.0-34.9, adult; Z90.3 Acquired absence of stomach [part of]; Z98.84 Bariatric surgery status
CPT/HCPCS: 99214; G2211

== ENCOUNTER 2025-04-22 11:08 | Outpatient (REF) | payer OTHER, SELFPAY ==
--- OUTSIDE RECORDS SUMMARY | 2025-04-22 11:16 | XMS_ITS | Clinical Summary ---
Author Organization [facility] Address [address] [place] [address] Phone Care Team Providers Care Account Supervisor Name Role Phone Aniya Hillman MD Primary Care Provider [phone] Surgical History Surgery Date Site/Laterality Comments APPENDECTOMY PROCEDURE: LAPAROSCOPIC APPENDECTOMY APPENDECTOMY PROCEDURE: HISTORICAL APPENDECTOMY TUBAL LIGATION PROCEDURE: HISTORICAL TUBAL LIGATION NE BREAST REDUCTION Bilateral 2023 Medical History Medical [...] Panel) 08/27/2022 Colorectal Cancer Screening: Colonoscopy 08/27/2022 HIV Screening 08/27/2022 Hepatitis C Screening 08/27/2022 Medicare Annual Wellness Visit 08/27/2022 Social Influencers of Health Screening 08/27/2022 Diabetes: Annual Urine Albumin-Creatinine Ratio (uACR) 09/13/2022 Diabetes: Blood Sugar Control Test (HGBA1C) 09/13/2022 Hypertension/CHF/CAD Annual BMP Blood Test 09/13/2022 COVID-19 Vaccine ( season) 2024 Depression Screening 09/29/2024 Influenza Vaccine (#1) 2025 08/02/2024 Breast Cancer Screening 11/15/2026 11/15/19, 01/31/2023, 01/28/2022, Additional history exists RSV Immunization Adult Patients (1 - 1-dose 75+ series) 12/11/2039 HIB Vaccines Aged Out No longer eligi [...] year. Mammo Location: [facility], [address] [place] [address], [address], . -------- FINAL REPORT -------- Dictated By: Echo Bradley Dictated Date: 11/15/2024 10:14 ET Assigned Physician: Echo Bradley Reviewed and Electronically Signed By: Echo Bradley Signed Date: 11/15/2024 10:15 ET Workstation ID: [id number] Transcribed By: Self Edit Transcribed Date: 11/15/2024 10:14 ET Narrative 11/15/2024 10:15 AM EST HISTORY: Screening. Reduction mammoplasty in 2023. COMPARISON: 01/31/23, 01/28/22, 01/24/21 TECHNIQUE: Bilateral digital breast tomosynthesis was performed in the CC and MLO projections. Computer aided detection with MyStream 3D 3.1 was employed. BREAST DENSITY: B [...] CCand MLO projections. Computer aided detection with MyStream 3D 3.1was employed. BREAST DENSITY: B - [...] year. Mammo Location: [facility], [address] [place] [address], [id number], . -------- FINAL REPORT -------- Dictated By: Echo Bradley Dictated Date: 11/15/2024 10:14 ET Assigned Physician: Echo Bradley Reviewed and Electronically Signed By: Echo Bradley Signed Date: 11/15/2024 10:15 ET Workstation ID: [id number] Transcribed By: Self Edit Transcribed Date: 11/15/2024 10:14 ET Aniya Hillman MD IMG BI PROCEDURES Final Result from Last 3 Months or Most Recently Relevant to Health Maintenance Insurance [employer] Member Subscriber Plan / Payer (Ef fective 2024-Present) Name:Katlin Bonilla Relation to Subscriber:Self Name:Katlin Bonilla Payer ID:[id number] Group ID:[id number] Type:Not on file Address: [place] [address] [address] [place] [id number] Care Teams Account Supervisor Relationship Specialty Start Date End Date Aniya Hillman MD [address] [facility] , [address] [place] [address] Physician Associ D/B/A: [facility] SHONA Worrell PCP - General Internal Medicine 11/08/24
[2025-04-22 11:27] LABS: MANUAL DIFF FLAG NO
[2025-04-22 11:57] LABS: Hematocrit 35.5 % (37.0-47.0); Hemoglobin 11.2 g/dl (12.0-16.0); Imm Gran Abs Auto 0.00 X10*3/uL (0.00-0.03); Imm Gran Pct Auto 0.0 % (0.0-0.4); Lymphocytes Absolute Auto 1.4 X10*3/uL (1.2-4.9); Mean Corpuscular HGB Conc 31.5 g/dl (31.0-35.0); Mean Corpuscular Hemoglobin 27.5 pg (27.0-33.0); Mean Corpuscular Volume 87.0 fL (80.0-98.0); NRBC Abs Auto 0.000 X10*3/uL (0.0-0.012); NRBC Pct Auto 0.0 /100WBC (0.0-0.2); Platelet Count 274 X10*3/uL (160-400); Red Blood Count 4.08 X10*6/uL (4.20-5.50); White Blood Count 3.8 X10*3/uL (4.8-10.8)
[2025-04-22 12:29] LABS: Alanine Aminotransferase 38 U/L (0-31); Albumin Level 4.3 g/dL (3.5-5.0); Alkaline Phosphatase 105 U/L (39-117); Anion Gap 10 (12-20); Aspartate Amino Transferase 35 U/L (5-31); Blood Urea Nitrogen 17 mg/dL (9-16); Calcium 8.9 mg/dL (8.4-10.2); Carbon Dioxide 30 mmol/L (22-29); Chloride 109 mmol/L (96-108); Cholesterol 155 mg/dL (<200); Estimated Glomerular Filt Rate > 60; HDL Cholesterol 65 mg/dL (>40); Iron 75 mcg/dL (30-160); Percent Iron Saturation 22 % (15-50); Potassium 4.0 mmol/L (3.3-5.1); Sodium 145 mmol/L (135-145); Total Iron Binding Capacity 339 mcg/dL (228-428); Total Protein 6.9 g/dL (6.5-8.0); Triglycerides 69 mg/dL (<150); Unsaturated Iron Binding 264 ug/dL
[2025-04-22 12:53] LABS: Microalbum/Creatinine Ratio Ur 11.7 ug/mg cr (<30)
[2025-04-22 12:54] LABS: Folate 13.6 ng/mL (> or = 4.0); Vitamin B12 823 pg/mL (200-900)
== END 2025-04-22 11:09 | disposition home or self-care (01) ==
LOC: HO.LAB 11:08
PROVIDERS: Absent Provider Physician Assistant Surgical; PCP Internal Medicine; Visit Provider Internal Medicine
DX: E11.9 Type 2 diabetes mellitus without complications (principal); D64.9 Anemia, unspecified; E55.9 Vitamin D deficiency, unspecified; E78.5 Hyperlipidemia, unspecified; R80.9 Proteinuria, unspecified; Z98.84 Bariatric surgery status
CPT/HCPCS: 36415; 80053; 80061; 82043; 82306; 82570; 82607; 82746; 83540; 84425; 84590; 85025

== ENCOUNTER 2025-04-25 15:34 | Outpatient (AMB) | payer OTHER, SELFPAY ==
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
[2025-04-25 15:49] VITALS: BP 132/80; BMI 34.9
--- OUTSIDE RECORDS SUMMARY | 2025-04-25 15:53 | XMS_ITS | Clinical Summary ---
Author Organization [facility] Address [address] [place] [address] Phone Care Team Providers Care Gas Plant Operator Name Role Phone Aniya Hillman MD Primary Care Provider [phone] Surgical History Surgery Date Site/Laterality Comments APPENDECTOMY PROCEDURE: LAPAROSCOPIC APPENDECTOMY APPENDECTOMY PROCEDURE: HISTORICAL APPENDECTOMY TUBAL LIGATION PROCEDURE: HISTORICAL TUBAL LIGATION IN BREAST REDUCTION Bilateral 2023 Medical History Medical [...] year. Mammo Location: [facility], [address] [place] [address], [id number], . -------- FINAL REPORT -------- Dictated By: Echo Bradley Dictated Date: 11/15/2024 10:14 ET Assigned Physician: Echo Bradley Reviewed and Electronically Signed By: Echo Bradley Signed Date: 11/15/2024 10:15 ET Workstation ID: [id number] Transcribed By: Self Edit Transcribed Date: 11/15/2024 10:14 ET Narrative 11/15/2024 10:15 AM EST HISTORY: Screening. Reduction mammoplasty in 2023. COMPARISON: 01/31/23, 01/28/22, 01/24/21 TECHNIQUE: Bilateral digital breast tomosynthesis was performed in the CC and MLO projections. Computer aided detection with [employer] 3D 3.1 was employed. BREAST DENSITY: B [...] CCand MLO projections. Computer aided detection with [employer] 3D 3.1was employed. BREAST DENSITY: B - [...] year. Mammo Location: [facility], [address] [place] [address], [id number], . -------- FINAL REPORT -------- Dictated By: Echo Bradley Dictated Date: 11/15/2024 10:14 ET Assigned Physician: Echo Bradley Reviewed and Electronically Signed By: Echo Bradley Signed Date: 11/15/2024 10:15 ET Workstation ID: [id number] Transcribed By: Self Edit Transcribed Date: 11/15/2024 10:14 ET Aniya Hillman MD IMG BI PROCEDURES Final Result from Last 3 Months or Most Recently Relevant to Health Maintenance Insurance [employer] Member Subscriber Plan / Payer (Ef fective 2024-Present) Name:Katlin Bonilla Relation to Subscriber:Self Name:Katlin Bonilla Payer ID:[id number] Group ID:[id number] Type:Not on file Address: [place] [address] [place] [address] Care Teams Gas Plant Operator Relationship Specialty Start Date End Date Aniya Hillman MD 2 [facility] , [address] [place] [address] Physician Associ D/B/A: [facility] SHONA Worrell PCP - General Internal Medicine 11/08/24
== END 2025-04-25 16:05 | disposition home or self-care (01) ==
LOC: HO.HMCH 15:35
PROVIDERS: PCP Internal Medicine; Visit Provider Internal Medicine
DX: F33.1 Major depressive disorder, recurrent, moderate (principal); F41.1 Generalized anxiety disorder; E11.9 Type 2 diabetes mellitus without complications; E78.5 Hyperlipidemia, unspecified

== ENCOUNTER → 2025-04-25 15:34 | Outpatient (BNVA) | payer OTHER, SELFPAY | PROVIDERS: PCP Internal Medicine; Visit Provider Internal Medicine | DX: E11.9 Type 2 diabetes mellitus without complications (principal); I10 Essential (primary) hypertension; E78.5 Hyperlipidemia, unspecified; F33.1 Major depressive disorder, recurrent, moderate; F41.1 Generalized anxiety disorder; K59.00 Constipation, unspecified; Z79.84 Long term (current) use of oral hypoglycemic drugs; Z79.899 Other long term (current) drug therapy | CPT/HCPCS: 83036; 96127; 99212 ==

== ENCOUNTER 2025-05-03 12:26 | Outpatient (AMB) | payer OTHER, SELFPAY ==
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
[2025-05-03 12:38] VITALS: BP 180/82; PULSE 64; TEMP 36.1; O2SAT 97; BMI 34.3
--- OUTSIDE RECORDS SUMMARY | 2025-05-03 13:01 | XMS_ITS | Clinical Summary ---
Author Organization [facility] Address [address] [place] [address] Phone Care Team Providers Care Director Distribution Name Role Phone Aniya Hillman MD Primary Care Provider [phone] Surgical History Surgery Date Site/Laterality Comments APPENDECTOMY PROCEDURE: LAPAROSCOPIC APPENDECTOMY APPENDECTOMY PROCEDURE: HISTORICAL APPENDECTOMY TUBAL LIGATION PROCEDURE: HISTORICAL TUBAL LIGATION CO BREAST REDUCTION Bilateral 2023 Medical History Medical [...] Mammo Location: [facility], [address] [place] [address], [id number], . -------- FINAL REPORT -------- Dictated By: Echo Bradley Dictated Date: 11/15/2024 10:14 ET Assigned Physician: Echo Bradley Reviewed and Electronically Signed By: Echo Bradley Signed Date: 11/15/2024 10:15 ET Workstation ID: [id number] Transcribed By: Self Edit Transcribed Date: 11/15/2024 10:14 ET Narrative 11/15/2024 10:15 AM EST HISTORY: Screening. Reduction mammoplasty in 2023. COMPARISON: 01/31/23, 01/28/22, 01/24/21 TECHNIQUE: Bilateral digital breast tomosynthesis was performed in the CC and MLO projections. Computer aided detection with [employer] 3D 3.1 was employed. BREAST DENSITY: B [...] CCand MLO projections. Computer aided detection with [employer] 3D 3.1was employed. BREAST DENSITY: B - [...] Mammo Location: [facility], [address] [place] [address], [id number], . -------- FINAL REPORT -------- Dictated By: Echo Bradley Dictated Date: 11/15/2024 10:14 ET Assigned Physician: Echo Bradley Reviewed and Electronically Signed By: Echo Bradley Signed Date: 11/15/2024 10:15 ET Workstation ID: [id number] Transcribed By: Self Edit Transcribed Date: 11/15/2024 10:14 ET Aniya Hillman MD IMG BI PROCEDURES Final Result from Last 3 Months or Most Recently Relevant to Health Maintenance Insurance [employer] Member Subscriber Plan / Payer (Ef fective 2024-Present) Name:Katlin Bonilla Relation to Subscriber:Self Name:Katlin Bonilla Payer ID:[id number] Group ID:[id number] Type:Not on file Address: [place] [address] [place] [id number] Care Teams Director Distribution Relationship Specialty Start Date End Date Aniya Hillman MD 2 [facility] , [address] [place] [address] Physician Associ D/B/A: [facility] SHONA Worrell PCP - General Internal Medicine 11/08/24
== END 2025-05-03 13:05 | disposition home or self-care (01) ==
LOC: HO.HBS 12:27
PROVIDERS: PCP Internal Medicine; Visit Provider Physician Assistant Surgical
DX: E66.9 Obesity, unspecified (principal); Z98.84 Bariatric surgery status
CPT/HCPCS: 99214; G2211

== ENCOUNTER → 2025-05-03 12:26 | Outpatient (BNVA) | payer OTHER, SELFPAY | PROVIDERS: PCP Internal Medicine; Visit Provider Physician Assistant Surgical | DX: Z98.84 Bariatric surgery status (principal); E66.9 Obesity, unspecified; R10.9 Unspecified abdominal pain | CPT/HCPCS: 99212 ==

== ENCOUNTER 2025-08-15 14:15 | Outpatient (AMB) | payer OTHER, SELFPAY ==
--- NOTE | 2025-08-15 14:40 | A.OFFPC_ITS ---
Vital Signs 08/15/25 14:42 Height 5 ft 2 in Weight 178 lb 4 oz BMI 32.6 BP 132/80 Blood Pressure Location Lt brachial Position Sitting Pulse 63 Pulse Source Pulse Oximeter Temp 97.5 F Temp Source Temporal Artery Scan Pulse Oximetry (%) 99 Oxygen Delivery Method Room Air Intake Visit Reasons: Annual Exam Intake Note: Patient is here today for a physical. Quick Technician Required: Yes Information Interpreted: non-clinical & clinical Accompanied by: Self / Same As Patient Allergies penicillin V Allergy (Intermediate, Verified 08/15/25 15:12) Hives Medication List - Last Reconciled 08/15/25 by Aniya Hillman MD acetaminophen ER (Tylenol Arthritis Pain) 1,300 mg (2 x 650 mg) PO Q12H PRN 30 days atorvastatin 40 mg PO BEDTIME 90 days blood sugar diagnostic (FreeStyle Test strips) Use 1 test strip once a day buspirone mg PO DAILY cetirizine (All Day Allergy (cetirizine)) 10 mg PO DAILY PRN 90 days cyclobenzaprine 10 mg PO BID PRN eszopiclone 3 mg PO BEDTIME fluoxetine 40 mg PO DAILY hydroxyzine HCl 25 mg PO DAILY inulin (Fiber Gummies) 2 grams PO DAILY lactulose 10 grams (15 mL) PO BEDTIME PRN 90 days lancets (Ultra-Care Lancets) USE 1 LANCET TO TEST BLOOD SUGAR ONCE DAILY metformin 500 mg PO DAILY 90 days pantoprazole 40 mg PO DAILY polyethylene glycol 3350 17 grams PO DAILY PRN 30 days prazosin 5 mg PO BEDTIME sennosides (Senokot Extra Strength) 17.2 mg PO BID PRN simethicone (Gas Relief (simethicone)) 250 mg (2 x 125 mg) PO BID PRN 30 days sumatriptan succinate 25 mg PO Q2-4H PRN 30 days tirzepatide (weight loss) (Zepbound) 5 mg (0.5 mL) subcut QWEEK Ventolin HFA 90 mcg/actuation (albuterol sulfate) 2 puffs PO Q6H PRN NS walker (Ultra-Light Rollator misc) As directed zinc gluconate 30 mg PO DAILY Tobacco use date assessed: 08/15/25 Dental Screening Dental Screen Date: 08/15/25 Was dental information given to patient?: No HPI HPI Comments History of Present Illness Details The patient is a 59-year-old female presenting for her physical exam. management of chronic conditions and preventative care. She has diabetes, with a recent A1c of 5.9, managed with metformin. She has hyperlipidemia treated with atorvastatin 40 mg, and recent cholesterol levels were good. Psychiatric history includes anxiety, depression, and nightmares, managed by psychiatry with buspirone, fluoxetine, and prazosin, respectively. She also takes esopiclone for insomnia. Other chronic conditions include allergies treated with cetirizine, acid reflux managed with pantoprazole, and constipation for which she uses lactulose and MiraLAX. The patient reports an allergy to penicillin, which causes hives. She previously had a breast reduction surgery. Her last colonoscopy was in 2020. Previous lab work showed a slight anemia, but her vitamin levels were good. Her mother had Alzheimer's disease, and her father had both Alzheimer's disease and Parkinson's disease; both are . 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 is Spiritism PTSD (post-traumatic stress disorder) Insomnia Bipolar 1 disorder Hyperlipidemia Sleep apnea with use of continuous positive airway pressure (CPAP) Plantar fasciitis of right foot Hypovitaminosis D Pure hypercholesterolemia Moderately severe recurrent major depression Morbid obesity Change in bowel habit All medications reviewed Anxiety and depression High cholesterol Gastric ulcer Carpal tunnel syndrome De Quervain's disease (radial styloid tenosynovitis) Asthma Type 2 diabetes mellitus Surgical History Hx of breast reduction, elective History of weight loss surgery Hx of tubal ligation History of appendectomy (~2013) Family History Mother Alzheimers disease Father Alzheimers disease Diabetes Parkinson disease Mother Alzheimers disease Osteoarthritis Rheumatoid arthritis Sister Mental disability Sister Cirrhosis Son Cirrhosis, Onset Age: 43 Substance use disorder Social History Household Members: Spouse Housing: House Are you a primary childcare administrator to a significant other at home: No Do you presently have visiting nurse or other home services: No Alcohol intake: current Alcohol intake frequency: holidays/special occasions only Patient Tobacco Use Status: Never used Tobacco e-Cigarette/Vaping Use: Never Used Second Hand Smoke Exposure: No service: No Current occupational status: disabled Current occupation: right handed Cognitive needs: No Hearing needs: No Vision needs: No Questionnaire Thrive Questionnaire Date Thrive assessed: 04/18/25 I am a: Patient What is your living situation today?: I have a steady place to live Within the past 12 months, did the food you bought not last and you didn't have the money to get more?: Sometimes True Within the past 12 months, did you worry whether your food would run out before you got money to buy more?: Sometimes True Do you have trouble paying for medicines?: No Do you have trouble getting transportation to medical appointments?: Yes Do you have trouble paying your heating and electricity bill?: Yes Do you have trouble taking care of your child, family member or friend?: No Do you have trouble with day-to-day activities such as bathing, preparing meals, shopping, managing finances, etc.?: Yes Are you currently unemployed and looking for a job?: No Are you interested in more education?: No THRIVE Score: 4 OCTAVIO-7 AMB Questionnaire OCTAVIO-7 Date OCTAVIO - 7 assessed: 12/15/24 Source: Developed by Drs. Maynor Grady, Catherine Ricci, Srinivasan Sam and colleagues, with an educational lavell from [employer]. Review of Systems Const All systems reviewed & are unremarkable except as noted in HPI and below Card Denies chest pain at rest, Denies chest pain with activity, Denies edema, Denies irregular heart rhythm, Denies claudication, Denies dyspnea, Denies dyspnea on exertion, Denies orthopnea, Denies paroxysmal nocturnal dyspnea and Denies slow heart rate Resp Denies cough, Denies dyspnea and Denies dyspnea on exertion GI Denies abdominal pain, Denies change in bowel habits, Denies excessive flatus, Denies nausea and Denies vomiting Physical exam (Primary Care) Vital Signs: Last Vital Signs Temp 97.5 F 08/15/25 14:42 Pulse 63 08/15/25 14:42 BP 132/80 08/15/25 14:42 Pulse Ox 99 08/15/25 14:42 Oxygen Delivery Method Room Air 08/15/25 14:42 BMI result Body Mass Index 32.6 BMI Assessment/Plan discussion: High BMI High, discussed plan: lifestyle, weight reduction, dietary and physical activity Tobacco/Smoking Status: Tobacco use Status Tobacco use date assessed 08/15/25 08/15/25 14:44 Patient Tobacco Use Status Never used Tobacco 08/15/25 14:44 e-Cigarette/Vaping Use Never Used 08/15/25 14:44 Thrive Assessment: Date of Thrive Assessment Date Thrive assessed 04/18/25 08/15/25 14:44 HENMT Head: Yes normal to inspection, Yes normocephalic and Yes atraumatic Ears: external ears normal Eyes General: appearance normal, both eyes and all related structures Eyelids: Yes eyelids normal Conjunctivae: conjunctivae normal Neck Neck: Yes normal visual inspection and Yes supple Resp Effort & Inspection: normal respiratory effort Auscultation: clear to auscultation bilaterally Cardio Jugular venous distension: no JVD Rate: regular rate Rhythm: regular rhythm Heart sounds: S1 normal heart sound present and S2 normal heart sound present GI Inspection: Yes normal to inspection Palpation (GI): Soft to palpation and nontender Auscultation: normal bowel sounds Skin General skin exam: no rashes or lesions noted Neuro General: no focal motor deficits Extrem General: Yes full ROM Psych Appearance: grossly normal Office Procedures Flu Questionnaire Does the patient have a severe egg allergy?: No Does the patient have severe life threatening allergies?: No Does the patient have a fever or illness today?: No Has the patient ever had Guillain-Schulenburg Syndrome?: No Has the patient ever had any past reaction to a flu shot?: No Results AMB Hemoglobin A1c AMB Hemoglobin A1c 5.9 % Last Edit by INDY Martinez on 08/15/25 15:04 Immunizations Fluarix [id number] (PF) 45 mcg (15 mcg x 3)/0.5 mL IM syringe Performing Provider: Aniya Hillman MD Performing Location: [facility] Administered by: Modesta Cordova LPN on 08/15/25 15:31 Dose Route Admin Location Dispensed Lot Number Expiration Date [facility] Process Treater 0.5 mL IM Left Deltoid 0.5 mL [id number] 06/30/26 [id number] [employer] VIS Given Date VIS Provided VIS Publication Date 08/15/25 Single Vaccine 24 Eligibility Eligibility Date Funding Source Not [facility] Eligible 08/15/25 Private Results Reviewed Results Reviewed: Laboratory Last Values Hgb A1c (Clinic) 5.9 % (4.0-6.0) 08/15/25 14:39 Coding Level of Care Code Est Pt Prev Care 40-64y(90228) Diagnoses Physical exam Z00.00 Type 2 diabetes mellitus without complication, without long-term current use of insulin E11.9 Diabetes mellitus residential insulin use: without residential use Diabetes mellitus complication status: without complication Moderate recurrent major depression F33.1 Time Spent (min) 31 Assessment & Plan Assessment & Plan (1) Physical exam: Code(s): Z00.00 - Encounter for general adult medical examination without abnormal findings Category: Medical (2) Type 2 diabetes mellitus: Code(s): E11.9 - Type 2 diabetes mellitus without complications Category: Medical Qualifiers: Diabetes mellitus residential insulin use: without extermination inspector use Diabetes mellitus complication status: without complication Qualified Code(s): E11.9 - Type 2 diabetes mellitus without complications (3) Moderate recurrent major depression: Code(s): F33.1 - Major depressive disorder, recurrent, moderate Category: Medical Plan Plan 1. Physical exam Repeat in a year. Continue mammogram yearly. 2. Diabetes mellitus The patient's A1c of 5.9 indicates stable diabetes. She will continue her current dose of metformin. 3. Anxiety, Depression, And Nightmares The patient is followed by psychiatry and will continue her regimen of buspirone for anxiety, fluoxetine for depression, and prazosin for nightmares. Orders: Orders Microalbumin, Random (w Creat) 4 Months R80.9 - Proteinuria, unspecified Vitamin D 25-OH Total 4 Months E55.9 - Vitamin D deficiency, unspecified Comprehensive [place]. Panel Fast 4 Months M47.812 - Spondylosis without myelopathy or radiculopathy, cervical region AMB Hemoglobin A1c Today E11.9 - Type 2 diabetes mellitus without complications Lipid Panel 4 Months E78.5 - Hyperlipidemia, unspecified Vitamin B12 and Folate 4 Months E53.8 - Deficiency of other specified B group vitamins Influenza [id number] Immunization Today Z23 - Encounter for immunization Medications: Refilled pantoprazole 40 mg PO DAILY 90 tabs 1RF metformin 500 mg PO DAILY 90 tabs 1RF 90 days lactulose 10 grams (15 mL) PO BEDTIME PRN 473 mL 1RF constipation 90 days K59.00 - Constipation, unspecified
[2025-08-15 14:42] VITALS: BP 132/80; PULSE 63; TEMP 36.4; O2SAT 99; BMI 32.6
== END 2025-08-15 15:29 | disposition home or self-care (01) ==
LOC: HO.HMCH 14:16
PROVIDERS: PCP Internal Medicine; Visit Provider Internal Medicine
DX: Z00.00 Encounter for general adult medical examination without abnormal findings (principal); E11.9 Type 2 diabetes mellitus without complications; F33.1 Major depressive disorder, recurrent, moderate; Z23 Encounter for immunization

== ENCOUNTER → 2025-08-15 14:15 | Outpatient (BNVA) | payer OTHER, SELFPAY | PROVIDERS: PCP Internal Medicine; Visit Provider Internal Medicine | DX: Z00.00 Encounter for general adult medical examination without abnormal findings (principal); E11.9 Type 2 diabetes mellitus without complications; F33.1 Major depressive disorder, recurrent, moderate; F41.9 Anxiety disorder, unspecified; F51.5 Nightmare disorder; K21.9 Gastro-esophageal reflux disease without esophagitis; E55.9 Vitamin D deficiency, unspecified; R80.9 Proteinuria, unspecified; M47.812 Spondylosis without myelopathy or radiculopathy, cervical region; E78.5 Hyperlipidemia, unspecified; E53.8 Deficiency of other specified B group vitamins; Z23 Encounter for immunization | CPT/HCPCS: 83036; 90471; 90656; 99396 ==

== ENCOUNTER 2025-08-17 09:30 | Outpatient (REF) | payer OTHER, SELFPAY ==
[2025-08-17 12:05] LABS: Folate 11.7 ng/mL (> or = 4.0); Vitamin B12 1059 pg/mL (200-900)
[2025-08-17 12:27] LABS: Microalbum/Creatinine Ratio Ur 10.3 ug/mg cr (<30)
[2025-08-17 13:27] LABS: Alanine Aminotransferase 143 U/L (0-31); Albumin Level 4.4 g/dL (3.5-5.0); Alkaline Phosphatase 113 U/L (39-117); Anion Gap 10 (12-20); Aspartate Amino Transferase 108 U/L (5-31); Blood Urea Nitrogen 17 mg/dL (9-16); Calcium 9.2 mg/dL (8.4-10.2); Carbon Dioxide 29 mmol/L (22-29); Chloride 108 mmol/L (96-108); Cholesterol 123 mg/dL (<200); Estimated Glomerular Filt Rate > 60; HDL Cholesterol 59 mg/dL (>40); Potassium 3.9 mmol/L (3.3-5.1); Sodium 143 mmol/L (135-145); Total Protein 7.1 g/dL (6.5-8.0); Triglycerides 64 mg/dL (<150)
== END 2025-08-17 09:31 | disposition home or self-care (01) ==
LOC: HO.LAB 09:30
PROVIDERS: Absent Provider Internal Medicine; PCP Internal Medicine; Visit Provider Physician Assistant Surgical
DX: E53.8 Deficiency of other specified B group vitamins (principal); R80.9 Proteinuria, unspecified; E55.9 Vitamin D deficiency, unspecified; E11.69 Type 2 diabetes mellitus with other specified complication; E78.5 Hyperlipidemia, unspecified; E66.9 Obesity, unspecified; Z98.84 Bariatric surgery status
CPT/HCPCS: 36415; 80053; 80061; 82043; 82306; 82570; 82607; 82746; 99212

== ENCOUNTER 2025-08-17 09:30 | Outpatient (AMB) | payer OTHER, SELFPAY ==
--- NOTE | 2025-08-17 09:35 | A.OFFVIS_ITS ---
VS Expanded 08/17/25 09:48 BP 140/72 H Blood Pressure Location Rt brachial Blood Pressure Position Sitting Pulse 76 Pulse Source Pulse Oximeter Temp 97.5 F Temperature Source Temporal Artery Scan Pulse Oximetry 98 Oxygen Delivery Method Room Air Height 5 ft 2 in Weight 175 lb 9.6 oz BMI 32.1 Body Fat % 37.7 Body Fat Mass 66.2 Fat Free Mass 109.4 Visceral Fat Rating 10.0 Body Water % 44.1 Body Water Mass 77.4 Muscle Mass/Score 103.8 Basal Metabolic Rate/Score 1,489 Intake Visit Reasons: (OV) PO LSG 09/06/[address] Maintenance Supervisor Required: Yes Right Of Way Maintenance Supervisor Name: Lorena Gamez, [id number] Allergies penicillin V Allergy (Intermediate, Verified 08/17/25 09:49) Hives Medication List - Last Reconciled 08/17/25 by SANDI Carbone acetaminophen ER (Tylenol Arthritis Pain) 1,300 mg (2 x 650 mg) PO Q12H PRN 30 days atorvastatin 40 mg PO BEDTIME 90 days blood sugar diagnostic (FreeStyle Test strips) Use 1 test strip once a day buspirone mg PO DAILY cetirizine (All Day Allergy (cetirizine)) 10 mg PO DAILY PRN 90 days cyclobenzaprine 10 mg PO BID PRN eszopiclone 3 mg PO BEDTIME fluoxetine 40 mg PO DAILY hydroxyzine HCl 25 mg PO DAILY inulin (Fiber Gummies) 2 grams PO DAILY lactulose 10 grams (15 mL) PO BEDTIME PRN 90 days lancets (Ultra-Care Lancets) USE 1 LANCET TO TEST BLOOD SUGAR ONCE DAILY pantoprazole 40 mg PO DAILY polyethylene glycol 3350 17 grams PO DAILY PRN 30 days prazosin 5 mg PO BEDTIME sennosides (Senokot Extra Strength) 17.2 mg PO BID PRN simethicone (Gas Relief (simethicone)) 250 mg (2 x 125 mg) PO BID PRN 30 days sumatriptan succinate 25 mg PO Q2-4H PRN 30 days tirzepatide (weight loss) (Zepbound) 5 mg (0.5 mL) subcut QWEEK Ventolin HFA 90 mcg/actuation (albuterol sulfate) 2 puffs PO Q6H PRN NS walker (Ultra-Light Rollator misc) As directed zinc gluconate 30 mg PO DAILY HPI Comments Details: This is a 59 yo F who is s/p LSG 09/06/2021. Weight loss of 12.2lb since last OV 3mo ago. She continues to see her therapist. At last visit she started Zepbound. Occasional constipation, but this is not new. No nausea, bloating. Reports blood sugars have been perfect . Were previously low but was on metformin previously and stopped this. PCP is aware of this. Present meal plan includes: pt reports adequate hydration at last visit gave the following plan- Orgain 2 shakes per day with 2 scoops, plus one meal with protein or vegetables pt reports she is following this plan. Exercise routine includes: has a walking pad in basement, likes to walk outside says she walks about 3x/week Pt reports some issues of excess skin of abdomen. She is experiencing rashes which are itchy. Was given a topical cream by PCP. She has to shower more frequently and clean the area often to try to prevent rashes. Has to wear compressive garment to hold excess skin in place and prevent movement. It is hard to find clothing that fits appropriately or comfortably. Have you been diagnosed with reflux (GERD)? Score 0-5: 0=no symptoms, 1=noticeable but not bothersome (slight or occasional), 2=noticeable, bothersome but not daily, 3=bothersome and daily, 4=affects daily activities, 5=incapacitating, unable to do daily activities How bad is the heartburn: 4 Heartburn when lying down: 3 Heartburn when standing up: 2 Heartburn after meals: 3 Does heartburn change your diet: 2 Does heartburn wake you up from sleep: 3 Do you have difficulty swallowin Do you have pain with swallowin If you take medication for reflux, does this affect your daily life: 1 Total score: 20 PFSH Medical History Moderate recurrent major depression Macromastia History of gastrectomy Steatosis, liver Presence of dental bridge Hx of head injury Migraines Hx of cardiac murmur Patient is [place] PTSD (post-traumatic stress disorder) Insomnia Bipolar 1 disorder Hyperlipidemia Sleep apnea with use of continuous positive airway pressure (CPAP) Plantar fasciitis of right foot Hypovitaminosis D Pure hypercholesterolemia Moderately severe recurrent major depression Morbid obesity Change in bowel habit All medications reviewed Anxiety and depression High cholesterol Gastric ulcer Carpal tunnel syndrome De Quervain's disease (radial styloid tenosynovitis) Asthma Type 2 diabetes mellitus Surgical History Hx of breast reduction, elective History of weight loss surgery Hx of tubal ligation History of appendectomy (~2013) Family History Mother Alzheimers disease Father Alzheimers disease Diabetes Parkinson disease Mother Alzheimers disease Osteoarthritis Rheumatoid arthritis Sister Mental disability Sister Cirrhosis Son Cirrhosis, Onset Age: 43 Substance use disorder Social History Household Members: Spouse Housing: House Are you a primary rn care manager to a significant other at home: No Do you presently have visiting nurse or other home services: No Alcohol intake: current Alcohol intake frequency: holidays/special occasions only Patient Tobacco Use Status: Never used Tobacco e-Cigarette/Vaping Use: Never Used Second Hand Smoke Exposure: No service: No Current occupational status: disabled Current occupation: right handed Cognitive needs: No Hearing needs: No Vision needs: No Assessment & Plan Assessment & Plan (1) Obesity: Code(s): E66.9 - Obesity, unspecified Category: Medical (2) S/P laparoscopic sleeve gastrectomy: Code(s): Z98.84 - Bariatric surgery status Category: Surgical Plan Will refill Zepbound at 7.5mg today. Pt doing well with nutrition plan but should increase exercise, not hitting goal of 2000 hammad/week. She will continue to text me with weight measurements. Clotrimazole ointment rx sent. Target weight for panniculectomy 147lbs. Labs done in March. RTC in November. Medications: New clotrimazole 1% 1 appl topical BID 45 grams 3RF tirzepatide (weight loss) (Zepbound) 7.5 mg (0.5 mL) subcut QWEEK 2 mL 0RF Discontinued tirzepatide (weight loss) (Zepbound) Discontinued Reason: Doctor's Order 5 mg (0.5 mL) subcut QWEEK 2 mL 0RF
[2025-08-17 09:48] VITALS: BP 140/72; PULSE 76; TEMP 36.4; O2SAT 98; BMI 32.1
--- OUTSIDE RECORDS SUMMARY | 2025-08-17 17:30 | XMS_ITS | Clinical Summary ---
Author Organization [facility] Address [address] [place] [address] Phone Care Team Providers Care [employer] Name Role Phone Aniya Hillman MD Primary Care Provider [phone] Surgical History Surgery Date Site/Laterality Comments APPENDECTOMY PROCEDURE: LAPAROSCOPIC APPENDECTOMY APPENDECTOMY PROCEDURE: HISTORICAL APPENDECTOMY TUBAL LIGATION PROCEDURE: HISTORICAL TUBAL LIGATION ND BREAST REDUCTION Bilateral 2023 Medical History Medical [...] Health Maintenance Due Date Last Done Comments Colorectal Cancer Screening: Colonoscopy 1964 Diabetes: Annual GFR (Glomerular Filtration Rate) 1964 Diabetes: Annual Foot Exam 1974 Diabetes: Annual Retina Eye Exam 1974 Cervical Cancer Screening: Pap Smear 1985 Zoster Vaccines (1 of 2) 2014 Pneumococcal Vaccine: 50+ Years (2 of 2 - PCV) 06/28/2017 06/28/2016 DTaP,Tdap,and Td Vaccines (2 - Td or Tdap) 06/26/2019 06/26/2009 Cholesterol Screening (Lipid Panel) 08/27/2022 HIV Screening 08/27/2022 Hepatitis C Screening 08/27/2022 Medicare Annual Wellness Visit 08/27/2022 Social Influencers of Health Screening 08/27/2022 Diabetes: Annual Urine Albumin-Creatinine Ratio (uACR) 09/13/2022 Diabetes: Blood Sugar Control Test (HGBA1C) 09/13/2022 Hypertension/CHF/CAD Annual BMP Blood Test 09/13/2022 Depression Screening 09/29/2024 COVID-19 Vaccine ( - season) 2025 Influenza Vaccine (#1) 2025 08/02/2024 Breast Cancer Screening 11/15/2026 11/15/19 25, 01/31/2023, [...] For Mammography at [facility], [address] [place] [address], [id number], . -------- FINAL REPORT -------- Dictated By: Echo Bradley Dictated Date: 11/15/2024 10:14 ET Assigned Physician: Echo Bradley Reviewed and Electronically Signed By: Echo Bradley Signed Date: 11/15/2024 10:15 ET Workstation ID: [id number] Transcribed By: Self Edit Transcribed Date: 11/15/2024 10:14 ET Narrative 11/15/2024 10:15 AM EST HISTORY: Screening. Reduction mammoplasty in 2023. COMPARISON: 01/31/23, 01/28/22, 01/24/21 TECHNIQUE: Bilateral digital breast tomosynthesis was performed in the CC and MLO projections. Computer aided detection with [employer] 3D 3.1 was employed. BREAST DENSITY: B [...] [facility]. Computer aided detection with [employer] 3D 3.1was employed. BREAST DENSITY: B - [...] [facility], [address] [place] [address], [id number], . -------- FINAL REPORT -------- Dictated By: Echo Bradley Dictated Date: 11/15/2024 10:14 ET Assigned Physician: Echo Bradley Reviewed and Electronically Signed By: Echo Bradley Signed Date: 11/15/2024 10:15 ET Workstation ID: [id number] Transcribed By: Self Edit Transcribed Date: 11/15/2024 10:14 ET Aniya Hillman MD IMG BI PROCEDURES Final Result from Last 3 Months or Most Recently Relevant to Health Maintenance Insurance [employer] Member Subscriber Plan / Payer (Ef fective 2024-Present) Name:Katlin Bonilla Relation to Subscriber:Self Name:Katlin Bonilla Payer ID:[id number] Group ID:[id number] Type:Not on file Address: [place] [address] [place] [address] Care Teams Oil Distributor Relationship Specialty Start Date End Date Aniya Hillman MD [address] [facility] , [address] [facility] D[facility] SHONA Worrell PCP - General Internal Medicine 11/08/24
== END 2025-08-17 10:15 | disposition home or self-care (01) ==
LOC: HO.HBS 09:30
PROVIDERS: PCP Internal Medicine; Visit Provider Physician Assistant Surgical
DX: E66.9 Obesity, unspecified (principal); Z98.84 Bariatric surgery status
CPT/HCPCS: 99214; G2211